=== PATIENT | male | born 1965 | race Hispanic/Latino ===

== ENCOUNTER 2016-12-15 07:51 | Outpatient (CLI) | payer BC ==
[2016-12-15 08:23] LABS: Blood Urea Nitrogen 11 mg/dL (9-20)
--- NOTE | 2016-12-15 10:41 | Cat Scan Report ---
CTA abdomen, pelvis, lower extremities: Peripheral vascular disease. 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 Following IV contrast administration transverse images are obtained from the low chest to the feet with coronal and sagittal 2-D reformatted images as well as 3-D MIPP images. Comparison made to prior exam April 2013. Images of the lower chest abdomen and pelvis demonstrate bilateral fat containing inguinal hernias but no other soft tissue findings. There is a total right hip replacement. The hip has occurred since prior study but no change in hernias. The visualized portion of the thoracic aorta is unremarkable. The major aortic branches are present and patent. There is mural thrombus in the distal abdominal aorta with some scattered mural calcification. No significant stenosis and no aneurysm noted. The left common iliac artery is moderately larger than the left with a maximum diameter of 1.5 cm. This is essentially the same as previously noted. The right common iliac artery contains mural thrombus but no significant stenosis. Both iliac arteries bifurcate normally but there appear to be stenotic lesions involving the internal iliacs bilaterally. There is focal mural thrombus involving the proximal right common femoral artery narrowing the lumen less than 50%. Just proximal to the right femoral bifurcation there may be a significant stenosis however visualization is compromised by streak artifact of the prosthetic right hip. This was previously present. Right lower extremity: The FSA is continuously patent as is the popliteal and common peroneal artery. Trifurcation is patent and there is continuous 3 vessel runoff to the foot. Left lower extremity: The SFA occludes in the mid femur. This is slightly higher than the occlusion seen on prior study. An SFA graft appears occluded. 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 There is proximal reconstitution of the anterior tibial artery which is then continuously patent to the foot. There is distal reconstitution of the posterior tibial artery supplying the foot. Impressions: 1. Noncritical appearing stenoses involving the right iliac, and common femoral arteries. High-grade stenoses of the internal iliac artery. 2. Stable dilatation of the left common iliac artery with persistent high grade stenosis of the internal iliac artery. 3. SFA occlusion with suboptimal collateral reconstitution of runoff vessels to the foot. SFA graft occlusion.
== END 2016-12-15 07:52 | disposition home or self-care (01) ==
LOC: CT 07:51
PROVIDERS: ATTEND Surgery Vascular Surgery
DX: I71.4 Abdominal aortic aneurysm, without rupture (principal); I70.213 Atherosclerosis of native arteries of extremities with intermittent claudication, bilateral legs; I72.3 Aneurysm of iliac artery; I74.09 Other arterial embolism and thrombosis of abdominal aorta; K40.90 Unilateral inguinal hernia, without obstruction or gangrene, not specified as recurrent; F17.200 Nicotine dependence, unspecified, uncomplicated; Z96.641 Presence of right artificial hip joint
CPT/HCPCS: 36415; 75635; 82565; 84520; Q9967

== ENCOUNTER 2017-03-28 08:15 | Day surgery (SDC) | payer BC ==
[~2017-03-28 08:15] MED LIST: ANCEF/STERILE WATER 2 GM/20 ML 2 GM/20 ML SYRINGE IV NR; NACL 0.9% 1000 ML 1,000 ML IV SCH
[2017-03-28] MEDS ORDERED: SODIUM BICARBONATE ONE (11:48)
[2017-03-28] MEDS ORDERED: XYLOCAINE 1% 20 mL ONE (11:48)
[2017-03-28] MEDS ORDERED: NEO SYNEPHRINE/NS Syringe(OR USE) IV ONE (12:00)
[2017-03-28] MEDS ORDERED: NACL BACTERIOSTATIC INFILTRATI ONE (12:13)
[2017-03-28 12:35] LABS: Basophils % (Auto) 1.6 % (0.0-1.8); Eosinophils % (Auto) 6.1 % (0.0-4.3); Hematocrit 38.8 % (35.5-45.6); Mean Corpuscular HGB Conc 33 % (32-34); Mean Corpuscular Hemoglobin 32 pg (28-32); Mean Corpuscular Volume 97 fl (84-94); Platelet Count 272 K/mm3 (140-440); Red Blood Count 4.02 M/mm3 (3.65-5.03); White Blood Count 8.1 K/mm3 (4.5-11.0)
[2017-03-28 12:46] LABS: INR 1.16 (0.87-1.13)
[2017-03-28 12:48] LABS: Anion Gap 15 mmol/L; BUN/Creatinine Ratio 19; Blood Urea Nitrogen 17 mg/dL (9-20); Calcium 9.3 mg/dL (8.4-10.2); Carbon Dioxide 25 mmol/L (22-30); Chloride 100.4 mmol/L (98-107); Glucose 96 mg/dL (75-100); Potassium 4.4 mmol/L (3.6-5.0); Sodium 136 mmol/L (137-145)
[2017-03-28] MEDS ORDERED: PEPCID PO NR (13:00)
[2017-03-28] MEDS ORDERED: VERSED IV NR (13:00)
[2017-03-28] MEDS ORDERED: DIPRIVAN 10 MG/ML IV ONE ×2 (13:10→14:12)
[2017-03-28] MEDS ORDERED: DILAUDID ONE (13:11)
[2017-03-28] MEDS ORDERED: XYLOCAINE MPF 2% ONE (13:11)
--- NOTE | 2017-03-28 13:35 | Short Stay Summary ---
Short Stay Documentation Date of service: 03/28/17 Narrative H&P: See H&P - History H&P: obtained from office - Allergies and Medications Current Medications: Allergies No Known Allergies Allergy (Verified 03/27/17 10:30) Home Medications Medication Instructions Recorded Confirmed Last Taken Type AtorvaSTATin [Lipitor] 20 mg PO QHS 01/27/17 03/27/17 03/27/17 History Clopidogrel [Plavix] 75 mg PO QDAY 01/27/17 03/28/17 03/28/17 05:00 History Gemfibrozil [Lopid] 600 mg PO BID 01/27/17 03/27/17 03/27/17 History Apixaban [Eliquis] 5 mg PO Q12HR #60 tablet 03/12/17 03/28/17 03/28/17 05:00 Rx oxyCODONE /ACETAMINOPHEN [Percocet 1 tab PO Q6HR PRN 03/28/17 03/28/17 03/27/17 History 5/325 mg] Active Medications Famotidine (Pepcid) 20 mg PO PREOP NR Stop: 03/28/17 23:59 Last Admin: 03/28/17 13:21 Dose: 20 mg Cefazolin Sodium (Ancef/Sterile Water 2 Gm/20 Ml) 2 gm in 20 mls @ 80 mls/hr IV PREOP NR PRN Reason: Protocol Stop: 03/28/17 23:59 Sodium Chloride (Nacl 0.9% 1000 Ml) 1,000 mls @ 42 mls/hr IV DIRECT KELLY Last Admin: 03/28/17 12:25 Dose: 42 mls/hr Midazolam HCl (Versed) 2 mg IV PREOP NR Stop: 03/28/17 23:59 Last Admin: 03/28/17 13:22 Dose: 2 mg - Brief post op/procedure progress note Date of procedure: 03/28/17 Pre-op diagnosis: Nonhealing Left Leg Wound Post-op diagnosis: same Procedure: 1. Excisional Debridement of Left Leg Wound Skin and Soft Tissue Measuring (10 x 1.5 x 1 cm) 2. Wound VAC Placement Anesthesia: MAC, local Surgeon: BRITTNEY PETERSEN Estimated blood loss: minimal Pathology: list (leg skin and soft tissue) Specimen disposition: discarded - Disposition Condition at discharge: Good Disposition: DC-01 TO HOME OR SELFCARE Short Stay Discharge Plan Activity: no restrictions Wound: per wound nurse instructions Follow up with: LENA MCCARTHY MD [Primary Care Provider] - 7 Days BRITTNEY PETERSEN MD [Staff Physician] - 14 Days Prescriptions: HYDROcodone/APAP 5-325 [[place] 5/325] 1 each PO Q6HR PRN #50 tablet PRN Reason: Pain
[2017-03-28] MEDS ORDERED: ZOFRAN IV PRN (13:42)
[2017-03-28] MEDS ORDERED: DILAUDID IV PRN (13:42)
[2017-03-28] MEDS ORDERED: PERCOCET 5/325 PO PRN (13:42)
--- NOTE | 2017-03-28 13:42 | Anesthesia Consultation ---
Anesthesia Consult and Med Hx Date of service: 03/28/17 - Airway Anesthetic Teeth Evaluation: Good ROM Head & Neck: Adequate Mental/Hyoid Distance: Adequate Mallampati Class: Class II Intubation Access Assessment: Probably Good - Pulmonary Exam CTA: Yes - Cardiac Exam Cardiac Exam: RRR - Pre-Operative Health Status ASA Pre-Surgery Classification: ASA2 Proposed Anesthetic Plan: General - Pulmonary Hx Smoking: Yes Hx Respiratory Symptoms: No - Cardiovascular System Hx Hypertension: No Hx Peripheral Vascular Disease: Yes (s/p reconstructive surgeries both LEs) - Central Nervous System Hx Psychiatric Problems: No - Gastrointestinal Hx Gastroesophageal Reflux Disease: No - Other Systems Hx Alcohol Use: Yes (occas) Hx Substance Use: No Hx Cancer: No
--- NOTE | 2017-03-28 13:42 | Anesthesia Day of Surgery ---
Anesthesia Day of Surgery - Day of Surgery Patient Examined: Yes Patient H&P Reviewed: Yes Patient is NPO: Yes
[2017-03-28] MEDS ORDERED: SUBLIMAZE ONE (14:03)
[2017-03-28] MEDS ORDERED: XYLOCAINE 1% 20 mL INFILTRATI ONE (14:03)
[2017-03-28] MEDS ORDERED: NACL 0.9% IR ONE (14:03)
[2017-03-28] MEDS ORDERED: ZOFRAN ONE (14:14)
[2017-03-28 15:24] VITALS: BP 112/78
--- NOTE | 2017-03-28 17:03 | Post Anesthesia Evaluation ---
- Post Anesthesia Evaluation Patient Participated: Yes Airway Patent: Yes Stable Respiratory Function: Yes Nausea/Vomiting: No Temp > 96.8F: Yes Pain Manageable: Yes Adequeate Hydration: Yes Anesthesia Complications: No
--- NOTE | 2017-04-03 10:33 | Operative Report ---
Operative Report Operative Report: Date of Procedure: 03/28/2017 Pre-operative Diagnosis: Nonhealing Left Leg Wound Post-operative Diagnosis: Same Procedure(s): 1. Excisional Debridement of Left Leg Wound Skin and Soft Tissue Measuring (10 x 1.5 x 1 cm) 2. Wound VAC Placement Surgeon: Josemanuel Deng M.D. Child Day Care Provider: None Anesthesia: Local/MAC EBL: Minimal Counts: Correct Complications: None Condition: Stable Findings: The wound was debrided to healthy viable tissue Specimen: Necrotic skin and soft tissue was discarded Indication: The patient is a 51-year-old male who underwent a redo left femoropopliteal bypass and had superficial wound dehiscence of the calf wound. He healed the superior portion however the mid and distal portion did not heal despite wound care. He is in need of debridement and wound VAC placement. He was given the risks, benefits, and alternative procedures and consented to the procedure. Description of Procedure: The patient was brought to the operating room and laid in supine position. After he was adequately sedated his left leg was prepped and draped in normal sterile fashion. A 10 blade was used to sharply excise the necrotic skin edges on each side of the wounds until I was at the healthy skin edges. Curettes were then used to debris the soft tissue within the bed until all necrotic and fibrinous tissue had been removed. The wound was then copiously irrigated and then a wound VAC was placed sterilely with a adequate seal. A Kerlix was then loosely wrapped around the leg. The patient tolerated the procedure well. All sponge, needle, and instrument counts were correct. The patient was taken to the recovery area in stable condition.
== END 2017-03-28 17:11 | disposition home or self-care (01) ==
LOC: OR 08:15
PROVIDERS: ATTEND Surgery Vascular Surgery
DX: T81.89XA Other complications of procedures, not elsewhere classified, initial encounter (principal); L97.229 Non-pressure chronic ulcer of left calf with unspecified severity; I70.212 Atherosclerosis of native arteries of extremities with intermittent claudication, left leg; E78.00 Pure hypercholesterolemia, unspecified; M19.90 Unspecified osteoarthritis, unspecified site; F17.200 Nicotine dependence, unspecified, uncomplicated; Z79.01 Long term (current) use of anticoagulants; Z79.899 Other long term (current) drug therapy; Z98.890 Other specified postprocedural states; Z96.641 Presence of right artificial hip joint; Z86.718 Personal history of other venous thrombosis and embolism; Z80.9 Family history of malignant neoplasm, unspecified; Y83.2 Surgical operation with anastomosis, bypass or graft as the cause of abnormal reaction of the patient, or of later complication, without mention of misadventure at the time of the procedure
CPT/HCPCS: 11043; 36415; 80048; 85025; 85610; J0690; J1170; J2250; J2370; J2405; J2704; J3010; J7030

== ENCOUNTER 2017-05-19 12:07 | Inpatient (IN) | payer BC, OTHER ==
[2017-05-19 15:23] LABS: Basophils # (Auto) 0.1 K/mm3 (0.0-0.1); Basophils % (Auto) 0.8 % (0.0-1.8); Eosinophils # (Auto) 0.2 K/mm3 (0.0-0.4); Eosinophils % (Auto) 2.1 % (0.0-4.3); Hematocrit 43.6 % (35.5-45.6); Hemoglobin 14.5 gm/dl (11.8-15.2); Lymphocytes # (Auto) 2.5 K/mm3 (1.2-5.4); Mean Corpuscular HGB Conc 33 % (32-34); Mean Corpuscular Hemoglobin 32 pg (28-32); Mean Corpuscular Volume 96 fl (84-94); Monocytes # (Auto) 0.6 K/mm3 (0.0-0.8); Monocytes % (Auto) 7.2 % (0.0-7.3); Platelet Count 221 K/mm3 (140-440); Red Blood Count 4.55 M/mm3 (3.65-5.03); Red Cell Distribution Width 16.6 % (13.2-15.2)
[2017-05-19 15:43] LABS: BUN/Creatinine Ratio 13; Blood Urea Nitrogen 12 mg/dL (9-20); Calcium 9.6 mg/dL (8.4-10.2); Hemolysis Index 4
--- NOTE | 2017-05-19 20:42 | Emergency Department Report ---
ED Extremity Problem HPI - General Chief complaint: Extremity Injury, Lower Stated complaint: LEFT FOOT PAIN Time Seen by Provider: 05/19/17 20:09 Source: patient Mode of arrival: Ambulatory Limitations: No Limitations - History of Present Illness Initial comments: 51-year-old male history of left them pop bypass by Dr. Deng has been having increasing pain in the foot with temperature change with some discoloration of the toe on the left side with some rest pain off and on for several days discoloration of the toes is x2wks, some temp change to toes l foot, no black or necrotic tissue MD Complaint: extremity pain Location: left, lower extremity, toe Quality: burning - Related Data Home Medications Medication Instructions Recorded Confirmed Last Taken AtorvaSTATin [Lipitor] 20 mg PO QHS 01/27/17 03/27/17 03/27/17 Clopidogrel [Plavix] 75 mg PO QDAY 01/27/17 03/28/17 03/28/17 05:00 Gemfibrozil [Lopid] 600 mg PO BID 01/27/17 03/27/17 03/27/17 oxyCODONE /ACETAMINOPHEN [Percocet 1 tab PO Q6HR PRN 03/28/17 03/28/17 03/27/17 5/325 mg] Previous Rx's Medication Instructions Recorded Last Taken Type Apixaban [Eliquis] 5 mg PO Q12HR #60 tablet 03/12/17 03/28/17 05:00 Rx HYDROcodone/APAP 5-325 [[place] 1 each PO Q6HR PRN #50 tablet 03/28/17 Unknown Rx 5/325] Allergies Allergy/AdvReac Type Severity Reaction Status Date / Time No Known Allergies Allergy Verified 03/27/17 10:30 ED Review of Systems ROS: Stated complaint: LEFT FOOT PAIN Other details as noted in HPI Comment: All other systems reviewed and negative Constitutional: no symptoms reported. denies: diaphoresis, fever, malaise, weakness Respiratory: denies: no symptoms reported, cough, orthopnea, shortness of breath , SOB with exertion, SOB at rest, stridor, wheezing Cardiovascular: denies: chest pain, palpitations, dyspnea on exertion, orthopnea , edema, syncope, paroxysmal nocturnal dyspnea Gastrointestinal: denies: abdominal pain, nausea, vomiting, diarrhea, constipation, hematemesis, melena, hematochezia Musculoskeletal: arthralgia, myalgia Skin: change in color Neurological: denies: numbness, paresthesias, confusion, abnormal gait, vertigo ED Past Medical Hx - Past Medical History Hx Hypertension: No Hx HIV: No Additional medical history: ruptured blood vessel to left leg - Surgical History Hx Cholecystectomy: No Hx Appendectomy: No Hx Breast Surgery: No Additional Surgical History: bypass left leg - Social History Smoking Status: Former Smoker Substance Use Type: None - Medications Home Medications: Home Medications Medication Instructions Recorded Confirmed Last Taken Type AtorvaSTATin [Lipitor] 20 mg PO QHS 01/27/17 03/27/17 03/27/17 History Clopidogrel [Plavix] 75 mg PO QDAY 01/27/17 03/28/17 03/28/17 05:00 History Gemfibrozil [Lopid] 600 mg PO BID 01/27/17 03/27/17 03/27/17 History Apixaban [Eliquis] 5 mg PO Q12HR #60 tablet 03/12/17 03/28/17 03/28/17 05:00 Rx HYDROcodone/APAP 5-325 [[place] 1 each PO Q6HR PRN #50 tablet 03/28/17 Unknown Rx 5/325] oxyCODONE /ACETAMINOPHEN [Percocet 1 tab PO Q6HR PRN 03/28/17 03/28/17 03/27/17 History 5/325 mg] ED Physical Exam - General Limitations: No Limitations General appearance: alert, in no apparent distress, anxious - Head Head exam: Present: atraumatic, normocephalic - Eye Eye exam: Present: normal appearance, PERRL, EOMI - ENT ENT exam: Present: normal exam, normal orophraynx, mucous membranes moist - Neck Neck exam: Present: normal inspection. Absent: tenderness, meningismus - Respiratory Respiratory exam: Present: normal lung sounds bilaterally. Absent: respiratory distress, wheezes, rales, rhonchi, stridor, chest wall tenderness, accessory muscle use - Cardiovascular Cardiovascular Exam: Present: regular rate, normal heart sounds - GI/Abdominal GI/Abdominal exam: Present: soft. Absent: tenderness, guarding, rebound - Extremities Exam Extremities exam: Present: other (extremity within normal limits left lower extremity dusky and cool toes normal process appreciated chronic poor wound healing left medial thigh ? palpable DP pulse) - Back Exam Back exam: Present: normal inspection, full ROM. Absent: CVA tenderness (R), muscle spasm, paraspinal tenderness, vertebral tenderness - Neurological Exam Neurological exam: Present: alert, oriented X3, CN II-XII intact. Absent: motor sensory deficit - Skin Skin exam: Present: cyanosis, other (no necrosis, cool to touch but +cr). Absent: petechiae, ecchymosis ED Course Vital Signs 05/19/17 12:43 Temperature 98.8 F Pulse Rate 83 Respiratory 18 Rate Blood Pressure 132/75 O2 Sat by Pulse 98 Oximetry - Reevaluation(s) Reevaluation #1: 05/19/17 21:56 Patient had Doppler arterial study of the left lower ext w/ wave form to bypass ED Medical Decision Making - Lab Data Result diagrams: 05/19/17 12:48 05/19/17 15:08 - Radiology Data Radiology results: report reviewed - Medical Decision Making Case discussed with Dr. Bryant who will admit patient for further evaluation and intervention of decreased perfusion left lower extremity history of femoropopliteal bypass patient currently is on eliquis some Plavix case will be discussed with hospitalist for admit Critical care attestation.: If time is entered above; I have spent that time in minutes in the direct care of this critically ill patient, excluding procedure time. ED Disposition Clinical Impression: Vascular insufficiency of limb Disposition: DC-09 OP ADMIT IP TO THIS HOSP Is pt being admited?: Yes Condition: Stable Referrals: NICOLA D[facility] VASCULAR SURGEON [Other] - 3-5 Days Time of Disposition: 21:58
[2017-05-20] MEDS ORDERED: PERCOCET 5/325 ONE (01:21)
--- NOTE | 2017-05-20 04:30 | History and Physical Report ---
History of Present Illness Date of examination: 05/19/17 Date of admission: 05/19/17 22:14 Chief complaint: Left leg pain History of present illness: 51-year-old male with past medical history significant for hyperlipidemia, left popliteal artery aneurysm status bypass graft presented to the emergency department complaining of left foot pain of 2 weeks' duration. Patient saw Dr. Deng in the office on Monday and told him to come to emergency department if the pain is getting worse. patient said pain in the foot is throbbing in nature and sometimes sharp, 4-6 out of 10 in intensity, there is mild discoloration of the foot but no different from what he had when he went to vascular office. The ED doctor called Dr Bryant and recommend to admit for further work up and management. REVIEW OF SYSTEMS: GENERAL: no weight change, no fatigue, no fever HEAD: no head ache EYES: no blurry vision, no acute visual loss EARS: no hearing loss, no discharge, no earache NOSE: no stuffiness, no sneezing, no discharge MOUTH, THROAT AND NECK: no bleeding gums, no sore throat, no swollen neck CARDIAC: no palpitations, no dyspnea on exertion, no orthopnea, no PND, no edema , no chest pain RESPIRATORY: no shortness of breath, no wheeze, no cough, no sputum, no hemoptysis, no asthma GI: no decreased appetite, no nausea, no vomiting, no dysphagia, no diarrhea, no constipation, no abdominal pain URINARY: no change in frequency, no urgency, no polyuria, no hematuria, no incontinence MUSCULOSKELETAL: As stated in the HPI. NEUROLOGIC: no loss of sensation/numbness, no tingling, no tremors, no weakness/ paralysis HEMATOLOGIC: no anemia, no easy bruising SKIN: no rashes ENDOCRINE: no heat/cold intolerance, no polyuria, no polydipsia, no thyroid problems, no diabetes PSYCHIATRIC: no anxiety, no depression, no suicidal ideations Past History Past Medical History: hyperlipidemia, other (popliteal artery aneurysm) Past Surgical History: Other Medications and Allergies Allergies Allergy/AdvReac Type Severity Reaction Status Date / Time No Known Allergies Allergy Verified 03/27/17 10:30 Home Medications Medication Instructions Recorded Confirmed Last Taken Type AtorvaSTATin [Lipitor] 20 mg PO QHS 09/22/17 11/20/17 11/20/17 History Clopidogrel [Plavix] 75 mg PO QDAY 01/27/17 03/28/17 03/28/17 05:00 History Gemfibrozil [Lopid] 600 mg PO BID 01/27/17 03/27/17 03/27/17 History Apixaban [Eliquis] 5 mg PO Q12HR #60 tablet 03/12/17 03/28/17 03/28/17 05:00 Rx HYDROcodone/APAP 5-325 [[place] 1 each PO Q6HR PRN #50 tablet 03/28/17 Unknown Rx 5/325] oxyCODONE /ACETAMINOPHEN [Percocet 1 tab PO Q6HR PRN 03/28/17 03/28/17 03/27/17 History 5/325 mg] Active Meds: Active Medications Apixaban (Eliquis) 5 mg PO Q12HR KELLY PRN Reason: Protocol Atorvastatin Calcium (Lipitor) 20 mg PO QHS KELLY Clopidogrel Bisulfate (Plavix) 75 mg PO QDAY KELLY Gemfibrozil (Lopid) 600 mg PO BID KELLY Oxycodone/Acetaminophen (Percocet 5/325) 2 tab PO Q6H PRN PRN Reason: Pain, Moderate (4-6) Exam - Constitutional Vitals: Temp Pulse Resp BP Pulse Ox 98.5 F 64 18 118/63 95 05/20/17 01:54 05/20/17 01:54 05/20/17 01:54 05/20/17 01:54 05/20/17 01:54 Results - Labs CBC & Chem 7: 05/19/17 12:48 05/19/17 15:08 Labs: Laboratory Last Values WBC 7.9 K/mm3 (4.5-11.0) 05/19/17 12:48 RBC 4.55 M/mm3 (3.65-5.03) 05/19/17 12:48 Hgb 14.5 gm/dl (11.8-15.2) 05/19/17 12:48 Hct 43.6 % (35.5-45.6) 05/19/17 12:48 MCV 96 fl (84-94) H 05/19/17 12:48 MCH 32 pg (28-32) 05/19/17 12:48 MCHC 33 % (32-34) 05/19/17 12:48 RDW 16.6 % (13.2-15.2) H 05/19/17 12:48 Plt Count 221 K/mm3 (140-440) 05/19/17 12:48 Lymph % (Auto) 32.0 % (13.4-35.0) 05/19/17 12:48 [place] % (Auto) 7.2 % (0.0-7.3) 05/19/17 12:48 Eos % (Auto) 2.1 % (0.0-4.3) 05/19/17 12:48 Baso % (Auto) 0.8 % (0.0-1.8) 05/19/17 12:48 Lymph # 2.5 K/mm3 (1.2-5.4) 05/19/17 12:48 [place] # 0.6 K/mm3 (0.0-0.8) 05/19/17 12:48 Eos # 0.2 K/mm3 (0.0-0.4) 05/19/17 12:48 Baso # 0.1 K/mm3 (0.0-0.1) 05/19/17 12:48 Seg Neutrophils % 57.9 % (40.0-70.0) 05/19/17 12:48 Seg Neutrophils # 4.6 K/mm3 (1.8-7.7) 05/19/17 12:48 Sodium 139 mmol/L (137-145) 05/19/17 15:08 Potassium 4.1 mmol/L (3.6-5.0) 05/19/17 15:08 Chloride 99.0 mmol/L (98-107) 05/19/17 15:08 Carbon Dioxide 26 mmol/L (22-30) 05/19/17 15:08 Anion Gap 18 mmol/L 05/19/17 15:08 BUN 12 mg/dL (9-20) 05/19/17 15:08 Creatinine 0.9 mg/dL (0.8-1.5) 05/19/17 15:08 Estimated GFR > 60 ml/min 05/19/17 15:08 BUN/Creatinine Ratio 13 % 05/19/17 15:08 Glucose 111 mg/dL (75-100) H 05/19/17 15:08 Lactic Acid 1.60 mmol/L (0.7-2.0) 05/19/17 15:00 Calcium 9.6 mg/dL (8.4-10.2) 05/19/17 15:08 Total Creatine Kinase 90 units/L (55-170) 05/19/17 15:08 CK-MB (CK-2) 2.0 ng/mL (0.0-4.0) 05/19/17 15:08 Troponin T < 0.010 ng/mL (0.00-0.029) 05/19/17 15:08 Blood Type A POSITIVE 05/19/17 15:08 Antibody Screen Negative 05/19/17 15:08 Assessment and Plan Assessment and plan: Left lower extremity arterial insufficiency - Vascular surgery consulted - Recommend to continue Plavix and eliquis - Continue home medications Hyperlipidemia - Continue gemfibrozil DVT prophylaxis -Patient is on eliquis Disposition - Admit to MedSur floor Advance Directives: Yes VTE prophylaxis?: Chemical Plan of care discussed with patient/family: Yes
[2017-05-20 07:29] LABS: Basophils # (Auto) 0.1 K/mm3 (0.0-0.1); Basophils % (Auto) 0.9 % (0.0-1.8); Eosinophils # (Auto) 0.3 K/mm3 (0.0-0.4); Eosinophils % (Auto) 4.1 % (0.0-4.3); Hemoglobin 13.6 gm/dl (11.8-15.2); Lymphocytes # (Auto) 2.8 K/mm3 (1.2-5.4); Lymphocytes % (Auto) 42.3 % (13.4-35.0); Mean Corpuscular HGB Conc 34 % (32-34); Mean Corpuscular Hemoglobin 32 pg (28-32); Mean Corpuscular Volume 95 fl (84-94); Monocytes # (Auto) 0.7 K/mm3 (0.0-0.8); Monocytes % (Auto) 10.6 % (0.0-7.3); Platelet Count 191 K/mm3 (140-440); Red Blood Count 4.21 M/mm3 (3.65-5.03); Red Cell Distribution Width 16.5 % (13.2-15.2)
[2017-05-20 07:34] LABS: BUN/Creatinine Ratio 14; Blood Urea Nitrogen 13 mg/dL (9-20); Hemolysis Index 6
--- NOTE | 2017-05-20 09:57 | Consultation ---
History of Present Illness - Reason for Consult Consult date: 05/20/17 left lower extremity pain - History of Present Illness This is a 51-year-old male well known to our service. He has an extensive vascular history. He initially had a left sided femoropopliteal bypass graft placed which required a revision. Ultimately, he required multiple subsequent catheterizations with thrombolysis and other interventions. Currently, he has been having left foot pain at rest. He came to the ED last night, with a primary complaint of 2 weeks of left foot pain. An arterial duplex was done at the time which showed significantly diminished flow in the bypass graft and monophasic wave forms in the infrapopliteal vessels. In addition to other medications, he is currently on Plavix and Eliquis at home. Past History Past Medical History: hyperlipidemia, other (popliteal artery aneurysm) Past Surgical History: Other Medications and Allergies Allergies Allergy/AdvReac Type Severity Reaction Status Date / Time No Known Allergies Allergy Verified 03/27/17 10:30 Home Medications Medication Instructions Recorded Confirmed Last Taken Type AtorvaSTATin [Lipitor] 20 mg PO QHS 01/27/17 03/27/17 03/27/17 History Clopidogrel [Plavix] 75 mg PO QDAY 01/27/17 03/28/17 03/28/17 05:00 History Gemfibrozil [Lopid] 600 mg PO BID 01/27/17 03/27/17 03/27/17 History Apixaban [Eliquis] 5 mg PO Q12HR #60 tablet 03/12/17 03/28/17 03/28/17 05:00 Rx HYDROcodone/APAP 5-325 [[place] 1 each PO Q6HR PRN #50 tablet 03/28/17 Unknown Rx 5/325] oxyCODONE /ACETAMINOPHEN [Percocet 1 tab PO Q6HR PRN 03/28/17 03/28/17 03/27/17 History 5/325 mg] Active Meds: Active Medications Apixaban (Eliquis) 5 mg PO Q12HR KELLY PRN Reason: Protocol Atorvastatin Calcium (Lipitor) 20 mg PO QHS KELLY Clopidogrel Bisulfate (Plavix) 75 mg PO QDAY KELLY Gemfibrozil (Lopid) 600 mg PO BID KELLY Oxycodone/Acetaminophen (Percocet 5/325) 2 tab PO Q6H PRN PRN Reason: Pain, Moderate (4-6) Exam - Constitutional Vitals: Temp Pulse Resp BP Pulse Ox 98.4 F 62 18 109/63 94 05/20/17 08:41 05/20/17 08:41 05/20/17 08:41 05/20/17 08:41 05/20/17 08:41 General appearance: Present: no acute distress, well-nourished - EENT ENT: hearing intact, clear oral mucosa - Neck Neck: Present: supple, normal ROM - Respiratory Respiratory effort: normal - Extremities Extremities: abnormal (both lower extremities are warm. The distal aspect of the left toes are slightly cool to the touch. There is mild tenderness to palpation of the left foot. No pulses are palpable. He is able to plantar and dorsiflex, but with pain.) Results - Labs CBC & Chem 7: 05/20/17 06:18 05/20/17 06:18 Labs: Abnormal lab results 05/19/17 05/19/17 05/20/17 Range/Units 12:48 15:08 06:18 MCV 96 H 95 H (84-94) fl RDW 16.6 H 16.5 H (13.2-15.2) % Lymph % (Auto) 42.3 H (13.4-35.0) % [place] % (Auto) 10.6 H (0.0-7.3) % Potassium (3.6-5.0) mmol/L Glucose 111 H (75-100) mg/dL 05/20/17 Range/Units 06:18 MCV (84-94) fl RDW (13.2-15.2) % Lymph % (Auto) (13.4-35.0) % [place] % (Auto) (0.0-7.3) % Potassium 3.5 L (3.6-5.0) mmol/L Glucose 102 H (75-100) mg/dL - Imaging and Cardiology Venous US: report reviewed, image reviewed Assessment and Plan This is a 51-year-old male with left lower extremity peripheral vascular disease and a long history of surgical and catheter-based interventions with our service. Currently, he has a left lower extremity femoral popliteal bypass and rest pain of his left foot. He is currently in no acute distress and is resting comfortably in bed. I will arrange to have him come [facility] Monday for left lower extremity angiography and revascularization with Dr. Deng. Hospitalist management of this patient is greatly appreciated.
--- NOTE | 2017-05-20 11:45 | Progress Note ---
Assessment and Plan Assessment and plan: Left lower extremity arterial insufficiency - Vascular surgery following and will arrange to have him come to the [facility] on Monday for left lower extremity angiography and revascularization with Dr. Deng. - Continue Plavix and eliquis - Continue home medications Hyperlipidemia - Continue gemfibrozil DVT prophylaxis -Patient is on eliquis Disposition - Inpatient management History Interval history: No new issues overnight. Hospitalist Physical - Constitutional Vitals: Temp Pulse Resp BP Pulse Ox 98.4 F 62 18 109/63 94 05/20/17 08:41 05/20/17 08:41 05/20/17 08:41 05/20/17 08:41 05/20/17 08:41 General appearance: Present: no acute distress, well-nourished - EENT Eyes: Present: PERRL, EOM intact ENT: hearing intact, clear oral mucosa, dentition normal - Neck Neck: Present: supple, normal ROM - Respiratory Respiratory effort: normal Respiratory: bilateral: CTA - Cardiovascular Rhythm: regular Heart Sounds: Present: S1 & S2. Absent: gallop, rub - Extremities Extremities: no ischemia, No edema, Full ROM - Abdominal General gastrointestinal: soft, non-tender, non-distended, normal bowel sounds - Integumentary Integumentary: Present: clear, warm, dry - Neurologic Neurologic: CNII-XII intact, moves all extremities Results - Labs CBC & Chem 7: 05/20/17 06:18 05/20/17 06:18 Labs: Laboratory Last Values WBC 6.6 K/mm3 (4.5-11.0) 05/20/17 06:18 RBC 4.21 M/mm3 (3.65-5.03) 05/20/17 06:18 Hgb 13.6 gm/dl (11.8-15.2) 05/20/17 06:18 Hct 40.0 % (35.5-45.6) 05/20/17 06:18 MCV 95 fl (84-94) H 05/20/17 06:18 MCH 32 pg (28-32) 05/20/17 06:18 MCHC 34 % (32-34) 05/20/17 06:18 RDW 16.5 % (13.2-15.2) H 05/20/17 06:18 Plt Count 191 K/mm3 (140-440) 05/20/17 06:18 Lymph % (Auto) 42.3 % (13.4-35.0) H 05/20/17 06:18 [place] % (Auto) 10.6 % (0.0-7.3) H 05/20/17 06:18 Eos % (Auto) 4.1 % (0.0-4.3) 05/20/17 06:18 Baso % (Auto) 0.9 % (0.0-1.8) 05/20/17 06:18 Lymph # 2.8 K/mm3 (1.2-5.4) 05/20/17 06:18 [place] # 0.7 K/mm3 (0.0-0.8) 05/20/17 06:18 Eos # 0.3 K/mm3 (0.0-0.4) 05/20/17 06:18 Baso # 0.1 K/mm3 (0.0-0.1) 05/20/17 06:18 Seg Neutrophils % 42.1 % (40.0-70.0) 05/20/17 06:18 Seg Neutrophils # 2.8 K/mm3 (1.8-7.7) 05/20/17 06:18 Sodium 139 mmol/L (137-145) 05/20/17 06:18 Potassium 3.5 mmol/L (3.6-5.0) L 05/20/17 06:18 Chloride 101.8 mmol/L (98-107) 05/20/17 06:18 Carbon Dioxide 24 mmol/L (22-30) 05/20/17 06:18 Anion Gap 17 mmol/L 05/20/17 06:18 BUN 13 mg/dL (9-20) 05/20/17 06:18 Creatinine 0.9 mg/dL (0.8-1.5) 05/20/17 06:18 Estimated GFR > 60 ml/min 05/20/17 06:18 BUN/Creatinine Ratio 14 % 05/20/17 06:18 Glucose 102 mg/dL (75-100) H 05/20/17 06:18 Lactic Acid 1.60 mmol/L (0.7-2.0) 05/19/17 15:00 Calcium 9.0 mg/dL (8.4-10.2) 05/20/17 06:18 Total Creatine Kinase 90 units/L (55-170) 05/19/17 15:08 CK-MB (CK-2) 2.0 ng/mL (0.0-4.0) 05/19/17 15:08 Troponin T < 0.010 ng/mL (0.00-0.029) 05/19/17 15:08 Blood Type A POSITIVE 05/19/17 15:08 Antibody Screen Negative 05/19/17 15:08
[2017-05-20] MEDS: LOPID PO SCH ×2 (12:34→22:48)
[2017-05-20] MEDS: ELIQUIS PO SCH ×2 (12:34→22:48)
[2017-05-20] MEDS: PLAVIX PO SCH (12:34)
[2017-05-20] MEDS: PERCOCET 5/325 PO PRN ×2 (14:21→22:46)
[2017-05-21 06:59] LABS: Basophils # (Auto) 0.1 K/mm3 (0.0-0.1); Basophils % (Auto) 1.2 % (0.0-1.8); Eosinophils # (Auto) 0.3 K/mm3 (0.0-0.4); Lymphocytes # (Auto) 2.9 K/mm3 (1.2-5.4); Lymphocytes % (Auto) 43.6 % (13.4-35.0); Mean Corpuscular HGB Conc 33 % (32-34); Mean Corpuscular Hemoglobin 32 pg (28-32); Mean Corpuscular Volume 97 fl (84-94); Monocytes # (Auto) 0.8 K/mm3 (0.0-0.8); Monocytes % (Auto) 12.2 % (0.0-7.3); Platelet Count 221 K/mm3 (140-440); Red Blood Count 4.45 M/mm3 (3.65-5.03); Red Cell Distribution Width 16.4 % (13.2-15.2)
[2017-05-21 07:09] LABS: BUN/Creatinine Ratio 12; Blood Urea Nitrogen 12 mg/dL (9-20); Calcium 9.2 mg/dL (8.4-10.2); Hemolysis Index 2
--- NOTE | 2017-05-21 09:12 | Progress Note ---
Assessment and Plan Assessment and plan: Left lower extremity arterial insufficiency - Vascular surgery following and will arrange to have him come to the [facility] on Monday for left lower extremity angiography and revascularization with Dr. Deng. - Continue Plavix and eliquis - Continue home medications Hyperlipidemia - Continue gemfibrozil DVT prophylaxis -Patient is on eliquis Disposition - Inpatient management History Interval history: No new issues overnight. Hospitalist Physical - Constitutional Vitals: Temp Pulse Resp BP Pulse Ox 98.2 F 60 16 107/68 97 05/21/17 07:53 05/21/17 07:53 05/21/17 07:53 05/21/17 07:53 05/21/17 07:53 General appearance: Present: no acute distress, well-nourished - EENT Eyes: Present: PERRL, EOM intact ENT: hearing intact, clear oral mucosa, dentition normal - Neck Neck: Present: supple, normal ROM - Respiratory Respiratory effort: normal Respiratory: bilateral: CTA - Cardiovascular Rhythm: regular Heart Sounds: Present: S1 & S2. Absent: gallop, rub - Extremities Extremities: no ischemia, No edema, Full ROM - Abdominal General gastrointestinal: soft, non-tender, non-distended, normal bowel sounds - Integumentary Integumentary: Present: clear, warm, dry - Neurologic Neurologic: CNII-XII intact, moves all extremities Results - Labs CBC & Chem 7: 05/21/17 06:20 05/21/17 06:20 Labs: Laboratory Last Values WBC 6.7 K/mm3 (4.5-11.0) 05/21/17 06:20 RBC 4.45 M/mm3 (3.65-5.03) 05/21/17 06:20 Hgb 14.0 gm/dl (11.8-15.2) 05/21/17 06:20 Hct 43.0 % (35.5-45.6) 05/21/17 06:20 MCV 97 fl (84-94) H 05/21/17 06:20 MCH 32 pg (28-32) 05/21/17 06:20 MCHC 33 % (32-34) 05/21/17 06:20 RDW 16.4 % (13.2-15.2) H 05/21/17 06:20 Plt Count 221 K/mm3 (140-440) 05/21/17 06:20 Lymph % (Auto) 43.6 % (13.4-35.0) H 05/21/17 06:20 [place] % (Auto) 12.2 % (0.0-7.3) H 05/21/17 06:20 Eos % (Auto) 5.0 % (0.0-4.3) H 05/21/17 06:20 Baso % (Auto) 1.2 % (0.0-1.8) 05/21/17 06:20 Lymph # 2.9 K/mm3 (1.2-5.4) 05/21/17 06:20 [place] # 0.8 K/mm3 (0.0-0.8) 05/21/17 06:20 Eos # 0.3 K/mm3 (0.0-0.4) 05/21/17 06:20 Baso # 0.1 K/mm3 (0.0-0.1) 05/21/17 06:20 Seg Neutrophils % 38.0 % (40.0-70.0) L 05/21/17 06:20 Seg Neutrophils # 2.6 K/mm3 (1.8-7.7) 05/21/17 06:20 Sodium 140 mmol/L (137-145) 05/21/17 06:20 Potassium 4.9 mmol/L (3.6-5.0) D 05/21/17 06:20 Chloride 101.1 mmol/L (98-107) 05/21/17 06:20 Carbon Dioxide 27 mmol/L (22-30) 05/21/17 06:20 Anion Gap 17 mmol/L 05/21/17 06:20 BUN 12 mg/dL (9-20) 05/21/17 06:20 Creatinine 1.0 mg/dL (0.8-1.5) 05/21/17 06:20 Estimated GFR > 60 ml/min 05/21/17 06:20 BUN/Creatinine Ratio 12 % 05/21/17 06:20 Glucose 114 mg/dL (75-100) H 05/21/17 06:20 Lactic Acid 1.60 mmol/L (0.7-2.0) 05/19/17 15:00 Calcium 9.2 mg/dL (8.4-10.2) 05/21/17 06:20 Total Creatine Kinase 90 units/L (55-170) 05/19/17 15:08 CK-MB (CK-2) 2.0 ng/mL (0.0-4.0) 05/19/17 15:08 Troponin T < 0.010 ng/mL (0.00-0.029) 05/19/17 15:08 Blood Type A POSITIVE 05/19/17 15:08 Antibody Screen Negative 05/19/17 15:08
[2017-05-21] MEDS: ELIQUIS PO SCH ×2 (10:48→23:35)
[2017-05-21] MEDS: PLAVIX PO SCH (10:48)
[2017-05-21] MEDS: LOPID PO SCH ×2 (10:48→23:35)
[2017-05-21] MEDS: PERCOCET 5/325 PO PRN ×3 (11:24→23:34)
--- NOTE | 2017-05-21 13:53 | Vascular Lab Report ---
LOWER EXTREMITY ARTERIAL DUPLEX: REASON FOR EXAM: Blue toes of the left foot. COMMENTS ON THE RIGHT: A limited study was done on the right. Triphasic waveforms are seen distally. Velocities are consistent with adequate flow. No significant plaque is identified. Findings are consistent with normal perfusion. Findings are consistent with the ability to heal distal wounds. COMMENTS ON THE LEFT: Triphasic waveforms are seen proximally. Monophasic waveforms are seen distally. The left superficial femoral artery appears to be occluded in its distal portion. Plaque is seen in the distal superficial femoral artery. Findings are consistent with abnormal perfusion. Findings are not consistent with the ability to heal distal wounds. IMPRESSION: RIGHT: No evidence of significant arterial occlusive disease. LEFT:The superficial femoral artery appears to be occluded with significantly reduced flow distally. Recommend further evaluation.
[2017-05-22] MEDS ORDERED: ZOFRAN ONE (10:00)
[2017-05-22] MEDS: ELIQUIS PO SCH (10:52)
[2017-05-22] MEDS: PLAVIX PO SCH (10:52)
[2017-05-22] MEDS: LOPID PO SCH (10:52)
--- NOTE | 2017-05-22 11:18 | Progress Note ---
Assessment and Plan Assessment and plan: Left lower extremity arterial insufficiency - Vascular surgery to perform left lower extremity angiography and revascularization today. - Continue Plavix and eliquis - Continue home medications Hyperlipidemia - Continue gemfibrozil DVT prophylaxis -Patient is on eliquis Disposition - Inpatient management History Interval history: No new issues overnight. Hospitalist Physical - Constitutional Vitals: Temp Pulse Resp BP Pulse Ox 98.3 F 58 L 16 111/60 94 05/22/17 07:28 05/22/17 07:28 05/22/17 07:28 05/22/17 07:28 05/22/17 07:28 General appearance: Present: no acute distress, well-nourished - EENT Eyes: Present: PERRL, EOM intact ENT: hearing intact, clear oral mucosa, dentition normal - Neck Neck: Present: supple, normal ROM - Respiratory Respiratory effort: normal Respiratory: bilateral: CTA - Cardiovascular Rhythm: regular Heart Sounds: Present: S1 & S2. Absent: gallop, rub - Extremities Extremities: no ischemia, No edema, Full ROM - Abdominal General gastrointestinal: soft, non-tender, non-distended, normal bowel sounds - Integumentary Integumentary: Present: clear, warm, dry - Neurologic Neurologic: CNII-XII intact, moves all extremities Results - Labs CBC & Chem 7: 05/21/17 06:20 05/21/17 06:20 Labs: Laboratory Last Values WBC 6.7 K/mm3 (4.5-11.0) 05/21/17 06:20 RBC 4.45 M/mm3 (3.65-5.03) 05/21/17 06:20 Hgb 14.0 gm/dl (11.8-15.2) 05/21/17 06:20 Hct 43.0 % (35.5-45.6) 05/21/17 06:20 MCV 97 fl (84-94) H 05/21/17 06:20 MCH 32 pg (28-32) 05/21/17 06:20 MCHC 33 % (32-34) 05/21/17 06:20 RDW 16.4 % (13.2-15.2) H 05/21/17 06:20 Plt Count 221 K/mm3 (140-440) 05/21/17 06:20 Lymph % (Auto) 43.6 % (13.4-35.0) H 05/21/17 06:20 [place] % (Auto) 12.2 % (0.0-7.3) H 05/21/17 06:20 Eos % (Auto) 5.0 % (0.0-4.3) H 05/21/17 06:20 Baso % (Auto) 1.2 % (0.0-1.8) 05/21/17 06:20 Lymph # 2.9 K/mm3 (1.2-5.4) 05/21/17 06:20 [place] # 0.8 K/mm3 (0.0-0.8) 05/21/17 06:20 Eos # 0.3 K/mm3 (0.0-0.4) 05/21/17 06:20 Baso # 0.1 K/mm3 (0.0-0.1) 05/21/17 06:20 Seg Neutrophils % 38.0 % (40.0-70.0) L 05/21/17 06:20 Seg Neutrophils # 2.6 K/mm3 (1.8-7.7) 05/21/17 06:20 Sodium 140 mmol/L (137-145) 05/21/17 06:20 Potassium 4.9 mmol/L (3.6-5.0) D 05/21/17 06:20 Chloride 101.1 mmol/L (98-107) 05/21/17 06:20 Carbon Dioxide 27 mmol/L (22-30) 05/21/17 06:20 Anion Gap 17 mmol/L 05/21/17 06:20 BUN 12 mg/dL (9-20) 05/21/17 06:20 Creatinine 1.0 mg/dL (0.8-1.5) 05/21/17 06:20 Estimated GFR > 60 ml/min 05/21/17 06:20 BUN/Creatinine Ratio 12 % 05/21/17 06:20 Glucose 114 mg/dL (75-100) H 05/21/17 06:20 Lactic Acid 1.60 mmol/L (0.7-2.0) 05/19/17 15:00 Calcium 9.2 mg/dL (8.4-10.2) 05/21/17 06:20 Total Creatine Kinase 90 units/L (55-170) 05/19/17 15:08 CK-MB (CK-2) 2.0 ng/mL (0.0-4.0) 05/19/17 15:08 Troponin T < 0.010 ng/mL (0.00-0.029) 05/19/17 15: Blood Type A POSITIVE 05/19/17: Antibody Screen Negative 05/19/17:
[2017-05-22] MEDS ORDERED: NACL 0.9% 500 ML 500 ML ONE (11:53)
[2017-05-22] MEDS ORDERED: NACL 0.9% 500 ML 500 ML IV SCH ×2 (12:00)
[2017-05-22] MEDS ORDERED: NACL 0.9% 1000 ML 1,000 ML IV SCH ×2 (12:00→16:00)
[2017-05-22] MEDS ORDERED: VERSED ONE (14:15)
[2017-05-22] MEDS ORDERED: SUBLIMAZE ONE ×2 (14:16)
[2017-05-22] MEDS ORDERED: DIPRIVAN 10 MG/ML IV ONE (14:17)
[2017-05-22] MEDS ORDERED: SUBLIMAZE IV PRN (14:42)
[2017-05-22] MEDS ORDERED: DILAUDID IV PRN (14:42)
[2017-05-22] MEDS ORDERED: ZOFRAN IV PRN (14:42)
--- NOTE | 2017-05-22 14:43 | Anesthesia Day of Surgery ---
Anesthesia Day of Surgery - Day of Surgery Patient Examined: Yes Patient H&P Reviewed: Yes Patient is NPO: Yes
--- NOTE | 2017-05-22 14:44 | Anesthesia Consultation ---
Anesthesia Consult and Med Hx Date of service: 05/22/17 - Airway Anesthetic Teeth Evaluation: Poor ROM Head & Neck: Adequate Mental/Hyoid Distance: Adequate Mallampati Class: Class II - Pulmonary Exam CTA: Yes - Cardiac Exam Cardiac Exam: RRR - Pre-Operative Health Status ASA Pre-Surgery Classification: ASA3 Proposed Anesthetic Plan: General - Pulmonary Hx Smoking: Yes Hx Asthma: No Hx Respiratory Symptoms: No COPD: No Hx Pneumonia: No - Cardiovascular System Hx Hypertension: Yes Hx Peripheral Vascular Disease: Yes (s/p reconstructive surgeries both LEs) - Central Nervous System Hx Psychiatric Problems: No - Gastrointestinal Hx Gastroesophageal Reflux Disease: No - Endocrine Hx End Stage Renal Disease: No - Other Systems Hx Alcohol Use: Yes (occas) Hx Substance Use: No Hx Cancer: No
[2017-05-22] MEDS ORDERED: HEPARIN/NS 5000 UNIT/500ML(CATH LAB) 1,000 ML IR ONE (15:28)
[2017-05-22] MEDS ORDERED: ANCEF/STERILE WATER 2 GM/20 ML 2 GM/20 ML SYRINGE IV ONE (15:28)
[2017-05-22] MEDS: XYLOCAINE 2% INFILTRATI ONE ×2 (15:53→15:58)
[2017-05-22] MEDS ORDERED: MORPHINE IV PRN (15:58)
[2017-05-22] MEDS ORDERED: NACL 0.9% 1000 ML 1,000 ML SHEATH SCH (16:00)
[2017-05-22] MEDS ORDERED: NACL 0.9% 1000 ML 1,000 ML EKOSCLUMEN SCH (16:00)
[2017-05-22] MEDS: HEPARIN 10,000 UNITS/10 ML ONE ×3 (16:11→16:48)
[2017-05-22] MEDS ORDERED: HEPARIN/ 0.45% NACL-25,000 UNIT/500 ML 25,000 UNIT/500 ML BAG ONE (16:18)
[2017-05-22] MEDS: CATHFLO ONE ×2 (16:25→16:48)
[2017-05-22 16:28] LABS: Basophils # (Auto) 0.1 K/mm3 (0.0-0.1); Basophils % (Auto) 0.9 % (0.0-1.8); Eosinophils # (Auto) 0.4 K/mm3 (0.0-0.4); Eosinophils % (Auto) 3.8 % (0.0-4.3); Hemoglobin 13.4 gm/dl (11.8-15.2); Lymphocytes # (Auto) 3.4 K/mm3 (1.2-5.4); Lymphocytes % (Auto) 36.4 % (13.4-35.0); Mean Corpuscular HGB Conc 34 % (32-34); Mean Corpuscular Hemoglobin 32 pg (28-32); Mean Corpuscular Volume 97 fl (84-94); Monocytes # (Auto) 0.8 K/mm3 (0.0-0.8); Monocytes % (Auto) 8.9 % (0.0-7.3); Platelet Count 188 K/mm3 (140-440); Red Blood Count 4.14 M/mm3 (3.65-5.03); Red Cell Distribution Width 16.3 % (13.2-15.2)
[2017-05-22 16:39] LABS: INR 1.15 (0.87-1.13)
[2017-05-22 16:40] LABS: Partial Thromboplastin Time 44.1 Sec. (24.2-36.6)
[2017-05-22 16:44] LABS: BUN/Creatinine Ratio 9; Blood Urea Nitrogen 10 mg/dL (9-20); Calcium 8.4 mg/dL (8.4-10.2); Hemolysis Index 8
[2017-05-22] MEDS ORDERED: CATHFLO 20 MG in NACL 0.9% 500 ML 500 ML EKOSDLUMEN SCH (17:00)
[2017-05-22] MEDS ORDERED: HEPARIN/ 0.45% NACL-25,000 UNIT/500 ML 25,000 UNIT/500 ML BAG SHEATH SCH (17:00)
--- NOTE | 2017-05-22 17:00 | Post Operative Note ---
Date of procedure: 05/22/17 Pre-op diagnosis: PVD with Occluded Left Fem-Pop Bypass Graft Post-op diagnosis: same Procedure: 1. Ultrasound Guided Access Right Common Femoral Artery 2. Diagnostic Left Lower Extremity Arteriogram (Patient with a Clinical Change) 3. Angioplasty of Left Fem-Pop Bypass Graft with 4 x 200 Angiosculpt Balloon 4. Thrombolysis of Left Fem-Pop Bypass Graft with 106 x 50 cm EKOS Thrombolysis Catheter 5. Radiologic Supervision with Interpretation Anesthesia: GETA Surgeon: BRITTNEY PETERSEN Estimated blood loss: minimal Pathology: none Condition: stable Disposition: ICU
[2017-05-22] MEDS ORDERED: NACL 0.9% 1000 ML 1,000 ML ONE (17:47)
[2017-05-22] MEDS: NACL 0.9% 1000 ML 1,000 ML IV SCH (17:50)
[2017-05-22] MEDS ORDERED: MORPHINE ONE (18:20)
[2017-05-22] MEDS ORDERED: AMBIEN PO PRN (18:54)
[2017-05-22] MEDS: PERCOCET 5/325 PO PRN (20:55)
[2017-05-22] MEDS ORDERED: PERCOCET 5/325 ONE (20:55)
[2017-05-23 00:18] LABS: Basophils # (Auto) 0.1 K/mm3 (0.0-0.1); Basophils % (Auto) 0.6 % (0.0-1.8); Eosinophils # (Auto) 0.2 K/mm3 (0.0-0.4); Eosinophils % (Auto) 1.5 % (0.0-4.3); Hemoglobin 12.8 gm/dl (11.8-15.2); Lymphocytes # (Auto) 2.6 K/mm3 (1.2-5.4); Lymphocytes % (Auto) 24.6 % (13.4-35.0); Mean Corpuscular HGB Conc 33 % (32-34); Mean Corpuscular Hemoglobin 32 pg (28-32); Mean Corpuscular Volume 96 fl (84-94); Monocytes # (Auto) 0.7 K/mm3 (0.0-0.8); Monocytes % (Auto) 6.1 % (0.0-7.3); Platelet Count 185 K/mm3 (140-440); Red Blood Count 4.05 M/mm3 (3.65-5.03); Red Cell Distribution Width 16.4 % (13.2-15.2)
[2017-05-23 00:31] LABS: Heparin anti-factor XA 0.46 U.I./ml (0.3-0.7)
[2017-05-23] MEDS: LOPID PO SCH (00:45)
[2017-05-23] MEDS ORDERED: MORPHINE ONE ×3 (00:48→17:03)
[2017-05-23] MEDS: MORPHINE IV PRN ×2 (00:49→10:43)
[2017-05-23] MEDS: NACL 0.9% 1000 ML 1,000 ML IV SCH ×2 (03:16→12:30)
[2017-05-23] MEDS ORDERED: NACL 0.9% 1000 ML 1,000 ML ONE ×3 (03:16→15:58)
[2017-05-23] MEDS: PERCOCET 5/325 PO PRN (04:13)
[2017-05-23] MEDS ORDERED: PERCOCET 5/325 ONE (04:13)
[2017-05-23 04:58] LABS: Basophils % (Auto) 0.5 % (0.0-1.8); Eosinophils # (Auto) 0.2 K/mm3 (0.0-0.4); Eosinophils % (Auto) 2.8 % (0.0-4.3); Hematocrit 37.2 % (35.5-45.6); Hemoglobin 12.3 gm/dl (11.8-15.2); Lymphocytes # (Auto) 2.4 K/mm3 (1.2-5.4); Lymphocytes % (Auto) 28.4 % (13.4-35.0); Mean Corpuscular HGB Conc 33 % (32-34); Mean Corpuscular Hemoglobin 32 pg (28-32); Mean Corpuscular Volume 97 fl (84-94); Monocytes # (Auto) 0.8 K/mm3 (0.0-0.8); Monocytes % (Auto) 8.7 % (0.0-7.3); Platelet Count 169 K/mm3 (140-440); Red Blood Count 3.83 M/mm3 (3.65-5.03); Red Cell Distribution Width 16.4 % (13.2-15.2)
[2017-05-23 05:07] LABS: Heparin anti-factor XA 0.29 U.I./ml (0.3-0.7)
[2017-05-23 05:12] LABS: BUN/Creatinine Ratio 10; Blood Urea Nitrogen 9 mg/dL (9-20); Calcium 7.9 mg/dL (8.4-10.2); Hemolysis Index 3
--- NOTE | 2017-05-23 08:20 | Operative Report ---
Operative Report Operative Report: Date of Procedure: 05/22/2017 Pre-operative Diagnosis: PVD with Left Lower Extremity Rest Pain Post-operative Diagnosis: Same Procedure(s): 1. Ultrasound Guided Access Right Common Femoral Artery 2. Diagnostic Left Lower Extremity Arteriogram (Patient with a Clinical Change) 3. Angioplasty of Left Fem-Pop Bypass Graft with 4 x 200 Angiosculpt Balloon 4. Thrombolysis of Left Fem-Pop Bypass Graft with 106 x 50 cm EKOS Thrombolysis Catheter 5. Radiologic Supervision with Interpretation Surgeon: Josemanuel Deng M.D. Mobile Application Architect: Nav Anesthesia: Gen. Endotracheal Anesthesia EBL: Minimal Counts: Correct Complications: None Condition: Stable Specimen: None Indication: The patient is a 51-year-old male with a history of peripheral vascular disease and a history of a left popliteal artery aneurysm the thrombosed and was treated with a a [id number] artery bypass. He has a history of tobacco abuse and a previous failed femoropopliteal bypass. He had a redo femoropopliteal bypass and has continued to smoke which has complicated his redo femoropopliteal bypass. He has required multiple interventions to keep his redo femoropopliteal bypass pain. He presented with a filling femoropopliteal bypass and rest pain. He is in need of a diagnostic arteriogram. He was given the risks, benefits, and alternative procedures and consented to the procedure. Arteriogram Findings: The left lower extremity arteriogram demonstrated the left common iliac artery was widely patent. The left external iliac and hypogastric arteries were widely patent. The common femoral and profunda were widely patent. The proximal SFA was atretic and occluded shortly after it's origin. The femoropopliteal bypass graft was occluded shortly after it's origin with no evidence of reconstitution. After advancing a catheter wire through the bypass graft the tibial peroneal trunk as well as the peroneal and posterior tibial arteries were thrombosed. I was able to cannulate the anterior tibial artery which had approximately 80% stenosis of the proximal anterior tibial artery. The remainder the anterior tibial artery appeared to be widely patent. The thrombolysis catheter was placed with the proximal tip just proximal to the origin of the bypass graft and the distal tip just proximal to the distal anastomosis. Description of Procedure: The patient was brought to the Cap Lining Machine Operator related supine position. After general endotracheal anesthesia was achieved his right groin was prepped and draped in normal sterile fashion. Ultrasound was used to identify the right common femoral artery and confirmed patency. The overlying skin soft tissue was anesthetized with lidocaine and then a small stab incision was made. Micropuncture technique was used ultrasound guidance to enter the right common femoral artery and then a 5 [place] sheath was placed by Seldinger technique. A 0.035 [place] Advantage wire was advanced into the aorta under fluoroscopy and then a Omni Flush catheter was advanced into the aorta. The catheter and wire were advanced up and over the bifurcation and then an iliofemoral arterial was performed. The catheter wire was advanced over the bifurcation into the common femoral artery and then a 6 [place] 45 cm destination sheath was advanced into the left common femoral artery. At this point the patient was systemic heparinized. With the use of a 4 [place] Navicross catheter and a 0.018 V18 wire I was able to cannulate the occluded femoropopliteal bypass graft and advanced down into the distal anastomosis. Advanced the catheter wire into the thrombosed posterior tibial artery and confirmed thrombosis of the arteries. I then advanced a 0.014 Extra Support Choice PT wire into the posterior tibial artery and performed angioplasty of the femoropopliteal bypass graft with a 4 x 200 Angiosculpt balloon to allow the thrombolysis catheter to be advanced into the bypass graft. The result was a patent but stenotic bypass graft. I reinserted the Navicross catheter into the bypass graft and then was able to cannulate the anterior tibial artery which revealed an approximately 80% stenosis of the origin but a patent remainder of the artery. I reinserted the Advantage wire and then advanced the 106 x 50 EKOS Thrombolysis catheter with the proximal tip proximal to the origin of the bypass graft and the distal tip just proximal to the distal anastomosis. I secured the sheath and catheter in place using the 0 silk stitch. I primed the coolant port and the sheath using the appropriate amount of heparin. I primed the drug port with the appropriate amount of TPA. The catheter and sheath were then dressed sterilely. The patient tolerated the procedure well. All sponge, needle, and instrument counts were correct. The patient was taken to the recovery area in stable condition.
--- NOTE | 2017-05-23 11:34 | Progress Note ---
Assessment and Plan Assessment and plan: Left lower extremity arterial insufficiency/PVD - Patient is status post angioplasty and thrombolysis of left femoropopliteal bypass graft. Patient was apparently for redo/arteriogram of that procedure this morning. -Continue management per vascular surgery - Continue Plavix and eliquis - Continue home medications Hyperlipidemia - Continue gemfibrozil DVT prophylaxis -Patient is on eliquis Disposition - Inpatient management History Interval history: No new issues overnight. Hospitalist Physical - Constitutional Vitals: Temp Pulse Resp BP Pulse Ox 98.1 F 76 12 108/60 92 05/23/17 06:00 05/23/17 11:00 05/23/17 11:00 05/23/17 11:00 05/23/17 11:00 General appearance: Present: no acute distress, well-nourished - EENT Eyes: Present: PERRL, EOM intact ENT: hearing intact, clear oral mucosa, dentition normal - Neck Neck: Present: supple, normal ROM - Respiratory Respiratory effort: normal Respiratory: bilateral: CTA - Cardiovascular Rhythm: regular Heart Sounds: Present: S1 & S2. Absent: gallop, rub - Extremities Extremities: no ischemia, No edema, Full ROM - Abdominal General gastrointestinal: soft, non-tender, non-distended, normal bowel sounds - Integumentary Integumentary: Present: clear, warm, dry - Neurologic Neurologic: CNII-XII intact, moves all extremities Results - Labs CBC & Chem 7: 05/23/17 03:00 05/23/17 04:00 Labs: Laboratory Last Values WBC 8.6 K/mm3 (4.5-11.0) 05/23/17 03:00 RBC 3.83 M/mm3 (3.65-5.03) 05/23/17 03:00 Hgb 12.3 gm/dl (11.8-15.2) 05/23/17 03:00 Hct 37.2 % (35.5-45.6) 05/23/17 03:00 MCV 97 fl (84-94) H 05/23/17 03:00 MCH 32 pg (28-32) 05/23/17 03:00 MCHC 33 % (32-34) 05/23/17 03:00 RDW 16.4 % (13.2-15.2) H 05/23/17 03:00 Plt Count 169 K/mm3 (140-440) 05/23/17 03:00 Lymph % (Auto) 28.4 % (13.4-35.0) 05/23/17 03:00 [place] % (Auto) 8.7 % (0.0-7.3) H 05/23/17 03:00 Eos % (Auto) 2.8 % (0.0-4.3) 05/23/17 03:00 Baso % (Auto) 0.5 % (0.0-1.8) 05/23/17 03:00 Lymph # 2.4 K/mm3 (1.2-5.4) 05/23/17 03:00 [place] # 0.8 K/mm3 (0.0-0.8) 05/23/17 03:00 Eos # 0.2 K/mm3 (0.0-0.4) 05/23/17 03:00 Baso # 0.0 K/mm3 (0.0-0.1) 05/23/17 03:00 Seg Neutrophils % 59.6 % (40.0-70.0) 05/23/17 03:00 Seg Neutrophils # 5.1 K/mm3 (1.8-7.7) 05/23/17 03:00 PT 15.3 Sec. (12.2-14.9) H 05/22/17 16:00 INR 1.15 (0.87-1.13) H 05/22/17 16:00 APTT 44.1 Sec. (24.2-36.6) H 05/22/17 16:00 Fibrinogen 330 mg/dl (211-480) 05/23/17 03:00 Heparin Anti-Xa Level 0.29 U.I./ml (0.3-0.7) L 05/23/17 03:00 Sodium 140 mmol/L (137-145) 05/23/17 04:00 Potassium 3.9 mmol/L (3.6-5.0) 05/23/17 04:00 Chloride 103.8 mmol/L (98-107) 05/23/17 04:00 Carbon Dioxide 23 mmol/L (22-30) 05/23/17 04:00 Anion Gap 17 mmol/L 05/23/17 04:00 BUN 9 mg/dL (9-20) 05/23/17 04:00 Creatinine 0.9 mg/dL (0.8-1.5) 05/23/17 04:00 Estimated GFR > 60 ml/min 05/23/17 04:00 BUN/Creatinine Ratio 10 % 05/23/17 04:00 Glucose 90 mg/dL (75-100) 05/23/17 04:00 Lactic Acid 1.60 mmol/L (0.7-2.0) 05/19/17 15:00 Calcium 7.9 mg/dL (8.4-10.2) L 05/23/17 04:00 Total Creatine Kinase 90 units/L (55-170) 05/19/17 15:08 CK-MB (CK-2) 2.0 ng/mL (0.0-4.0) 05/19/17 15:08 Troponin T < 0.010 ng/mL (0.00-0.029) 05/19/17 15:08 Blood Type A POSITIVE 05/19/17 15:08 Antibody Screen Negative 05/19/17 15:08
[2017-05-23] MEDS ORDERED: DILAUDID ONE ×2 (14:12→17:49)
[2017-05-23] MEDS ORDERED: XYLOCAINE MPF 2% ONE (14:13)
[2017-05-23] MEDS ORDERED: DIPRIVAN 10 MG/ML IV ONE (14:13)
[2017-05-23] MEDS ORDERED: XYLOCAINE 2% INFILTRATI ONE (14:20)
[2017-05-23] MEDS ORDERED: HEPARIN/NS 5000 UNIT/500ML(CATH LAB) 1,000 ML IR ONE (14:20)
[2017-05-23] MEDS ORDERED: ANCEF/STERILE WATER 2 GM/20 ML 2 GM/20 ML SYRINGE IV ONE (14:21)
[2017-05-23] MEDS: HEPARIN 10,000 UNITS/10 ML ONE ×3 (14:47→16:13)
[2017-05-23] MEDS ORDERED: NITROGLYCERIN SYRINGE 6 ML ONE (15:05)
[2017-05-23] MEDS ORDERED: NORCO 5/325 ONE (17:04)
[2017-05-23] MEDS ORDERED: NORCO 5/325 PO ONE (17:10)
[2017-05-23] MEDS ORDERED: MORPHINE IV ONE (17:10)
--- NOTE | 2017-05-23 17:19 | Operative Report ---
Operative Report Operative Report: EXAM: THROMBOLYTICS CATHETER REMOVAL, LEFT LOWER EXTREMITY REVASCULARIZATION CLINICAL INDICATION: PATIENT WITH A HISTORY OF A LEFT FEMORAL TO TIBIOPERONEAL TRUNK BYPASS WHICH IS THROMBOSED. PVD WITH REST PAIN DATE: 05/23/2017 PROCEDURE: Following an expiration of the risks, benefits and alternatives; written informed consent was obtained. The patient was brought to the angiographic suite and placed in supine position on the examination table. Initial evaluation of his groin demonstrated a small hematoma at the sheath insertion site. Initial fluoroscopic images demonstrated appropriate positioning of the previously placed thrombolytics catheter. The patient's left groin was prepped and draped in the usual sterile fashion. 1% lidocaine was used for anesthesia at this sheath insertion site. The infusion wire was removed under fluoroscopy. A 0.035 guidewire was advanced through the thrombolytics sheath and the sheath removed. Angiography was then performed which demonstrated only minimal channel throughout the bypass graft. No flows identified into the tibials. 4 Thai vertebral catheter was advanced over the guidewire and the 035 guidewire exchanged for a V 18 wire. Contrast was injected through the vertebral catheter just distal to the anastomosis. A this demonstrates a lumen within the anterior tibial artery however, there is and 90% stenosis about 3 cm distal to the origin. No flows identified within the posterior tibial artery. The posterior tibial artery was then cannulated with the V 18 guidewire and vertebral catheter. The vertebral catheter was exchanged for an 018 Strat[place] Blazer catheter and together the catheter and guidewire were advanced to the foot into the lateral plantar artery. Angioplasty of the posterior tibial artery was then performed distally using a 2.0/2.5 x 200 balloon. Angioplasty of the posterior tibial artery proximally was performed using a 3.0 x 120 mm balloon. Post angioplasty imaging demonstrated a lumen however, this channel did not remain patent for a long secondary to spasm. Attention was then turned towards the anterior tibial artery. The anterior tibial artery was cannulated with the V 18 guidewire vertebral catheter which was again exchanged for the 018 Stratford Blazer catheter. Contrast was injected through the anterior tibial artery which demonstrated brisk flow proximally with collateral flow distally. Again noted was a 90% stenosis. A decision was made to treat this lesion and a 3.5 mm x 38 mm drug-eluting stent was deployed across the lesion and seated. Post stent placement imaging demonstrated reduction of the stenosis to less than 10%. Imaging was then obtained for proximal to the anastomosis and multifocal stenoses were identified proximal to at the anastomosis and just distal to the anastomosis. These were treated with a angioscope balloon in an attempt to break the stenoses. Angioplasty of the entire bypass graft was then performed using a 5 mm x 250 mm balloon. Angioplasty of the proximal end of the graft was performed using a 6 mm balloon. Post venoplasty imaging of the bypass graft demonstrated luminal gain however, there is sluggish flow secondary to poor distal outflow. Additionally, within the mid to distal portion of the bypass graft, there is some irregularity suggesting vessel transection. This was treated using a 6 mm x 250 mm Viabahn stent which was then seated using a 5 mm balloon. Attention was then directed towards the stenosis within the distal bypass graft , at the anastomosis and just distal to the anastomosis. Multiple attempts to reduce the stenosis with sculpting balloons were unsuccessful a decision was made to place coronary strengths across these lesions. A 3.5 mm coronary stent was deployed distally with 24.0 mm coronary stents deployed proximally however the lesions. The stents were seated using there balloons. Post stent placement imaging demonstrated brisk flow throughout the bypass graft into the anterior tibial artery. Extensive collaterals are also identified distally. The patient tolerated the procedure well. There were no immediate post procedure palpitations. Patient was provided by anesthesia services is a patient will not tolerate moderate sedation. Continuous cardiopulmonary monitoring was utilized. IMPRESSION: 1) Occluded left femoropopliteal bypass graft with multifocal stenoses within the origin as well as in the distal bypass graft. Additionally , stenosis is present within the proximal anterior tibial artery. 2) Revascularization of the femoral-popliteal bypass graft with angioplasty and stent. 3) Revascularization of the anterior tibial artery and distal bypass graft using angioplasty and stent placement.
[2017-05-23] MEDS ORDERED: NARCAN 0.4 MG/1 ML IV PRN (17:24)
[2017-05-23] MEDS ORDERED: ZOFRAN ONE (17:49)
[2017-05-23] MEDS ORDERED: NITRO-BID 2% TP ONE (18:00)
[2017-05-23] MEDS ORDERED: DILAUDID IV ONE (18:53)
[2017-05-23] MEDS: DILAUDID PCA 6MG/30ML IV SCH (18:55)
[2017-05-24] MEDS: DILAUDID PCA 6MG/30ML IV SCH ×2 (05:23→18:29)
[2017-05-24 05:39] LABS: BUN/Creatinine Ratio 9; Blood Urea Nitrogen 7 mg/dL (9-20); Calcium 8.4 mg/dL (8.4-10.2); Hemolysis Index 20
--- NOTE | 2017-05-24 08:29 | Progress Note ---
Assessment and Plan Assessment and plan: Left lower extremity arterial insufficiency - s/p Lt femoropopliteal by pass severe pain in the calf - There is a suspicion of compartment syndrome and Vascular surgery aware and will do faciotomy if worsened - Advised to elevate the leg - NPO after mid-night Hyperlipidemia - Continue gemfibrozil DVT prophylaxis -Patient is on eliquis Disposition - continue inpatient care - Follow vascular recommendations History Interval history: Patient was seen and evaluated this morning, he is complaining severe left calf pain. said 04/16. Hospitalist Physical - Physical exam Narrative exam: Not in cardiopulmonary distress. The patient appeared well nourished and normally developed. Vital signs as documented. Head exam is unremarkable. No scleral icterus . Neck is without jugular venous distension, thyromegaly, or carotid bruits. Lungs are clear to auscultation. Cardiac exam reveals regular rate and Rhythm. First and second heart sounds normal. No murmurs, rubs or gallops. Abdominal exam reveals normal bowel sounds, no masses, no organomegaly and no aortic enlargement. Extremities cyanosis left first toes, but better than the admission condition, tenderness in the calf, anterior side. 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 No focal weakness. - Constitutional Vitals: Temp Pulse Resp BP Pulse Ox 98.3 F 78 18 94/46 92 05/23/17 23:19 05/23/17 23:19 05/23/17 23:19 05/23/17 23:19 05/23/17 23:19 General appearance: Present: no acute distress, well-nourished Results - Labs CBC & Chem 7: 05/23/17 03:00 05/24/17 04:15 Labs: Laboratory Last Values WBC 8.6 K/mm3 (4.5-11.0) 05/23/17 03:00 RBC 3.83 M/mm3 (3.65-5.03) 05/23/17 03:00 Hgb 12.3 gm/dl (11.8-15.2) 05/23/17 03:00 Hct 37.2 % (35.5-45.6) 05/23/17 03:00 MCV 97 fl (84-94) H 05/23/17 03:00 MCH 32 pg (28-32) 05/23/17 03:00 MCHC 33 % (32-34) 05/23/17 03:00 RDW 16.4 % (13.2-15.2) H 05/23/17 03:00 Plt Count 169 K/mm3 (140-440) 05/23/17 03:00 Lymph % (Auto) 28.4 % (13.4-35.0) 05/23/17 03:00 [place] % (Auto) 8.7 % (0.0-7.3) H 05/23/17 03:00 Eos % (Auto) 2.8 % (0.0-4.3) 05/23/17 03:00 Baso % (Auto) 0.5 % (0.0-1.8) 05/23/17 03:00 Lymph # 2.4 K/mm3 (1.2-5.4) 05/23/17 03:00 [place] # 0.8 K/mm3 (0.0-0.8) 05/23/17 03:00 Eos # 0.2 K/mm3 (0.0-0.4) 05/23/17 03:00 Baso # 0.0 K/mm3 (0.0-0.1) 05/23/17 03:00 Seg Neutrophils % 59.6 % (40.0-70.0) 05/23/17 03:00 Seg Neutrophils # 5.1 K/mm3 (1.8-7.7) 05/23/17 03:00 PT 15.3 Sec. (12.2-14.9) H 05/22/17 16:00 INR 1.15 (0.87-1.13) H 05/22/17 16:00 APTT 44.1 Sec. (24.2-36.6) H 05/22/17 16:00 Fibrinogen 330 mg/dl (211-480) 05/23/17 03:00 Heparin Anti-Xa Level 0.29 U.I./ml (0.3-0.7) L 05/23/17 03:00 Sodium 139 mmol/L (137-145) 05/24/17 04:15 Potassium 4.5 mmol/L (3.6-5.0) 05/24/17 04:15 Chloride 102.7 mmol/L (98-107) 05/24/17 04:15 Carbon Dioxide 23 mmol/L (22-30) 05/24/17 04:15 Anion Gap 18 mmol/L 05/24/17 04:15 BUN 7 mg/dL (9-20) L 05/24/17 04:15 Creatinine 0.8 mg/dL (0.8-1.5) 05/24/17 04:15 Estimated GFR > 60 ml/min 05/24/17 04:15 BUN/Creatinine Ratio 9 % 05/24/17 04:15 Glucose 105 mg/dL (75-100) H 05/24/17 04:15 Lactic Acid 1.60 mmol/L (0.7-2.0) 05/19/17 15:00 Calcium 8.4 mg/dL (8.4-10.2) 05/24/17 04:15 Total Creatine Kinase 90 units/L (55-170) 05/19/17 15:08 CK-MB (CK-2) 2.0 ng/mL (0.0-4.0) 05/19/17 15:08 Troponin T < 0.010 ng/mL (0.00-0.029) 05/19/17 15:08 Blood Type A POSITIVE 05/19/17 15:08 Antibody Screen Negative 05/19/17 15:08
[2017-05-24] MEDS: PLAVIX PO SCH ×2 (09:52→19:37)
[2017-05-24] MEDS: LOPID PO SCH ×3 (09:53→21:56)
--- NOTE | 2017-05-24 10:06 | Progress Note ---
Assessment and Plan The patient's left lower extremity is well-perfused however he has significant tenderness in the left calf and his anterior compartment is tense suggestive of a possible compartment syndrome. I have suggested that the patient ambulate and when not ambulating he should elevate the left leg is much as possible. I will make him nothing by mouth after midnight and reevaluate in the morning. If he continues to have a significant amount of tenderness in the calf remains as tense as it is today he will likely require an anterior compartment fasciotomy. The patient expressed understanding and agrees with plan. Subjective Date of service: 05/24/17 Interval history: The patient complains of severe soreness in his left calf and ankle. He has no other complaints at this time. Objective - Constitutional Vitals: Vital Signs - 12hr 05/23/17 05/24/17 23:19 07:28 Temperature 98.3 F 99.0 F Pulse Rate 78 86 Respiratory 18 18 Rate Blood Pressure 94/46 97/37 O2 Sat by Pulse 92 90 Oximetry General appearance: Present: no acute distress - Respiratory Respiratory effort: normal - Cardiovascular Rhythm: regular Extremities: normal temperature (left foot is warm and well perfused) Extremity abnormal: cyanosis (cyanosis to the left first toe however improved from prior to the procedure), tenderness (the patient has significant left calf tenderness especially in the anterior calf near the anterior compartment. The anterior compartment feels tense suggestive of a compartment syndrome), other ( right groin without evidence of hematoma) - Gastrointestinal General gastrointestinal: Present: soft, non-tender - Labs CBC & Chem 7: 05/23/17 03:00 05/24/17 04:15 Labs: Abnormal lab results 05/24/17 Range/Units 04:15 BUN 7 L (9-20) mg/dL Glucose 105 H (75-100) mg/dL
[2017-05-25 07:15] LABS: BUN/Creatinine Ratio 10; Blood Urea Nitrogen 7 mg/dL (9-20); Calcium 8.7 mg/dL (8.4-10.2); Hemolysis Index 6
--- NOTE | 2017-05-25 08:15 | Progress Note ---
Assessment and Plan Assessment and plan: Left lower extremity arterial insufficiency - s/p Lt femoropopliteal by pass severe pain in the calf due to compartment syndrome - Fasciotomy was done and pain is getting better. - there was some necrotic tissue and biopsy was sent Hyperlipidemia - Continue gemfibrozil DVT prophylaxis -Patient is on eliquis Disposition - continue inpatient care - Follow vascular recommendations History Interval history: Patient was seen and evaluated this morning, he is complaining severe left calf pain. said 04/16. Hospitalist Physical - Physical exam Narrative exam: Not in cardiopulmonary distress. The patient appeared well nourished and normally developed. Vital signs as documented. Head exam is unremarkable. No scleral icterus . Neck is without jugular venous distension, thyromegaly, or carotid bruits. Lungs are clear to auscultation. Cardiac exam reveals regular rate and Rhythm. First and second heart sounds normal. No murmurs, rubs or gallops. Abdominal exam reveals normal bowel sounds, no masses, no organomegaly and no aortic enlargement. Extremities cyanosis left first toes, but better than the admission condition, tenderness in the calf, anterior side. 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 - Constitutional Vitals: Temp Pulse Resp BP Pulse Ox 99.1 F 82 18 126/68 99 05/25/17 04:35 05/25/17 04:41 05/25/17 04:35 05/25/17 04:35 05/25/17 04:41 General appearance: Present: no acute distress, well-nourished Results - Labs CBC & Chem 7: 05/23/17 03:00 05/25/17 04:33 Labs: Laboratory Last Values WBC 8.6 K/mm3 (4.5-11.0) 05/23/17 03:00 RBC 3.83 M/mm3 (3.65-5.03) 05/23/17 03:00 Hgb 12.3 gm/dl (11.8-15.2) 05/23/17 03:00 Hct 37.2 % (35.5-45.6) 05/23/17 03:00 MCV 97 fl (84-94) H 05/23/17 03:00 MCH 32 pg (28-32) 05/23/17 03:00 MCHC 33 % (32-34) 05/23/17 03:00 RDW 16.4 % (13.2-15.2) H 05/23/17 03:00 Plt Count 169 K/mm3 (140-440) 05/23/17 03:00 Lymph % (Auto) 28.4 % (13.4-35.0) 05/23/17 03:00 [place] % (Auto) 8.7 % (0.0-7.3) H 05/23/17 03:00 Eos % (Auto) 2.8 % (0.0-4.3) 05/23/17 03:00 Baso % (Auto) 0.5 % (0.0-1.8) 05/23/17 03:00 Lymph # 2.4 K/mm3 (1.2-5.4) 05/23/17 03:00 [place] # 0.8 K/mm3 (0.0-0.8) 05/23/17 03:00 Eos # 0.2 K/mm3 (0.0-0.4) 05/23/17 03:00 Baso # 0.0 K/mm3 (0.0-0.1) 05/23/17 03:00 Seg Neutrophils % 59.6 % (40.0-70.0) 05/23/17 03:00 Seg Neutrophils # 5.1 K/mm3 (1.8-7.7) 05/23/17 03:00 PT 15.3 Sec. (12.2-14.9) H 05/22/17 16:00 INR 1.15 (0.87-1.13) H 05/22/17 16:00 APTT 44.1 Sec. (24.2-36.6) H 05/22/17 16:00 Fibrinogen 330 mg/dl (211-480) 05/23/17 03:00 Heparin Anti-Xa Level 0.29 U.I./ml (0.3-0.7) L 05/23/17 03:00 Sodium 144 mmol/L (137-145) 05/25/17 04:33 Potassium 4.4 mmol/L (3.6-5.0) 05/25/17 04:33 Chloride 104.6 mmol/L (98-107) 05/25/17 04:33 Carbon Dioxide 25 mmol/L (22-30) 05/25/17 04:33 Anion Gap 19 mmol/L 05/25/17 04:33 BUN 7 mg/dL (9-20) L 05/25/17 04:33 Creatinine 0.7 mg/dL (0.8-1.5) L 05/25/17 04:33 Estimated GFR > 60 ml/min 05/25/17 04:33 BUN/Creatinine Ratio 10 % 05/25/17 04:33 Glucose 104 mg/dL (75-100) H 05/25/17 04:33 Lactic Acid 1.60 mmol/L (0.7-2.0) 05/19/17 15:00 Calcium 8.7 mg/dL (8.4-10.2) 05/25/17 04:33 Total Creatine Kinase 90 units/L (55-170) 05/19/17 15:08 CK-MB (CK-2) 2.0 ng/mL (0.0-4.0) 05/19/17 15:08 Troponin T < 0.010 ng/mL (0.00-0.029) 05/19/17 15:08 Blood Type A POSITIVE 05/19/17 15:08 Antibody Screen Negative 05/19/17 15:08
[2017-05-25] MEDS ORDERED: DIPRIVAN 10 MG/ML IV ONE (08:17)
[2017-05-25] MEDS ORDERED: DILAUDID ONE (08:18)
[2017-05-25] MEDS ORDERED: XYLOCAINE MPF 2% ONE (08:18)
--- NOTE | 2017-05-25 08:30 | Anesthesia Consultation ---
Anesthesia Consult and Med Hx Date of service: 05/25/17 - Airway Anesthetic Teeth Evaluation: Poor (05/25/17) ROM Head & Neck: Adequate Mental/Hyoid Distance: Adequate Mallampati Class: Class II Intubation Access Assessment: Probably Good - Pre-Operative Health Status ASA Pre-Surgery Classification: ASA3 - Pulmonary Hx Smoking: Yes Hx Asthma: No Hx Respiratory Symptoms: No COPD: No Hx Pneumonia: No - Cardiovascular System Hx Hypertension: Yes Hx Heart Murmur: No (pt has compartment syndrome 05/25/17) Hx Peripheral Vascular Disease: Yes (s/p reconstructive surgeries both LEs) - Central Nervous System Hx Psychiatric Problems: No - Gastrointestinal Hx Gastroesophageal Reflux Disease: No - Endocrine Hx End Stage Renal Disease: No - Other Systems Hx Alcohol Use: Yes (occas) Hx Substance Use: No Hx Cancer: No
--- NOTE | 2017-05-25 08:31 | Anesthesia Day of Surgery ---
Anesthesia Day of Surgery - Day of Surgery Patient Examined: Yes Patient H&P Reviewed: Yes Patient is NPO: Yes
[2017-05-25] MEDS ORDERED: PEPCID IV ONE (08:38)
--- NOTE | 2017-05-25 08:38 | Event Note ---
Date: 05/25/17 Patient evaluated this morning and foot well perfused however continues to have a tense anterior compartment with significant tenderness. Will proceed with anterior compartment fasciotomy. Patient given risk, benefits, and alternative procedures and has consented to the procedure.
[2017-05-25] MEDS: NACL 0.9% 1000 ML 1,000 ML IV SCH ×2 (08:40→13:52)
[2017-05-25] MEDS ORDERED: PEPCID IV NR (09:00)
[2017-05-25] MEDS ORDERED: NACL 0.9% 1000 ML 1,000 ML IV SCH (09:00)
[2017-05-25] MEDS ORDERED: ANCEF ONE (09:21)
[2017-05-25] MEDS ORDERED: ZOFRAN IV PRN (09:29)
[2017-05-25] MEDS ORDERED: NEO SYNEPHRINE/NS Syringe(OR USE) IV ONE (09:39)
[2017-05-25] MEDS ORDERED: LACTATED RINGERS 1,000 ML IV SCH (10:00)
--- NOTE | 2017-05-25 10:10 | Operative Report ---
Operative Report Operative Report: Date of Procedure: 05/25/2017 Pre-operative Diagnosis: Left Leg Anterior and Lateral Compartment Syndrome Post-operative Diagnosis: Pain Procedure(s): 1. Left Leg Anterior and Lateral Compartment Fasciotomies 2. Excisional Debridement of Necrotic Muscle of the Left Anterior Lateral Compartments Surgeon: Josemanuel Deng M.D. Geospatial Engineer: None Anesthesia: Gen. Endotracheal Anesthesia EBL: Minimal Counts: Correct Complications: None Condition: Stable Findings: Muscle and the anterior compartment was significant bulging. Majority of the muscle healthy and viable however there was some necrotic muscle within the anterior and lateral compartments which was and necrotic. Specimen: Necrotic muscle from anterior lateral compartment sent to pathology. Indication: The patient is a 51-year-old male with a history of peripheral vascular disease with status post revascularization who developed compartment syndrome and is in need of fasciotomy. He was given the risks, benefits, and alternative procedures and consented to the procedure. Description of Procedure: The patient prone to the operating room and laid in supine position. After general endotracheal anesthesia was achieved his left leg was prepped and draped in normal sterile fashion. A longitudinal incision was made on the lateral aspect of the calf and carried down to the fascia using the cautery. Hemostasis was achieved on the skin edges using laser cautery. A small joseph was made on the fascia of the anterior and lateral compartments using cautery and then the long Crook's were used to excise the anterior compartment fascia both proximally and distally and then the lateral compartment fascia both prostate and distally. Hemostasis was achieved with a combination of both direct pressure and cautery. Upon opening the anterior compartment there was significant bulging of the muscle. Evaluation of the muscle and anterior compartment revealed that the majority of the muscle was healthy and viable however there was some some muscle that was necrotic. This muscle was sharply debrided using the curved Mayos. Hemostasis was achieved with cautery. The majority of the muscle within the lateral compartment also was viable however there was some necrotic superficial muscle which was debrided with the curved Mayos and hemostasis within the compartment was achieved with cautery. Once hemostasis was achieved skin flaps were created along the deep dermal layer to release tension and allowed closure of the skin. The wound was then copiously irrigated and the skin was able to be closed using 2-0 Ethilon in interrupted vertical mattress fashion. The wound was then dressed with Xeroform gauze, fluffs, a loosely wrapped Kerlix roll, and an Feliciano bandage. The patient tolerated the procedure well. All sponge, needle, and management counts were correct. The patient was taken to the recovery area in stable condition.
[2017-05-25] MEDS: DILAUDID IV PRN ×3 (10:30→10:50)
--- NOTE | 2017-05-25 10:43 | Post Anesthesia Evaluation ---
- Post Anesthesia Evaluation Patient Participated: Yes Airway Patent: Yes Stable Respiratory Function: Yes Nausea/Vomiting: No Temp > 96.8F: Yes Pain Manageable: Yes Adequeate Hydration: Yes Anesthesia Complications: No Block Receding Appropriately: Not Applicable Patient on Ventilator: No
[2017-05-25] MEDS ORDERED: LOVENOX SUB-Q SCH (11:00)
[2017-05-25] MEDS: ELIQUIS PO SCH ×2 (11:33→21:58)
[2017-05-25] MEDS ORDERED: LOVENOX SUB-Q NR (12:00)
[2017-05-25] MEDS: DILAUDID PCA 6MG/30ML IV SCH (12:01)
[2017-05-25] MEDS ORDERED: ELIQUIS PO SCH (12:17)
[2017-05-25] MEDS: LOPID PO SCH ×3 (13:52→21:58)
[2017-05-25] MEDS: BABY ASPIRIN PO SCH (13:52)
[2017-05-25] MEDS: PLAVIX PO SCH (13:53)
[2017-05-25] MEDS ORDERED: DILAUDID IV ONE (21:31)
[2017-05-26] MEDS: DILAUDID IV PRN ×4 (03:12→16:12)
--- NOTE | 2017-05-26 10:20 | Progress Note ---
Assessment and Plan Patient's left lower extremities well-perfused and he has a palpable left dorsalis pedis pulse. He has a slight left foot drop however his pain and sensation is significantly improved status post fasciotomy. We'll convert to oral narcotics for pain control. Have encouraged patient to ambulate. If he tolerates ambulation and pain is well tolerated with oral narcotics, we'll be able to discharge home from a surgical standpoint. Subjective Date of service: 05/26/17 Interval history: The patient states his left leg feels much better status post fasciotomy. He has not ambulated yet. He has no complaints at this time. Objective - Constitutional Vitals: Vital Signs - 12hr 05/25/17 05/26/17 05/26/17 23:31 03:12 07:13 Temperature 100.3 F H 99.8 F H Pulse Rate 89 95 H Respiratory 18 20 16 Rate Blood Pressure 93/46 114/60 O2 Sat by Pulse 92 91 Oximetry 05/26/17 09:22 Temperature Pulse Rate Respiratory Rate Blood Pressure O2 Sat by Pulse 97 Oximetry General appearance: Present: no acute distress - Respiratory Respiratory effort: normal - Breasts Breasts: deferred - Cardiovascular Rhythm: regular Extremities: pulses intact (palpable left dorsalis pedis artery), normal temperature, abnormal (right groin without evidence of hematoma) Extremity abnormal: edema (reperfusion edema of the left foot), other (slight left foot drop) - Gastrointestinal General gastrointestinal: Present: soft, non-tender - Labs CBC & Chem 7: 05/23/17 03:00 05/25/17 04:33
[2017-05-26] MEDS: PLAVIX PO SCH (10:22)
[2017-05-26] MEDS: LOPID PO SCH ×2 (10:22→21:26)
[2017-05-26] MEDS: ELIQUIS PO SCH ×2 (10:22→21:26)
[2017-05-26] MEDS: BABY ASPIRIN PO SCH (10:22)
--- NOTE | 2017-05-26 15:46 | Progress Note ---
Assessment and Plan Assessment and plan: Left lower extremity arterial insufficiency - s/p Lt femoropopliteal by pass severe pain in the calf due to compartment syndrome - Fasciotomy was done and pain is getting better. - there was some necrotic tissue and biopsy was sent Hyperlipidemia - Continue gemfibrozil DVT prophylaxis -Patient is on eliquis Disposition - continue inpatient care - Possible discharge tomorrow History Interval history: Patient was seen and evaluated this morning, complains pain 4/10. Hospitalist Physical - Physical exam Narrative exam: Not in cardiopulmonary distress. The patient appeared well nourished and normally developed. Vital signs as documented. Head exam is unremarkable. No scleral icterus . Neck is without jugular venous distension, thyromegaly, or carotid bruits. Lungs are clear to auscultation. Cardiac exam reveals regular rate and Rhythm. First and second heart sounds normal. No murmurs, rubs or gallops. Abdominal exam reveals normal bowel sounds, no masses, no organomegaly and no aortic enlargement. Extremities cyanosis left first toes, but better than the admission condition, tenderness in the calf, anterior side. 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 - Constitutional Vitals: Temp Pulse Resp BP Pulse Ox 99.1 F 86 18 119/60 95 05/26/17 15:13 05/26/17 15:13 05/26/17 15:13 05/26/17 15:13 05/26/17 15:19 General appearance: Present: no acute distress Results - Labs CBC & Chem 7: 05/23/17 03:00 05/25/17 04:33 Labs: Laboratory Last Values WBC 8.6 K/mm3 (4.5-11.0) 05/23/17 03:00 RBC 3.83 M/mm3 (3.65-5.03) 05/23/17 03:00 Hgb 12.3 gm/dl (11.8-15.2) 05/23/17 03:00 Hct 37.2 % (35.5-45.6) 05/23/17 03:00 MCV 97 fl (84-94) H 05/23/17 03:00 MCH 32 pg (28-32) 05/23/17 03:00 MCHC 33 % (32-34) 05/23/17 03:00 RDW 16.4 % (13.2-15.2) H 05/23/17 03:00 Plt Count 169 K/mm3 (140-440) 05/23/17 03:00 Lymph % (Auto) 28.4 % (13.4-35.0) 05/23/17 03:00 [place] % (Auto) 8.7 % (0.0-7.3) H 05/23/17 03:00 Eos % (Auto) 2.8 % (0.0-4.3) 05/23/17 03:00 Baso % (Auto) 0.5 % (0.0-1.8) 05/23/17 03:00 Lymph # 2.4 K/mm3 (1.2-5.4) 05/23/17 03:00 [place] # 0.8 K/mm3 (0.0-0.8) 05/23/17 03:00 Eos # 0.2 K/mm3 (0.0-0.4) 05/23/17 03:00 Baso # 0.0 K/mm3 (0.0-0.1) 05/23/17 03:00 Seg Neutrophils % 59.6 % (40.0-70.0) 05/23/17 03:00 Seg Neutrophils # 5.1 K/mm3 (1.8-7.7) 05/23/17 03:00 PT 15.3 Sec. (12.2-14.9) H 05/22/17 16:00 INR 1.15 (0.87-1.13) H 05/22/17 16:00 APTT 44.1 Sec. (24.2-36.6) H 05/22/17 16:00 Fibrinogen 330 mg/dl (211-480) 05/23/17 03:00 Heparin Anti-Xa Level 0.29 U.I./ml (0.3-0.7) L 05/23/17 03:00 Sodium 144 mmol/L (137-145) 05/25/17 04:33 Potassium 4.4 mmol/L (3.6-5.0) 05/25/17 04:33 Chloride 104.6 mmol/L (98-107) 05/25/17 04:33 Carbon Dioxide 25 mmol/L (22-30) 05/25/17 04:33 Anion Gap 19 mmol/L 05/25/17 04:33 BUN 7 mg/dL (9-20) L 05/25/17 04:33 Creatinine 0.7 mg/dL (0.8-1.5) L 05/25/17 04:33 Estimated GFR > 60 ml/min 05/25/17 04:33 BUN/Creatinine Ratio 10 % 05/25/17 04:33 Glucose 104 mg/dL (75-100) H 05/25/17 04:33 Lactic Acid 1.60 mmol/L (0.7-2.0) 05/19/17 15:00 Calcium 8.7 mg/dL (8.4-10.2) 05/25/17 04:33 Total Creatine Kinase 90 units/L (55-170) 05/19/17 15:08 CK-MB (CK-2) 2.0 ng/mL (0.0-4.0) 05/19/17 15:08 Troponin T < 0.010 ng/mL (0.00-0.029) 05/19/17 15:08 Blood Type A POSITIVE 05/19/17 15:08 Antibody Screen Negative 05/19/17 15:08
[2017-05-26] MEDS: PERCOCET 5/325 PO PRN (23:27)
[2017-05-27 08:06] VITALS: BP 105/54
[2017-05-27] MEDS: ELIQUIS PO SCH (09:48)
[2017-05-27] MEDS: BABY ASPIRIN PO SCH (09:48)
[2017-05-27] MEDS: LOPID PO SCH (09:48)
[2017-05-27] MEDS: PLAVIX PO SCH (09:48)
[2017-05-27] MEDS: PERCOCET 5/325 PO PRN ×2 (09:54→15:41)
--- NOTE | 2017-05-27 11:16 | Discharge Summary ---
Providers - Providers Date of Admission: 05/19/17 22:14 Date of discharge: 05/27/17 Attending physician: HUI MATHIS MD 05/19/17 23:48 Consult to Physician [CONS] Routine Consulting Provider: CHACHA HOOD Reason For Exam: vascular insufficiency Place consult to:: Vascular surgery Notified:: DR. 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 The patient appeared well nourished and normally developed. Vital signs as documented. Head exam is unremarkable. No scleral icterus . Neck is without jugular venous distension, thyromegaly, or carotid bruits. Lungs are clear to auscultation. Cardiac exam reveals regular rate and Rhythm. First and second heart sounds normal. No murmurs, rubs or gallops. Abdominal exam reveals normal bowel sounds, no masses, no organomegaly and no aortic enlargement. Extremities cyanosis left first toes, but better than the admission condition, tenderness in the calf, anterior side. [employer]: Alert and oriented 3. No focal weakness. - Constitutional Vitals: Temp Pulse Resp BP Pulse Ox 98.6 F 84 20 105/54 95 05/27/17 07:28 05/27/17 07:28 05/27/17 07:28 05/27/17 07:28 05/27/17 10:00 Plan Activity: advance as tolerated Weight Bearing Status: Weight Bear as Tolerated Diet: low cholesterol Follow up with: [facility] [Other] - 3-5 Days Prescriptions: Oxycodone HCl/Acetaminophen [Percocet 10/325 mg] 1 each PO Q6HR PRN #15 tablet PRN Reason: Pain
--- NOTE | 2017-05-27 12:31 | Progress Note ---
Assessment and Plan Patient is doing well status post revascularization of the left lower extremity. Will be discharged with a rolling walker. Should follow up in the office in 2 weeks Subjective Date of service: 05/27/17 Interval history: The patient is able to ambulate with a rolling walker. He does have some pain with ambulation he states his foot feels well otherwise. He does still have a mild foot drop. He has no other complaints. Objective - Constitutional Vitals: Vital Signs - 12hr 05/27/17 05/27/17 07:28 10:00 Temperature 98.6 F Pulse Rate 84 Respiratory 20 Rate Blood Pressure 105/54 O2 Sat by Pulse 95 95 Oximetry General appearance: Present: no acute distress - Respiratory Respiratory effort: normal Extremities: pulses intact (palpable dorsalis pedis arteries bilaterally), normal temperature Extremity abnormal: edema (left foot), cyanosis (mild cyanosis of the left first toe), other (left lateral calf incision clean dry and intact medial left calf incision with granulation in the base) - Gastrointestinal General gastrointestinal: Present: soft - Labs CBC & Chem 7: 05/23/17 03:00 05/25/17 04:33
== END 2017-05-27 15:55 | disposition home or self-care (01) | DRG 253 ==
LOC: ED 12:07 → 3A 22:14 → CC1 05-23 00:14 → 3A 05-23 19:15
PROVIDERS: ADMIT Internal Medicine; ATTEND Internal Medicine
PROC: B41G1ZZ Fluoroscopy of Left Lower Extremity Arteries using Low Osmolar Contrast (ICD-10-PCS; principal; 2017-05-22)
PROC: 047L3ZZ Dilation of Left Femoral Artery, Percutaneous Approach (ICD-10-PCS; 2017-05-22)
PROC: 047N3ZZ Dilation of Left Popliteal Artery, Percutaneous Approach (ICD-10-PCS; 2017-05-22)
PROC: 3E05317 Introduction of Other Thrombolytic into Peripheral Artery, Percutaneous Approach (ICD-10-PCS; 2017-05-22)
PROC: 047Q34Z Dilation of Left Anterior Tibial Artery with Drug-eluting Intraluminal Device, Percutaneous Approach (ICD-10-PCS; 2017-05-23)
PROC: 047L34Z Dilation of Left Femoral Artery with Drug-eluting Intraluminal Device, Percutaneous Approach (ICD-10-PCS; 2017-05-23)
PROC: 0JPWXXZ Removal of Tunneled Vascular Access Device from Lower Extremity Subcutaneous Tissue and Fascia, External Approach (ICD-10-PCS; 2017-05-23)
PROC: 0KNT0ZZ Release Left Lower Leg Muscle, Open Approach (ICD-10-PCS; 2017-05-25)
PROC: 0KBT0ZZ Excision of Left Lower Leg Muscle, Open Approach (ICD-10-PCS; 2017-05-25)
PROC: 0HXLXZZ Transfer Left Lower Leg Skin, External Approach (ICD-10-PCS; 2017-05-25)
DX: T82.858A Stenosis of other vascular prosthetic devices, implants and grafts, initial encounter (principal); T79.A22A Traumatic compartment syndrome of left lower extremity, initial encounter; I74.3 Embolism and thrombosis of arteries of the lower extremities; I70.422 Atherosclerosis of autologous vein bypass graft(s) of the extremities with rest pain, left leg; I99.8 Other disorder of circulatory system; I72.4 Aneurysm of artery of lower extremity; E78.5 Hyperlipidemia, unspecified; F17.200 Nicotine dependence, unspecified, uncomplicated; Z79.899 Other long term (current) drug therapy; Z72.89 Other problems related to lifestyle
CPT/HCPCS: 36415; 37211; 37214; 37224; 37226; 37230; 37232; 75710; 80048; 82140; 82550; 82553; 84484; 85025; 85384; 85520; 85610; 85730; 86850; 86900; 86901; 88305; 94760; 96365; 96366; 96368; 96374; 96375; 96376; 99406; A9270-GY; C1725; C1750; C1757; C1760; C1769; C1874; C1887; J0690; J1170; J1644; J1650; J2250; J2270; J2370; J2405; J2704; J2997; J3010; J7030; J7040; J7120; Q9967

== ENCOUNTER 2017-08-17 12:09 | Inpatient (IN) | payer OTHER ==
--- NOTE | 2017-08-17 20:34 | Emergency Department Report ---
ED Extremity Problem HPI - General Chief complaint: Extremity Problem,Nontraumatic Stated complaint: LEFT FOOT SWOLLEN/COMPLICATION WITH SURGERY Time Seen by Provider: 08/17/17 20:21 Source: patient Mode of arrival: Ambulatory Limitations: No Limitations - History of Present Illness Initial comments: hx of popliteal a. bypass graft w/ clot removal in , complicated by compartment syndrome last saw vascular a mo. ago, hx of lower leg infection after surgery treated at [facility] , here today states increased pain and discharge from surgical site that is nonhealing MD Complaint: extremity pain, extremity swelling -: Gradual, days(s), week(s) Location: left, lower extremity Quality: burning Consistency: intermittent Associated Symptoms: fever - Related Data Home Medications Medication Instructions Recorded Confirmed Last Taken AtorvaSTATin [Lipitor] 20 mg PO QHS 01/27/17 05/21/17 03/27/17 Clopidogrel [Plavix] 75 mg PO QDAY 01/27/17 05/21/17 03/28/17 05:00 Gemfibrozil [Lopid] 600 mg PO BID 01/27/17 05/21/17 03/27/17 oxyCODONE /ACETAMINOPHEN [Percocet 1 tab PO Q6HR PRN 03/28/17 05/21/17 03/27/17 5/325 mg] Previous Rx's Medication Instructions Recorded Last Taken Type Apixaban [Eliquis] 5 mg PO Q12HR #60 tablet 03/12/17 03/28/17 05:00 Rx HYDROcodone/APAP 5-325 [[place] 1 each PO Q6HR PRN #50 tablet 03/28/17 Unknown Rx 5-325 mg TAB] Oxycodone HCl/Acetaminophen 1 each PO Q6HR PRN #15 tablet 05/27/17 Unknown Rx [Percocet 10/325 mg] Allergies Allergy/AdvReac Type Severity Reaction Status Date / Time No Known Allergies Allergy Verified 03/27/17 10:30 ED Review of Systems ROS: Stated complaint: LEFT FOOT SWOLLEN/COMPLICATION WITH SURGERY Other details as noted in HPI Comment: All other systems reviewed and negative Constitutional: denies: diaphoresis, malaise Eyes: denies: eye discharge, vision change Respiratory: denies: shortness of breath, SOB with exertion, SOB at rest, stridor Cardiovascular: denies: chest pain, palpitations, dyspnea on exertion, orthopnea , edema, syncope Gastrointestinal: denies: diarrhea, constipation, hematemesis, melena Musculoskeletal: arthralgia, myalgia Skin: change in color Neurological: denies: numbness, paresthesias, confusion, abnormal gait Psychiatric: denies: auditory hallucinations, visual hallucinations, homicidal thoughts, suicidal thoughts ED Past Medical Hx - Past Medical History Hx Hypertension: Yes Hx Congestive Heart Failure: No Hx Diabetes: No Hx Asthma: No Hx COPD: No Hx HIV: No Additional medical history: ruptured blood vessel to left leg - Surgical History Hx Cholecystectomy: No Hx Appendectomy: No Hx Breast Surgery: No Additional Surgical History: bypass left leg - Social History Smoking Status: Current Some Day Smoker Substance Use Type: Marijuana - Medications Home Medications: Home Medications Medication Instructions Recorded Confirmed Last Taken Type AtorvaSTATin [Lipitor] 20 mg PO QHS 01/27/17 05/21/17 03/27/17 History Clopidogrel [Plavix] 75 mg PO QDAY 01/27/17 05/21/17 03/28/17 05:00 History Gemfibrozil [Lopid] 600 mg PO BID 01/27/17 05/21/17 03/27/17 History Apixaban [Eliquis] 5 mg PO Q12HR #60 tablet 03/12/17 05/21/17 03/28/17 05:00 Rx HYDROcodone/APAP 5-325 [[place] 1 each PO Q6HR PRN #50 tablet 03/28/17 05/21/17 Unknown Rx 5-325 mg TAB] oxyCODONE /ACETAMINOPHEN [Percocet 1 tab PO Q6HR PRN 03/28/17 05/21/17 03/27/17 History 5/325 mg] Oxycodone HCl/Acetaminophen 1 each PO Q6HR PRN #15 tablet 05/27/17 Unknown Rx [Percocet 10/325 mg] ED Physical Exam - General Limitations: No Limitations General appearance: alert, anxious - Head Head exam: Present: atraumatic, normocephalic - Eye Eye exam: Present: normal appearance, PERRL, EOMI - ENT ENT exam: Present: normal exam, normal orophraynx - Neck Neck exam: Present: normal inspection. Absent: tenderness, meningismus - Respiratory Respiratory exam: Present: normal lung sounds bilaterally. Absent: respiratory distress, wheezes, rales, rhonchi, stridor, chest wall tenderness, accessory muscle use, decreased breath sounds - Cardiovascular Cardiovascular Exam: Present: regular rate, normal rhythm - GI/Abdominal GI/Abdominal exam: Present: soft. Absent: distended, tenderness, guarding, rebound, rigid, mass, pulsatile mass - Extremities Exam Extremities exam: Present: other (Left lower extremity necrotic tissue. poor Wound healing w discharged, no soft tissue gas distally neurovascular intact) - Back Exam Back exam: Present: normal inspection - Neurological Exam Neurological exam: Present: alert, oriented X3, CN II-XII intact. Absent: motor sensory deficit - Skin Skin exam: Present: erythema, pallor ED Course Vital Signs 08/17/17 12:51 Temperature 98.8 F Pulse Rate 108 H Respiratory 19 Rate Blood Pressure 121/63 O2 Sat by Pulse 100 Oximetry ED Medical Decision Making - Lab Data Result diagrams: 08/17/17 20:59 08/17/17 20:59 - Radiology Data Radiology results: report reviewed - Medical Decision Making Patient is CT angiogram of lower extremity shows current thrombosed graft patient also has evidence of cellulitis with necrotic tissue and discharged given antibiotics case was discussed with hospitalist for admit to discuss Dr. Bryant of vascular usual recommending heparin drip Critical care attestation.: If time is entered above; I have spent that time in minutes in the direct care of this critically ill patient, excluding procedure time. ED Disposition Clinical Impression: AV graft thrombosis, Cellulitis Disposition: OP ADMIT IP TO THIS HOSP Is pt being admited?: Yes Condition: Stable Time of Disposition: 01:47
[2017-08-17 21:10] LABS: Basophils # (Auto) 0.1 K/mm3 (0.0-0.1); Basophils % (Auto) 0.8 % (0.0-1.8); Eosinophils # (Auto) 0.1 K/mm3 (0.0-0.4); Eosinophils % (Auto) 1.4 % (0.0-4.3); Hematocrit 33.4 % (35.5-45.6); Hemoglobin 10.7 gm/dl (11.8-15.2); Lymphocytes # (Auto) 2.2 K/mm3 (1.2-5.4); Lymphocytes % (Auto) 23.1 % (13.4-35.0); Mean Corpuscular HGB Conc 32 % (32-34); Mean Corpuscular Hemoglobin 29 pg (28-32); Mean Corpuscular Volume 91 fl (84-94); Monocytes # (Auto) 0.9 K/mm3 (0.0-0.8); Monocytes % (Auto) 9.2 % (0.0-7.3); Platelet Count 379 K/mm3 (140-440); Red Blood Count 3.66 M/mm3 (3.65-5.03); Red Cell Distribution Width 16.9 % (13.2-15.2)
[2017-08-17 21:26] LABS: Alanine Aminotransferase 56 units/L (7-56); Albumin 3.3 g/dL (3.9-5); BUN/Creatinine Ratio 13; Blood Urea Nitrogen 10 mg/dL (9-20); Calcium 9.3 mg/dL (8.4-10.2); Hemolysis Index 18
[2017-08-17] MEDS ORDERED: ZOFRAN ONE (22:38)
[2017-08-17] MEDS ORDERED: SUBLIMAZE ONE (22:38)
[2017-08-17] MEDS ORDERED: ZOFRAN IV ONE (22:41)
[2017-08-17] MEDS ORDERED: SUBLIMAZE IV ONE (22:41)
--- NOTE | 2017-08-18 00:47 | Cat Scan Report ---
FINAL REPORT PROCEDURE: CT ANGIO LOWER EXTREMITY LT TECHNIQUE: Computerized tomographic angiography of the LEFT lower extremity was performed after the IV injection of iodinated nonionic contrast including image processing. The image data was postprocessed using 2-dimensional multiplanar reformatted (MPR) and 3-dimensional (MIP and/or volume rendered) techniques. HISTORY: leg pain, popiliteal graft COMPARISON: 12/15/2016 FINDINGS: The osseous structures that are imaged appear intact. The lower pelvic structures imaged are normal. There are small bilateral fat containing inguinal hernias. There is appropriate opacification of the external iliac artery. No stenosis is noted. There is occlusion of the proximal superficial femoral artery just below its origin. There is occlusion of grafts identified in the region of the left mid and distal thigh. Occlusion of a left popliteal graft is noted. There is reconstitution of the anterior posterior tibial arteries in the [place] region. Soft tissue change identified along the anterior lateral left tibia and fibula extending from the region just below knee to just above of the ankle. Soft tissue ulceration in this region is suspected. The remainder of the musculature and fascial planes of the left lower extremity are maintained. IMPRESSION: There occlusion of the left superficial femoral artery including the grafts in the left mid the distal thigh and occlusion of the left popliteal graft. Soft tissue change possibly representing an ulceration identified along the anterior lateral left tibia and fibula extending from the region just below the knee to just above the ankle.
[2017-08-18] MEDS ORDERED: HEPARIN 10,000 UNITS/10 ML IV ONE (01:41)
[2017-08-18] MEDS ORDERED: HEPARIN 25,000 UNIT in D5W 497.5 ML IV SCH (02:00)
[2017-08-18 02:10] LABS: INR 1.14 (0.87-1.13)
[2017-08-18 02:11] LABS: Partial Thromboplastin Time 39.3 Sec. (24.2-36.6)
[2017-08-18] MEDS ORDERED: ZOFRAN IV PRN (02:18)
[2017-08-18] MEDS ORDERED: TYLENOL PO PRN (02:18)
--- NOTE | 2017-08-18 02:22 | History and Physical Report ---
History of Present Illness Date of examination: 08/18/17 History of present illness: 52-year-old man with a history of extensive vascular disease of left leg, popliteal artery aneurysm, femoropopliteal artery thrombosis, tobacco abuser comes emergency room because his left ankle with swelling 4 days. He has a left leg wound since May, he is also status post fasciotomy of the left leg on the last admission, he stated that he noticed a milky brown discharge from the wound and the edges of the wound is red. Denies fever or chills Review of systems Constitutional: no weight loss, chills Ears, eyes, nose, mouth and throat: no nasal congestion, no nasal discharge, no sinus pressure, no vision change, no red eye. Neck: No neck pain or rigidity. Cardiovascular: no chest pain, palpitations Respiratory: No cough, shortness of breath Gastrointestinal: no abdominal pain, hematochezia Genitourinary : no dysuria, frequency , no hematuria Musculoskeletal: no joint swelling or muscle ache Integumentary: no rash, no pruritis Neurological: no parathesias, no numbness, no focal weakness Endocrine: no cold or heat intolerance, no polyuria or polydipsia Hematologic/Lymphatic: no easy bruising, no easy bleeding, no gland swelling Allergic/Immunologic: no urticaria, no angioedema. PAST MEDICAL HISTORY: Popliteal artery aneurysm, femoropopliteal artery thrombosis PAST SURGICAL HISTORY: Right hip repair fasciotomy on the left leg, bypass on left leg SOCIAL HISTORY: Smoke 9 Cigarettes day, no alcohol or drugs FAMILY HISTORY: Hypertension Medications and Allergies Allergies Allergy/AdvReac Type Severity Reaction Status Date / Time No Known Allergies Allergy Verified 03/27/17 10:30 Home Medications Medication Instructions Recorded Confirmed Last Taken Type AtorvaSTATin [Lipitor] 20 mg PO QHS 01/27/17 05/21/17 03/27/17 History Clopidogrel [Plavix] 75 mg PO QDAY 01/27/17 05/21/17 03/28/17 05:00 History Gemfibrozil [Lopid] 600 mg PO BID 01/27/17 05/21/17 03/27/17 History Apixaban [Eliquis] 5 mg PO Q12HR #60 tablet 03/12/17 05/21/17 03/28/17 05:00 Rx HYDROcodone/APAP 5-325 [[place] 1 each PO Q6HR PRN #50 tablet 03/28/17 05/21/17 Unknown Rx 5-325 mg TAB] oxyCODONE /ACETAMINOPHEN [Percocet 1 tab PO Q6HR PRN 03/28/17 05/21/17 03/27/17 History 5/325 mg] Oxycodone HCl/Acetaminophen 1 each PO Q6HR PRN #15 tablet 05/27/17 Unknown Rx [Percocet 10/325 mg] Active Meds: Active Medications Acetaminophen (Tylenol) 650 mg PO Q4H PRN PRN Reason: Pain MILD(1-3)/Fever >100.5/HERNANDEZ Piperacillin Sod/Tazobactam Sod (Zosyn/Ns 3.375gm/50ml) 3.375 gm in 50 mls @ 100 mls/hr IV Q6HR KELLY Heparin Sodium (Porcine) 25, (000 unit/ Dextrose) 500 mls @ 23.13 mls/hr IV TITR KELLY; Protocol Vancomycin HCl (Vancomycin/Ns 1 Gm/250 Ml) 1 gm in 250 mls @ 167.007 mls/hr IV ONCE KELLY; Protocol Ondansetron HCl (Zofran) 4 mg IV Q8H PRN PRN Reason: Nausea And Vomiting Oxycodone/Acetaminophen (Percocet 5/325) 1 tab PO Q4H PRN PRN Reason: Pain, Moderate (4-6) Sodium Chloride (Sodium Chloride Flush Syringe 10 Ml) 10 ml IV BID KELLY Sodium Chloride (Sodium Chloride Flush Syringe 10 Ml) 10 ml IV PRN PRN PRN Reason: LINE FLUSH Vancomycin HCl (Vancomycin Pharmacy To Dose) 1 each IV PKCONSULT KELLY Exam - Physical Exam Narrative exam: Gen. appearance: Patient lying in bed, no apparent distress HEENT: Normocephalic, atraumatic, pupils equally round and reactive to light, extraocular movement intact, and no sclericterus,. No JVD or thyromegaly or nodule,neck supple, no carotid bruit ,mucous membranes moist, no exudate or erythema Heart: S1, S2, regular rate and rhythm Lungs: Clear to auscultation bilaterally, breathing comfortable Abdomen: Positive bowel sounds, nontender, nondistended, no organomegaly Extremity: Left leg wound with necrotic tissue, yellow discharge, positive erythema around the wound , tender to touch , swelling of left ankle, toes from 1-4 with mild erythema, there is a superficial wound on the left fifth toe. No cyanosis, clubbing Skin: No rash, nodules, warm, dry Neuro: Oriented 3, cranial nerves II-12 intact, speech is fluent, motor and sensory intact - Constitutional Vitals: Temp Pulse Resp BP Pulse Ox 98.8 F 108 H 19 121/63 100 08/17/17 12:51 08/17/17 12:51 08/17/17 12:51 08/17/17 12:51 08/17/17 12:51 Results - Labs CBC & Chem 7: 08/17/17 20:59 08/17/17 20:59 Labs: Abnormal lab results 08/17/17 08/17/17 08/18/17 Range/Units 20:59 20:59 01:41 Hgb 10.7 L (11.8-15.2) gm/dl Hct 33.4 L (35.5-45.6) % RDW 16.9 H (13.2-15.2) % [place] % (Auto) 9.2 H (0.0-7.3) % [place] # 0.9 H (0.0-0.8) K/mm3 PT 15.2 H (12.2-14.9) Sec. INR 1.14 H (0.87-1.13) APTT 39.3 H (24.2-36.6) Sec. Sodium 136 L (137-145) mmol/L Chloride 95.7 L (98-107) mmol/L Glucose 102 H (75-100) mg/dL Albumin 3.3 L (3.9-5) g/dL Assessment and Plan CT of the leg reviewed Assessment Superficial femoral artery occlusion Occlusion of the grafts in his left leg Cellulitis of the left lower extremity Pain Admit to medicine Continue heparin drip, monitor serial hemoglobin Start vancomycin, Zosyn, obtain blood cultures, wound cultures Vascular is Consulted to see the patient, Dr. Tafoya is aware DVT prophylaxis
[2017-08-18] MEDS: ZOSYN/NS 3.375GM/50ML 3.375 GM/50 ML BAG IV SCH ×4 (02:30→20:00)
[2017-08-18] MEDS ORDERED: VANCOMYCIN PHARMACY TO DOSE IV SCH (03:00)
[2017-08-18] MEDS ORDERED: VANCOMYCIN/NS 1 GM/250 ML 1 GM/250 ML BAG IV SCH (03:00)
[2017-08-18] MEDS ORDERED: VANCOMYCIN 1,500 MG in NACL 0.9% 500 ML 500 ML IV ONE (04:00)
[2017-08-18] MEDS: PERCOCET 5/325 PO PRN ×4 (07:01→21:33)
[2017-08-18] MEDS: PLAVIX PO SCH (09:58)
[2017-08-18] MEDS: LOPID PO SCH ×2 (09:58→21:33)
[2017-08-18] MEDS: SODIUM CHLORIDE FLUSH SYRINGE 10 ML IV SCH ×2 (10:12→21:33)
--- NOTE | 2017-08-18 10:29 | Progress Note ---
<NAOMI WHEELER - Last Filed: 08/18/17 15:52> Assessment and Plan Assessment and plan: 52 year-old man presented to ED with L ankle swelling for 4 days prior to admission along with wound drainage from L leg. Superficial femoral artery occlusion Occlusion of the grafts in his left leg Continue heparin drip, monitor serial hemoglobin, Vascular consulted Cellulitis of the left lower extremity Continue abx, wound care consulted, follow wound cultures Hyperlipidemia Continue gemfibrozil and statin therapy Mild malnutrition Nutrition consult DVT prophylaxis History Interval history: Patient seen and examined. No new events overnight. labs and nursing notes reviewed. Hospitalist Physical - Constitutional Vitals: Temp Pulse Resp BP Pulse Ox 99.4 F 81 18 107/58 97 08/18/17 08:35 08/18/17 08:35 08/18/17 08:35 08/18/17 08:35 08/18/17 08:35 General appearance: Present: no acute distress, well-nourished - EENT Eyes: Present: PERRL, EOM intact ENT: hearing intact, clear oral mucosa - Neck Neck: Present: supple, normal ROM - Respiratory Respiratory effort: normal Respiratory: bilateral: CTA - Cardiovascular Rhythm: regular Heart Sounds: Present: S1 & S2 - Extremities Extremities: no ischemia, No edema, normal temperature, normal color Extremity abnormal: other (LLE bandaged) - Abdominal General gastrointestinal: soft, non-tender, non-distended - Integumentary Integumentary: Present: clear, warm, dry - Psychiatric Psychiatric: appropriate mood/affect, intact judgment & insight, cooperative - Neurologic Neurologic: CNII-XII intact, moves all extremities Results - Labs CBC & Chem 7: 08/17/17 20:59 08/17/17 20:59 Labs: Laboratory Last Values WBC 9.7 K/mm3 (4.5-11.0) 08/17/17 20:59 RBC 3.66 M/mm3 (3.65-5.03) 08/17/17 20:59 Hgb 10.7 gm/dl (11.8-15.2) L 08/17/17 20:59 Hct 33.4 % (35.5-45.6) L 08/17/17 20:59 MCV 91 fl (84-94) 08/17/17 20:59 MCH 29 pg (28-32) 08/17/17 20:59 MCHC 32 % (32-34) 08/17/17 20:59 RDW 16.9 % (13.2-15.2) H 08/17/17 20:59 Plt Count 379 K/mm3 (140-440) 08/17/17 20:59 Lymph % (Auto) 23.1 % (13.4-35.0) 08/17/17 20:59 [place] % (Auto) 9.2 % (0.0-7.3) H 08/17/17 20:59 Eos % (Auto) 1.4 % (0.0-4.3) 08/17/17 20:59 Baso % (Auto) 0.8 % (0.0-1.8) 08/17/17 20:59 Lymph # 2.2 K/mm3 (1.2-5.4) 08/17/17 20:59 [place] # 0.9 K/mm3 (0.0-0.8) H 08/17/17 20:59 Eos # 0.1 K/mm3 (0.0-0.4) 08/17/17 20:59 Baso # 0.1 K/mm3 (0.0-0.1) 08/17/17 20:59 Seg Neutrophils % 65.5 % (40.0-70.0) 08/17/17 20:59 Seg Neutrophils # 6.3 K/mm3 (1.8-7.7) 08/17/17 20:59 PT 15.2 Sec. (12.2-14.9) H 08/18/17 01:41 INR 1.14 (0.87-1.13) H 08/18/17 01:41 APTT 39.3 Sec. (24.2-36.6) H 08/18/17 01:41 Heparin Anti-Xa Level 0.41 U.I./ml (0.3-0.7) 08/18/17 08:22 Sodium 136 mmol/L (137-145) L 08/17/17 20:59 Potassium 4.9 mmol/L (3.6-5.0) 08/17/17 20:59 Chloride 95.7 mmol/L (98-107) L 08/17/17 20:59 Carbon Dioxide 27 mmol/L (22-30) 08/17/17 20:59 Anion Gap 18 mmol/L 08/17/17 20:59 BUN 10 mg/dL (9-20) 08/17/17 20:59 Creatinine 0.8 mg/dL (0.8-1.5) 08/17/17 20:59 Estimated GFR > 60 ml/min 08/17/17 20:59 BUN/Creatinine Ratio 13 % 08/17/17 20:59 Glucose 102 mg/dL (75-100) H 08/17/17 20:59 Calcium 9.3 mg/dL (8.4-10.2) 08/17/17 20:59 Total Bilirubin < 0.20 mg/dL (0.1-1.2) 08/17/17 20:59 AST 31 units/L (5-40) 08/17/17 20:59 ALT 56 units/L (7-56) 08/17/17 20:59 Alkaline Phosphatase 91 units/L (35-129) 08/17/17 20:59 Total Protein 8.2 g/dL (6.3-8.2) 08/17/17 20:59 Albumin 3.3 g/dL (3.9-5) L 08/17/17 20:59 Albumin/Globulin Ratio 0.7 % 08/17/17 20:59 <RAMIRO EDMONDS - Last Filed: 08/18/17 23:27> Assessment and Plan Assessment and plan: I saw and evaluated the patient. I agree with the findings and the plan of care as documented in the PA's~note, with the following corrections and additions. VERY NON COMPLIANT PATIENT Hospitalist Physical - Constitutional Vitals: Temp Pulse Resp BP Pulse Ox 99.0 F 72 20 101/55 97 08/18/17 19:37 08/18/17 21:10 08/18/17 21:34 08/18/17 19:37 08/18/17 21:10 Results - Labs CBC & Chem 7: 08/17/17 20:59 08/17/17 20:59 Labs: Laboratory Last Values WBC 9.7 K/mm3 (4.5-11.0) 08/17/17 20:59 RBC 3.66 M/mm3 (3.65-5.03) 08/17/17 20:59 Hgb 10.7 gm/dl (11.8-15.2) L 08/17/17 20:59 Hct 33.4 % (35.5-45.6) L 08/17/17 20:59 MCV 91 fl (84-94) 08/17/17 20:59 MCH 29 pg (28-32) 08/17/17 20:59 MCHC 32 % (32-34) 08/17/17 20:59 RDW 16.9 % (13.2-15.2) H 08/17/17 20:59 Plt Count 379 K/mm3 (140-440) 08/17/17 20:59 Lymph % (Auto) 23.1 % (13.4-35.0) 08/17/17 20:59 [place] % (Auto) 9.2 % (0.0-7.3) H 08/17/17 20:59 Eos % (Auto) 1.4 % (0.0-4.3) 08/17/17 20:59 Baso % (Auto) 0.8 % (0.0-1.8) 08/17/17 20:59 Lymph # 2.2 K/mm3 (1.2-5.4) 08/17/17 20:59 [place] # 0.9 K/mm3 (0.0-0.8) H 08/17/17 20:59 Eos # 0.1 K/mm3 (0.0-0.4) 08/17/17 20:59 Baso # 0.1 K/mm3 (0.0-0.1) 08/17/17 20:59 Seg Neutrophils % 65.5 % (40.0-70.0) 08/17/17 20:59 Seg Neutrophils # 6.3 K/mm3 (1.8-7.7) 08/17/17 20:59 PT 15.2 Sec. (12.2-14.9) H 08/18/17 01:41 INR 1.14 (0.87-1.13) H 08/18/17 01:41 APTT 39.3 Sec. (24.2-36.6) H 08/18/17 01:41 Heparin Anti-Xa Level 0.41 U.I./ml (0.3-0.7) 08/18/17 08:22 Sodium 136 mmol/L (137-145) L 08/17/17 20:59 Potassium 4.9 mmol/L (3.6-5.0) 08/17/17 20:59 Chloride 95.7 mmol/L (98-107) L 08/17/17 20:59 Carbon Dioxide 27 mmol/L (22-30) 08/17/17 20:59 Anion Gap 18 mmol/L 08/17/17 20:59 BUN 10 mg/dL (9-20) 08/17/17 20:59 Creatinine 0.8 mg/dL (0.8-1.5) 08/17/17 20:59 Estimated GFR > 60 ml/min 08/17/17 20:59 BUN/Creatinine Ratio 13 % 08/17/17 20:59 Glucose 102 mg/dL (75-100) H 08/17/17 20:59 Calcium 9.3 mg/dL (8.4-10.2) 08/17/17 20:59 Total Bilirubin < 0.20 mg/dL (0.1-1.2) 08/17/17 20:59 AST 31 units/L (5-40) 08/17/17 20:59 ALT 56 units/L (7-56) 08/17/17 20:59 Alkaline Phosphatase 91 units/L (35-129) 08/17/17 20:59 Total Protein 8.2 g/dL (6.3-8.2) 08/17/17 20:59 Albumin 3.3 g/dL (3.9-5) L 08/17/17 20:59 Albumin/Globulin Ratio 0.7 % 08/17/17 20:59
[2017-08-18] MEDS: VANCOMYCIN/0.45 NS 1 GM/250 ML 1 GM/250 ML BAG IV SCH ×2 (13:03→19:44)
--- NOTE | 2017-08-18 16:12 | Consultation ---
History of Present Illness - Reason for Consult Consult date: 08/18/17 peripheral vascular disease with left leg pain Requesting physician: RASTA MESA - History of Present Illness The patient is a 52-year-old male who is well-known to our service. He has a history of peripheral vascular disease and tobacco abuse with a previous left femoropopliteal bypass that thrombosed and a redo left femoral to tibial bypass that has required multiple procedures to revascularize his left lower extremity. He presents to the hospital with complaints of left leg pain that has worsened over the past several days. He also complains of left leg swelling that had worsened over this same time interval. He denies any fever or chills or any shortness of breath. Past History Past Medical History: hyperlipidemia, PVD Past Surgical History: Other (left leg bypass 2, left leg fasciotomy, multiple left lower extremity endovascular procedures, right lower extremity vein harvest for left leg bypass) Social history: smoking Medications and Allergies Allergies Allergy/AdvReac Type Severity Reaction Status Date / Time No Known Allergies Allergy Verified 03/27/17 10:30 Home Medications Medication Instructions Recorded Confirmed Last Taken Type AtorvaSTATin [Lipitor] 20 mg PO QHS 01/27/17 05/21/17 03/27/17 History Clopidogrel [Plavix] 75 mg PO QDAY 01/27/17 05/21/17 03/28/17 05:00 History Gemfibrozil [Lopid] 600 mg PO BID 01/27/17 05/21/17 03/27/17 History Apixaban [Eliquis] 5 mg PO Q12HR #60 tablet 03/12/17 05/21/17 03/28/17 05:00 Rx HYDROcodone/APAP 5-325 [[place]ille 1 each PO Q6HR PRN #50 tablet 03/28/17 05/21/17 Unknown Rx 5-325 mg TAB] oxyCODONE /ACETAMINOPHEN [Percocet 1 tab PO Q6HR PRN 03/28/17 05/21/17 03/27/17 History 5/325 mg] Oxycodone HCl/Acetaminophen 1 each PO Q6HR PRN #15 tablet 05/27/17 Unknown Rx [Percocet 10/325 mg] Active Meds: Active Medications Acetaminophen (Tylenol) 650 mg PO Q4H PRN PRN Reason: Pain MILD(1-3)/Fever >100.5/HERNANDEZ Atorvastatin Calcium (Lipitor) 20 mg PO QHS [facility] Clopidogrel Bisulfate (Plavix) 75 mg PO QDAY [facility] Last Admin: 08/18/17 09:58 Dose: 75 mg Gemfibrozil (Lopid) 600 mg PO BID [facility] Last Admin: 08/18/17 09:58 Dose: 600 mg Piperacillin Sod/Tazobactam Sod (Zosyn/Ns 3.375gm/50ml) 3.375 gm in 50 mls @ 100 mls/hr IV Q6HR [facility] Last Admin: 08/18/17 15:09 Dose: 100 mls/hr Vancomycin HCl (Vancomycin/0.45 Ns 1 Gm/250 Ml) 1 gm in 250 mls @ 125 mls/hr IV Q8H [facility] Last Admin: 08/18/17 13:03 Dose: 125 mls/hr Heparin Sodium (Porcine) 25, (000 unit/ Dextrose) 500 mls @ 23.13 mls/hr IV TITR [facility]; Protocol Ondansetron HCl (Zofran) 4 mg IV Q8H PRN PRN Reason: Nausea And Vomiting Oxycodone/Acetaminophen (Percocet 5/325) 1 tab PO Q4H PRN PRN Reason: Pain, Moderate (4-6) Last Admin: 08/18/17 13:12 Dose: 1 tab Sodium Chloride (Sodium Chloride Flush Syringe 10 Ml) 10 ml IV BID [facility] Last Admin: 08/18/17 10:12 Dose: 10 ml Sodium Chloride (Sodium Chloride Flush Syringe 10 Ml) 10 ml IV PRN PRN PRN Reason: LINE FLUSH Vancomycin HCl (Vancomycin Pharmacy To Dose) 1 each IV PKCONSULT [facility] Review of Systems All systems: negative Exam - Constitutional Vitals: Temp Pulse Resp BP Pulse Ox 99.4 F 81 20 94/53 97 08/18/17 08:35 08/18/17 08:35 08/18/17 13:12 08/18/17 11:58 08/18/17 08:35 General appearance: Present: no acute distress - Respiratory Respiratory effort: normal - Cardiovascular Rhythm: regular - Extremities Extremities: pulses intact (right lower extremity), normal temperature ( bilateral lower extremities), abnormal (nonpalpable pedal pulses left lower extremity) Extremity abnormal: edema (minimal edema left lower extremity), cyanosis (left first toe), ulceration (ulceration of left mid calf with necrotic tissue in mid wound) - Abdominal General gastrointestinal: Present: soft, non-tender, non-distended - Musculoskeletal Musculoskeletal: other (left foot drop) Results - Labs CBC & Chem 7: 08/17/17 20:59 08/17/17 20:59 Labs: Abnormal lab results 08/17/17 08/17/17 08/18/17 Range/Units 20:59 20:59 01:41 Hgb 10.7 L (11.8-15.2) gm/dl Hct 33.4 L (35.5-45.6) % RDW 16.9 H (13.2-15.2) % [place] % (Auto) 9.2 H (0.0-7.3) % [place] # 0.9 H (0.0-0.8) K/mm3 PT 15.2 H (12.2-14.9) Sec. INR 1.14 H (0.87-1.13) APTT 39.3 H (24.2-36.6) Sec. Sodium 136 L (137-145) mmol/L Chloride 95.7 L (98-107) mmol/L Glucose 102 H (75-100) mg/dL Albumin 3.3 L (3.9-5) g/dL - Imaging and Cardiology CT scan - abdomen: image reviewed (CTA of left lower extremity reviewed) Assessment and Plan The patient is a 52-year-old male with a history of left lower extremity bypass. The CTA demonstrated thrombosis of the bypass graft. He does have preserved flow to the anterior tibial artery which is the main outflow vessel of the bypass graft. He has some pain however the patient's limb is not threatened at this time. There is no need for emergent intervention however he does require intervention during this hospitalization. Recommend continuing heparin for anticoagulation over the weekend. We will attempt percutaneous mechanical thrombectomy of the graft all Monday. If this attempt was not successful the patient has limited options for revascularization which includes prosthetic graft with PTFE to the anterior tibial artery which has a very poor patency rate versus a cryopreserved graft to the anterior tibial artery which also has limited patency rate especially given that the patient continues to smoke tobacco. The only option for amputation given the patient's arterial flow would be an above-knee amputation.
[2017-08-18] MEDS: NACL 0.45% IV SCH (19:44)
[2017-08-18] MEDS: HEPARIN IV SCH (19:44)
[2017-08-19] MEDS: ZOSYN/NS 3.375GM/50ML 3.375 GM/50 ML BAG IV SCH ×5 (00:48→23:49)
[2017-08-19] MEDS: PERCOCET 5/325 PO PRN ×6 (01:27→22:34)
[2017-08-19] MEDS: VANCOMYCIN/0.45 NS 1 GM/250 ML 1 GM/250 ML BAG IV SCH ×3 (03:56→19:55)
[2017-08-19 06:07] LABS: Basophils # (Auto) 0.1 K/mm3 (0.0-0.1); Basophils % (Auto) 1.3 % (0.0-1.8); Eosinophils # (Auto) 0.1 K/mm3 (0.0-0.4); Eosinophils % (Auto) 1.3 % (0.0-4.3); Hemoglobin 10.1 gm/dl (11.8-15.2); Lymphocytes # (Auto) 1.4 K/mm3 (1.2-5.4); Lymphocytes % (Auto) 25.7 % (13.4-35.0); Mean Corpuscular HGB Conc 34 % (32-34); Mean Corpuscular Hemoglobin 30 pg (28-32); Mean Corpuscular Volume 89 fl (84-94); Monocytes # (Auto) 0.8 K/mm3 (0.0-0.8); Monocytes % (Auto) 13.8 % (0.0-7.3); Platelet Count 291 K/mm3 (140-440); Red Blood Count 3.38 M/mm3 (3.65-5.03); Red Cell Distribution Width 16.6 % (13.2-15.2)
[2017-08-19 06:22] LABS: BUN/Creatinine Ratio 11; Blood Urea Nitrogen 9 mg/dL (9-20); Calcium 8.7 mg/dL (8.4-10.2); Hemolysis Index 2
[2017-08-19] MEDS: SODIUM CHLORIDE FLUSH SYRINGE 10 ML IV SCH ×2 (09:47→21:16)
[2017-08-19] MEDS: PLAVIX PO SCH (09:47)
[2017-08-19] MEDS: LOPID PO SCH ×2 (09:47→21:17)
--- NOTE | 2017-08-19 11:44 | Progress Note ---
Assessment and Plan left fem distal bypass occlusion continue heparin drip attempt thrombolysis Monday Subjective Date of service: 08/19/17 Principal diagnosis: left LE occluded fem distal bypass Interval history: Patient is doing well. On Heparin drip, pain well controlled. Objective - Exam Narrative Exam: decreased LE edema, foot warm, patient comfortable - Constitutional Vitals: Vital Signs - 12hr 08/19/17 08/19/17 08/19/17 01:27 02:27 04:41 Temperature 99.2 F Pulse Rate 70 Respiratory 20 18 20 Rate Blood Pressure Blood Pressure 102/55 [Left] O2 Sat by Pulse 95 Oximetry 08/19/17 08/19/17 08/19/17 05:31 06:31 08:27 Temperature 98.9 F Pulse Rate 74 Respiratory 18 18 16 Rate Blood Pressure 99/58 Blood Pressure [Left] O2 Sat by Pulse 98 Oximetry 08/19/17 08/19/17 09:37 10:24 Temperature Pulse Rate Respiratory 20 Rate Blood Pressure Blood Pressure [Left] O2 Sat by Pulse 96 Oximetry - Labs CBC & Chem 7: 08/19/17 05:43 08/19/17 05:43 Labs: Abnormal lab results 08/19/17 08/19/17 08/19/17 Range/Units 05:43 05:43 09:57 RBC 3.38 L (3.65-5.03) M/mm3 Hgb 10.1 L (11.8-15.2) gm/dl Hct 30.0 L (35.5-45.6) % RDW 16.6 H (13.2-15.2) % [place] % (Auto) 13.8 H (0.0-7.3) % Heparin Anti-Xa Level 0.14 L (0.3-0.7) U.I./ml Sodium 134 L (137-145) mmol/L Glucose 117 H (75-100) mg/dL
--- NOTE | 2017-08-19 13:04 | Progress Note ---
Assessment and Plan Assessment and plan: 52 year-old man presented to ED with L ankle swelling for 4 days prior to admission along with wound drainage from L leg. Superficial femoral artery occlusion Occlusion of the grafts in his left leg Continue heparin drip, monitor serial hemoglobin, Vascular consulted Procedure planned for monday-percutaneous mechanical thrombectomy of the graft all Monday Cellulitis of the left lower extremity Continue abx, wound care consulted, follow wound cultures Hyperlipidemia Continue gemfibrozil and statin therapy Mild malnutrition Nutrition consult Tobacco/Nicotin dependance Counselling greater than 15 mins on need and benefits of cessation and risk associated with continuation; Patient verbalized understanding. DVT prophylaxis History Interval history: Patient seen and exam, no new complaints. tolerating heparin drip. no overt bleed. some pain noted in lower ext but improved since admission. now 06/17. Hospitalist Physical - Constitutional Vitals: Temp Pulse Resp BP Pulse Ox 98.9 F 84 20 99/58 98 08/19/17 08:27 08/19/17 10:00 08/19/17 10:24 08/19/17 08:27 08/19/17 10:00 General appearance: Present: no acute distress Results - Labs CBC & Chem 7: 08/19/17 05:43 08/19/17 05:43 Labs: Laboratory Last Values WBC 5.5 K/mm3 (4.5-11.0) 08/19/17 05:43 RBC 3.38 M/mm3 (3.65-5.03) L 08/19/17 05:43 Hgb 10.1 gm/dl (11.8-15.2) L 08/19/17 05:43 Hct 30.0 % (35.5-45.6) L 08/19/17 05:43 MCV 89 fl (84-94) 08/19/17 05:43 MCH 30 pg (28-32) 08/19/17 05:43 MCHC 34 % (32-34) 08/19/17 05:43 RDW 16.6 % (13.2-15.2) H 08/19/17 05:43 Plt Count 291 K/mm3 (140-440) 08/19/17 05:43 Lymph % (Auto) 25.7 % (13.4-35.0) 08/19/17 05:43 [place] % (Auto) 13.8 % (0.0-7.3) H 08/19/17 05:43 Eos % (Auto) 1.3 % (0.0-4.3) 08/19/17 05:43 Baso % (Auto) 1.3 % (0.0-1.8) 08/19/17 05:43 Lymph # 1.4 K/mm3 (1.2-5.4) 08/19/17 05:43 [place] # 0.8 K/mm3 (0.0-0.8) 08/19/17 05:43 Eos # 0.1 K/mm3 (0.0-0.4) 08/19/17 05:43 Baso # 0.1 K/mm3 (0.0-0.1) 08/19/17 05:43 Seg Neutrophils % 57.9 % (40.0-70.0) 08/19/17 05:43 Seg Neutrophils # 3.2 K/mm3 (1.8-7.7) 08/19/17 05:43 PT 15.2 Sec. (12.2-14.9) H 08/18/17 01:41 INR 1.14 (0.87-1.13) H 08/18/17 01:41 APTT 39.3 Sec. (24.2-36.6) H 08/18/17 01:41 Heparin Anti-Xa Level 0.14 U.I./ml (0.3-0.7) L 08/19/17 09:57 Sodium 134 mmol/L (137-145) L 08/19/17 05:43 Potassium 4.1 mmol/L (3.6-5.0) 08/19/17 05:43 Chloride 98.0 mmol/L (98-107) 08/19/17 05:43 Carbon Dioxide 25 mmol/L (22-30) 08/19/17 05:43 Anion Gap 15 mmol/L 08/19/17 05:43 BUN 9 mg/dL (9-20) 08/19/17 05:43 Creatinine 0.8 mg/dL (0.8-1.5) 08/19/17 05:43 Estimated GFR > 60 ml/min 08/19/17 05:43 BUN/Creatinine Ratio 11 % 08/19/17 05:43 Glucose 117 mg/dL (75-100) H 08/19/17 05:43 Calcium 8.7 mg/dL (8.4-10.2) 08/19/17 05:43 Total Bilirubin < 0.20 mg/dL (0.1-1.2) 08/17/17 20:59 AST 31 units/L (5-40) 08/17/17 20:59 ALT 56 units/L (7-56) 08/17/17 20:59 Alkaline Phosphatase 91 units/L (35-129) 08/17/17 20:59 Total Protein 8.2 g/dL (6.3-8.2) 08/17/17 20:59 Albumin 3.3 g/dL (3.9-5) L 08/17/17 20:59 Albumin/Globulin Ratio 0.7 % 08/17/17 20:59
[2017-08-19] MEDS: NACL 0.45% IV SCH (17:08)
[2017-08-19] MEDS: HEPARIN IV SCH (17:08)
[2017-08-20] MEDS: PERCOCET 5/325 PO PRN ×6 (02:31→22:28)
[2017-08-20] MEDS: VANCOMYCIN/0.45 NS 1 GM/250 ML 1 GM/250 ML BAG IV SCH ×3 (03:54→21:11)
[2017-08-20] MEDS: ZOSYN/NS 3.375GM/50ML 3.375 GM/50 ML BAG IV SCH ×5 (05:49→23:32)
[2017-08-20] MEDS: PLAVIX PO SCH (10:12)
[2017-08-20] MEDS: LOPID PO SCH ×2 (10:12→21:11)
[2017-08-20] MEDS: NACL 0.45% IV SCH ×2 (10:15→17:05)
[2017-08-20] MEDS: HEPARIN IV SCH ×2 (10:15→17:05)
[2017-08-20] MEDS: SODIUM CHLORIDE FLUSH SYRINGE 10 ML IV SCH ×2 (11:12→21:12)
--- NOTE | 2017-08-20 12:14 | Progress Note ---
Assessment and Plan left fem distal bypass occlusion continue heparin drip attempt thrombolysis Monday Subjective Date of service: 08/20/17 Principal diagnosis: left LE occluded fem distal bypass Interval history: Patient is doing well. On Heparin drip, pain well controlled. Objective - Exam Narrative Exam: decreased LE edema, foot warm, patient comfortable - Constitutional Vitals: Vital Signs - 12hr 08/20/17 08/20/17 08/20/17 04:00 04:24 09:02 Temperature 98.2 F 98.6 F Pulse Rate 73 60 74 Respiratory 18 18 Rate Blood Pressure 98/50 98/54 O2 Sat by Pulse 97 95 Oximetry 08/20/17 10:00 Temperature Pulse Rate 65 Respiratory Rate Blood Pressure O2 Sat by Pulse Oximetry - Labs CBC & Chem 7: 08/19/17 05:43 08/19/17 05:43 Labs: Abnormal lab results 08/20/17 Range/Units 08:34 Heparin Anti-Xa Level 0.16 L (0.3-0.7) U.I./ml
--- NOTE | 2017-08-20 12:26 | Progress Note ---
Assessment and Plan Assessment and plan: 52 year-old man presented to ED with L ankle swelling for 4 days prior to admission along with wound drainage from L leg. Superficial femoral artery occlusion Occlusion of the grafts in his left leg Continue heparin drip, monitor serial hemoglobin, Vascular consulted Procedure planned for monday-percutaneous mechanical thrombectomy of the graft on Monday Cellulitis of the left lower extremity Continue abx, wound care consulted, follow wound cultures wound culture showing multiple organism. ?contaminate continue abx for now. Hyperlipidemia Continue gemfibrozil and statin therapy Mild malnutrition Nutrition consult Tobacco/Nicotin dependance Counselling greater than 15 mins on need and benefits of cessation and risk associated with continuation; Patient verbalized understanding. DVT prophylaxis History Interval history: Patient seen and exam, no new complaints. tolerating heparin drip. no noted bleeding. some pain noted in lower ext but improved since admission. now 06/17. Hospitalist Physical - Physical exam Narrative exam: General appearance: Present: no acute distress, well-nourished - EENT Eyes: Present: PERRL, EOM intact ENT: hearing intact, clear oral mucosa - Neck Neck: Present: supple, normal ROM - Respiratory Respiratory effort: normal Respiratory: bilateral: CTA - Cardiovascular Rhythm: regular Heart Sounds: Present: S1 & S2 - Extremities Extremities: no ischemia, No edema, normal temperature, normal color Extremity abnormal: other (LLE bandaged). Trendy pulses - Abdominal General gastrointestinal: soft, non-tender, non-distended - Integumentary Integumentary: Present: clear, warm, dry - Psychiatric Psychiatric: appropriate mood/affect, intact judgment & insight, cooperative - Neurologic Neurologic: CNII-XII intact, moves all extremities - Constitutional Vitals: Temp Pulse Resp BP Pulse Ox 98.6 F 65 18 98/54 95 08/20/17 09:02 08/20/17 10:00 08/20/17 09:02 08/20/17 09:02 08/20/17 09:02 General appearance: Present: no acute distress Results - Labs CBC & Chem 7: 08/19/17 05:43 08/19/17 05:43 Labs: Laboratory Last Values WBC 5.5 K/mm3 (4.5-11.0) 08/19/17 05:43 RBC 3.38 M/mm3 (3.65-5.03) L 08/19/17 05:43 Hgb 10.1 gm/dl (11.8-15.2) L 08/19/17 05:43 Hct 30.0 % (35.5-45.6) L 08/19/17 05:43 MCV 89 fl (84-94) 08/19/17 05:43 MCH 30 pg (28-32) 08/19/17 05:43 MCHC 34 % (32-34) 08/19/17 05:43 RDW 16.6 % (13.2-15.2) H 08/19/17 05:43 Plt Count 291 K/mm3 (140-440) 08/19/17 05:43 Lymph % (Auto) 25.7 % (13.4-35.0) 08/19/17 05:43 [place] % (Auto) 13.8 % (0.0-7.3) H 08/19/17 05:43 Eos % (Auto) 1.3 % (0.0-4.3) 08/19/17 05:43 Baso % (Auto) 1.3 % (0.0-1.8) 08/19/17 05:43 Lymph # 1.4 K/mm3 (1.2-5.4) 08/19/17 05:43 [place] # 0.8 K/mm3 (0.0-0.8) 08/19/17 05:43 Eos # 0.1 K/mm3 (0.0-0.4) 08/19/17 05:43 Baso # 0.1 K/mm3 (0.0-0.1) 08/19/17 05:43 Seg Neutrophils % 57.9 % (40.0-70.0) 08/19/17 05:43 Seg Neutrophils # 3.2 K/mm3 (1.8-7.7) 08/19/17 05:43 PT 15.2 Sec. (12.2-14.9) H 08/18/17 01:41 INR 1.14 (0.87-1.13) H 08/18/17 01:41 APTT 39.3 Sec. (24.2-36.6) H 08/18/17 01:41 Heparin Anti-Xa Level 0.16 U.I./ml (0.3-0.7) L 08/20/17 08:34 Sodium 134 mmol/L (137-145) L 08/19/17 05:43 Potassium 4.1 mmol/L (3.6-5.0) 08/19/17 05:43 Chloride 98.0 mmol/L (98-107) 08/19/17 05:43 Carbon Dioxide 25 mmol/L (22-30) 08/19/17 05:43 Anion Gap 15 mmol/L 08/19/17 05:43 BUN 9 mg/dL (9-20) 08/19/17 05:43 Creatinine 0.8 mg/dL (0.8-1.5) 08/19/17 05:43 Estimated GFR > 60 ml/min 08/19/17 05:43 BUN/Creatinine Ratio 11 % 08/19/17 05:43 Glucose 117 mg/dL (75-100) H 08/19/17 05:43 Calcium 8.7 mg/dL (8.4-10.2) 08/19/17 05:43 Total Bilirubin < 0.20 mg/dL (0.1-1.2) 08/17/17 20:59 AST 31 units/L (5-40) 08/17/17 20:59 ALT 56 units/L (7-56) 08/17/17 20:59 Alkaline Phosphatase 91 units/L (35-129) 08/17/17 20:59 Total Protein 8.2 g/dL (6.3-8.2) 08/17/17 20:59 Albumin 3.3 g/dL (3.9-5) L 08/17/17 20:59 Albumin/Globulin Ratio 0.7 % 08/17/17 20:59
[2017-08-20] MEDS ORDERED: HEPARIN 10,000 UNITS/10 ML IV ONE ×2 (18:00→18:09)
[2017-08-21] MEDS: PERCOCET 5/325 PO PRN ×2 (02:52→19:48)
[2017-08-21] MEDS: VANCOMYCIN/0.45 NS 1 GM/250 ML 1 GM/250 ML BAG IV SCH ×3 (03:00→22:04)
[2017-08-21] MEDS: ZOSYN/NS 3.375GM/50ML 3.375 GM/50 ML BAG IV SCH ×3 (05:06→20:01)
[2017-08-21] MEDS: LOPID PO SCH ×2 (11:30→22:03)
[2017-08-21] MEDS: PLAVIX PO SCH (11:31)
[2017-08-21] MEDS ORDERED: HEPARIN/NS 5000 UNIT/500ML(CATH LAB) 1,000 ML IR ONE (13:46)
[2017-08-21] MEDS ORDERED: SUBLIMAZE ONE (13:47)
[2017-08-21] MEDS ORDERED: VERSED ONE (13:47)
[2017-08-21] MEDS ORDERED: XYLOCAINE 2% INFILTRATI ONE ×2 (13:48→15:51)
[2017-08-21] MEDS: NACL 0.45% IV SCH (13:50)
[2017-08-21] MEDS: HEPARIN IV SCH (13:50)
[2017-08-21] MEDS ORDERED: NACL 0.9% 500 ML 500 ML ONE (14:12)
[2017-08-21] MEDS ORDERED: BENADRYL ONE (14:48)
[2017-08-21] MEDS: HEPARIN 10,000 UNITS/10 ML ONE ×4 (15:05→17:24)
[2017-08-21] MEDS: DILAUDID ONE ×3 (15:10→16:47)
[2017-08-21] MEDS: VERSED IV ONE ×5 (15:27→17:02)
[2017-08-21] MEDS: SUBLIMAZE ONE ×5 (15:27→17:02)
[2017-08-21] MEDS ORDERED: WATER FOR INJ (PF) 10 ML ONE (16:57)
[2017-08-21] MEDS ORDERED: NACL 0.9% 1000 ML 1,000 ML ONE (16:57)
[2017-08-21] MEDS ORDERED: CATHFLO ONE (16:58)
[2017-08-21] MEDS: NACL 0.9% 1000 ML 1,000 ML SHEATH SCH ×2 (17:30→18:13)
[2017-08-21] MEDS: HEPARIN/ 0.45% NACL-25,000 UNIT/500 ML 25,000 UNIT/500 ML BAG SHEATH SCH ×2 (17:30→18:13)
[2017-08-21] MEDS: CATHFLO 20 MG in NACL 0.9% 500 ML 500 ML EKOSDLUMEN SCH ×2 (17:30→18:13)
--- NOTE | 2017-08-21 17:42 | Post Operative Note ---
Date of procedure: 08/21/17 Pre-op diagnosis: PVD with Occluded Left Femoral To Tibial Bypass Graft Post-op diagnosis: same Procedure: 1. Ultrasound Guided Access Right Common 2. Diagnostic Left Lower Extremity Arteriogram 3. Ultrasound Guided Access Left Femoral to Tibial Artery Bypass Graft Retrograde Fashion 4. Angioplasty and Stenting of Left Femoral to Tibial Artery Bypass Graft With 5 x 200 Balloon with 5 x 100 [place] Stent in the Distal Graft and 6 x 150 Viabhan Stent Graft in the Proximal Graft 5. Thrombolysis of the Left Femoral to Tibial Artery Bypass Graft with Placement of a 106 x 50 EKOS Thrombolysis Catheter 6. Radiologic Supervision with Interpretation Anesthesia: local, other (IV sedation) Surgeon: BRITTNEY PETERSEN Estimated blood loss: minimal Pathology: none Condition: stable Disposition: ICU
[2017-08-21 17:49] LABS: INR 1.11 (0.87-1.13)
[2017-08-21 17:50] LABS: Partial Thromboplastin Time 48.1 Sec. (24.2-36.6)
[2017-08-21 17:59] LABS: BUN/Creatinine Ratio 13; Blood Urea Nitrogen 9 mg/dL (9-20); Calcium 9.5 mg/dL (8.4-10.2); Hemolysis Index 5
[2017-08-21] MEDS ORDERED: NACL 0.9% 1000 ML 1,000 ML EKOSCLUMEN SCH (18:00)
[2017-08-21] MEDS ORDERED: NACL 0.9% 1000 ML 1,000 ML IV SCH (18:00)
[2017-08-21] MEDS: SODIUM CHLORIDE FLUSH SYRINGE 10 ML IV SCH ×2 (18:29→21:50)
[2017-08-21 18:37] LABS: Platelet Count 311 K/mm3 (140-440)
--- NOTE | 2017-08-21 18:44 | Progress Note ---
Assessment and Plan Assessment and plan: 52 year-old man presented to ED with L ankle swelling for 4 days prior to admission along with wound drainage from L leg. Superficial femoral artery occlusion Occlusion of the grafts in his left leg Continue heparin drip, monitor serial hemoglobin, Vascular consulted Procedure planned for monday-percutaneous mechanical thrombectomy of the graft on today Cellulitis of the left lower extremity Continue abx, wound care consulted, follow wound cultures wound culture showing multiple organism. ?contaminate continue abx for now. Hyperlipidemia Continue gemfibrozil and statin therapy Mild malnutrition Nutrition consult Tobacco/Nicotin dependance Counselling greater than 15 mins on need and benefits of cessation and risk associated with continuation; Patient verbalized understanding. DVT prophylaxis Discussed with patient and family. Patient may be placed in the ICU post procedure. Family aware of such expectation. History Interval history: Patient seen and exam, no new complaints. tolerating heparin drip. no noted bleeding. Still with lower extremity pain. anxiously awaiting planned procedure Hospitalist Physical - Physical exam Narrative exam: General appearance: Present: no acute distress, well-nourished - EENT Eyes: Present: PERRL, EOM intact ENT: hearing intact, clear oral mucosa - Neck Neck: Present: supple, normal ROM - Respiratory Respiratory effort: normal Respiratory: bilateral: CTA - Cardiovascular Rhythm: regular Heart Sounds: Present: S1 & S2 - Extremities Extremities: no ischemia, No edema, normal temperature, normal color Extremity abnormal: other (LLE bandaged). Trendy pulses - Abdominal General gastrointestinal: soft, non-tender, non-distended - Integumentary Integumentary: Present: clear, warm, dry - Psychiatric Psychiatric: appropriate mood/affect, intact judgment & insight, cooperative - Neurologic Neurologic: CNII-XII intact, moves all extremities - Constitutional Vitals: Temp Pulse Resp BP Pulse Ox 98.7 F 21 L 16 121/71 98 08/21/17 18:00 08/21/17 16:55 08/21/17 16:55 08/21/17 11:55 08/21/17 16:55 General appearance: Present: no acute distress Results - Labs CBC & Chem 7: 08/21/17 17:05 08/21/17 17:05 Labs: Laboratory Last Values WBC 5.5 K/mm3 (4.5-11.0) 08/19/17 05:43 RBC 3.38 M/mm3 (3.65-5.03) L 08/19/17 05:43 Hgb 10.1 gm/dl (11.8-15.2) L 08/19/17 05:43 Hct 30.0 % (35.5-45.6) L 08/19/17 05:43 MCV 89 fl (84-94) 08/19/17 05:43 MCH 30 pg (28-32) 08/19/17 05:43 MCHC 34 % (32-34) 08/19/17 05:43 RDW 16.6 % (13.2-15.2) H 08/19/17 05:43 Plt Count 311 K/mm3 (140-440) 08/21/17 17:05 Lymph % (Auto) 25.7 % (13.4-35.0) 08/19/17 05:43 [place] % (Auto) 13.8 % (0.0-7.3) H 08/19/17 05:43 Eos % (Auto) 1.3 % (0.0-4.3) 08/19/17 05:43 Baso % (Auto) 1.3 % (0.0-1.8) 08/19/17 05:43 Lymph # 1.4 K/mm3 (1.2-5.4) 08/19/17 05:43 [place] # 0.8 K/mm3 (0.0-0.8) 08/19/17 05:43 Eos # 0.1 K/mm3 (0.0-0.4) 08/19/17 05:43 Baso # 0.1 K/mm3 (0.0-0.1) 08/19/17 05:43 Seg Neutrophils % 57.9 % (40.0-70.0) 08/19/17 05:43 Seg Neutrophils # 3.2 K/mm3 (1.8-7.7) 08/19/17 05:43 PT 14.9 Sec. (12.2-14.9) 08/21/17 17:05 INR 1.11 (0.87-1.13) 08/21/17 17:05 APTT 48.1 Sec. (24.2-36.6) H 08/21/17 17:05 Fibrinogen 994 mg/dl (211-480) H 08/21/17 17:05 Heparin Anti-Xa Level 0.43 U.I./ml (0.3-0.7) 08/21/17 17:05 Sodium 134 mmol/L (137-145) L 08/21/17 17:05 Potassium 4.3 mmol/L (3.6-5.0) 08/21/17 17:05 Chloride 97.2 mmol/L (98-107) L 08/21/17 17:05 Carbon Dioxide 20 mmol/L (22-30) L 08/21/17 17:05 Anion Gap 21 mmol/L 08/21/17 17:05 BUN 9 mg/dL (9-20) 08/21/17 17:05 Creatinine 0.7 mg/dL (0.8-1.5) L 08/21/17 17:05 Estimated GFR > 60 ml/min 08/21/17 17:05 BUN/Creatinine Ratio 13 % 08/21/17 17:05 Glucose 93 mg/dL (75-100) 08/21/17 17:05 Calcium 9.5 mg/dL (8.4-10.2) 08/21/17 17:05 Total Bilirubin < 0.20 mg/dL (0.1-1.2) 08/17/17 20:59 AST 31 units/L (5-40) 08/17/17 20:59 ALT 56 units/L (7-56) 08/17/17 20:59 Alkaline Phosphatase 91 units/L (35-129) 08/17/17 20:59 Total Protein 8.2 g/dL (6.3-8.2) 08/17/17 20:59 Albumin 3.3 g/dL (3.9-5) L 08/17/17 20:59 Albumin/Globulin Ratio 0.7 % 08/17/17 20:59
[2017-08-21] MEDS: MORPHINE IV PRN ×2 (18:48→23:11)
[2017-08-21 19:09] LABS: Basophils # (Auto) 0.1 K/mm3 (0.0-0.1); Basophils % (Auto) 0.7 % (0.0-1.8); Eosinophils # (Auto) 0.1 K/mm3 (0.0-0.4); Eosinophils % (Auto) 0.8 % (0.0-4.3); Hematocrit 34.5 % (35.5-45.6); Hemoglobin 11.4 gm/dl (11.8-15.2); Lymphocytes # (Auto) 2.1 K/mm3 (1.2-5.4); Lymphocytes % (Auto) 20.5 % (13.4-35.0); Mean Corpuscular HGB Conc 33 % (32-34); Mean Corpuscular Hemoglobin 30 pg (28-32); Mean Corpuscular Volume 90 fl (84-94); Monocytes # (Auto) 0.8 K/mm3 (0.0-0.8); Monocytes % (Auto) 7.8 % (0.0-7.3); Red Blood Count 3.85 M/mm3 (3.65-5.03); Red Cell Distribution Width 16.8 % (13.2-15.2)
[2017-08-21] MEDS ORDERED: DILAUDID IV PRN ×2 (19:30)
[2017-08-21] MEDS: DILAUDID IV PRN (19:50)
[2017-08-21 21:51] LABS: Basophils % (Auto) 0.4 % (0.0-1.8); Eosinophils # (Auto) 0.1 K/mm3 (0.0-0.4); Eosinophils % (Auto) 0.5 % (0.0-4.3); Hematocrit 33.4 % (35.5-45.6); Hemoglobin 11.2 gm/dl (11.8-15.2); Lymphocytes # (Auto) 1.6 K/mm3 (1.2-5.4); Lymphocytes % (Auto) 15.2 % (13.4-35.0); Mean Corpuscular HGB Conc 34 % (32-34); Mean Corpuscular Hemoglobin 30 pg (28-32); Mean Corpuscular Volume 89 fl (84-94); Monocytes # (Auto) 0.9 K/mm3 (0.0-0.8); Monocytes % (Auto) 8.2 % (0.0-7.3); Platelet Count 322 K/mm3 (140-440); Red Blood Count 3.76 M/mm3 (3.65-5.03); Red Cell Distribution Width 17.3 % (13.2-15.2)
[2017-08-21] MEDS: SODIUM CHLORIDE FLUSH SYRINGE 10 ML IV PRN (23:14)
[2017-08-22] MEDS: PERCOCET 5/325 PO PRN ×3 (00:27→23:52)
[2017-08-22] MEDS: DILAUDID IV PRN ×4 (00:28→20:55)
[2017-08-22] MEDS: SODIUM CHLORIDE FLUSH SYRINGE 10 ML IV PRN ×3 (00:29→04:34)
[2017-08-22] MEDS: ZOSYN/NS 3.375GM/50ML 3.375 GM/50 ML BAG IV SCH ×2 (01:06→05:40)
[2017-08-22] MEDS: MORPHINE IV PRN ×2 (03:37→11:17)
[2017-08-22] MEDS: VANCOMYCIN/0.45 NS 1 GM/250 ML 1 GM/250 ML BAG IV SCH (04:31)
[2017-08-22 04:52] LABS: Basophils % (Auto) 0.3 % (0.0-1.8); Eosinophils # (Auto) 0.1 K/mm3 (0.0-0.4); Eosinophils % (Auto) 0.5 % (0.0-4.3); Hematocrit 33.3 % (35.5-45.6); Hemoglobin 11.2 gm/dl (11.8-15.2); Lymphocytes # (Auto) 1.6 K/mm3 (1.2-5.4); Lymphocytes % (Auto) 15.3 % (13.4-35.0); Mean Corpuscular HGB Conc 34 % (32-34); Mean Corpuscular Hemoglobin 30 pg (28-32); Mean Corpuscular Volume 89 fl (84-94); Monocytes # (Auto) 0.9 K/mm3 (0.0-0.8); Monocytes % (Auto) 8.3 % (0.0-7.3); Platelet Count 327 K/mm3 (140-440); Red Blood Count 3.74 M/mm3 (3.65-5.03)
[2017-08-22 05:10] LABS: Heparin anti-factor XA 0.1 U.I./ml (0.3-0.7)
[2017-08-22 05:46] LABS: BUN/Creatinine Ratio 15; Blood Urea Nitrogen 12 mg/dL (9-20); Calcium 9.6 mg/dL (8.4-10.2); Hemolysis Index 6
[2017-08-22] MEDS: PLAVIX PO SCH (09:25)
[2017-08-22] MEDS: SODIUM CHLORIDE FLUSH SYRINGE 10 ML IV SCH ×2 (09:26→22:00)
[2017-08-22 10:23] LABS: Basophils # (Auto) 0.1 K/mm3 (0.0-0.1); Basophils % (Auto) 0.7 % (0.0-1.8); Eosinophils % (Auto) 0.4 % (0.0-4.3); Hematocrit 34.7 % (35.5-45.6); Hemoglobin 11.1 gm/dl (11.8-15.2); Lymphocytes # (Auto) 1.3 K/mm3 (1.2-5.4); Lymphocytes % (Auto) 11.4 % (13.4-35.0); Mean Corpuscular HGB Conc 32 % (32-34); Mean Corpuscular Hemoglobin 29 pg (28-32); Mean Corpuscular Volume 89 fl (84-94); Monocytes # (Auto) 0.8 K/mm3 (0.0-0.8); Monocytes % (Auto) 6.9 % (0.0-7.3); Platelet Count 324 K/mm3 (140-440); Red Blood Count 3.89 M/mm3 (3.65-5.03); Red Cell Distribution Width 16.6 % (13.2-15.2)
[2017-08-22 10:32] LABS: Heparin anti-factor XA 0.1 U.I./ml (0.3-0.7)
[2017-08-22] MEDS: LOPID PO SCH ×3 (11:18→23:52)
--- NOTE | 2017-08-22 11:42 | Consultation ---
History of Present Illness Consult date: 08/22/17 Requesting physician: LORENA BLAKE Reason for consult: other (Acute Angie Ischemia s/p EkOS directed thrombolysis) History of present illness: PULMONARY/CCM CONSULT NOTE (Full dictation # [id number]) Please see dictated notes for full details Past History Past Medical History: hyperlipidemia, PVD Past Surgical History: Other (left leg bypass 2, left leg fasciotomy, multiple left lower extremity endovascular procedures, right lower extremity vein harvest for left leg bypass) Social history: smoking Medications and Allergies Allergies Allergy/AdvReac Type Severity Reaction Status Date / Time No Known Allergies Allergy Verified 03/27/17 10:30 Home Medications Medication Instructions Recorded Confirmed Last Taken Type AtorvaSTATin [Lipitor] 20 mg PO QHS 01/27/17 08/20/17 03/27/17 History Clopidogrel [Plavix] 75 mg PO QDAY 01/27/17 08/20/17 03/28/17 05:00 History Gemfibrozil [Lopid] 600 mg PO BID 01/27/17 08/20/17 03/27/17 History Apixaban [Eliquis] 5 mg PO Q12HR #60 tablet 03/12/17 08/20/17 03/28/17 05:00 Rx HYDROcodone/APAP 5-325 [Borup 1 each PO Q6HR PRN #50 tablet 03/28/17 08/20/17 Unknown Rx 5-325 mg TAB] oxyCODONE /ACETAMINOPHEN [Percocet 1 tab PO Q6HR PRN 03/28/17 08/20/17 03/27/17 History 5/325 mg] Oxycodone HCl/Acetaminophen 1 each PO Q6HR PRN #15 tablet 05/27/17 08/20/17 Unknown Rx [Percocet 10/325 mg] Active Meds: Active Medications Acetaminophen (Tylenol) 650 mg PO Q4H PRN PRN Reason: Pain MILD(1-3)/Fever >100.5/HERNANDEZ Atorvastatin Calcium (Lipitor) 20 mg PO QHS [facility] Last Admin: 08/21/17 22:04 Dose: 20 mg Clopidogrel Bisulfate (Plavix) 75 mg PO QDAY [facility] Last Admin: 08/22/17 09:25 Dose: 75 mg Gemfibrozil (Lopid) 600 mg PO BID [facility] Last Admin: 08/22/17 11:18 Dose: Not Given Hydromorphone HCl (Dilaudid) 1 mg IV Q4H PRN PRN Reason: Pain , Severe (7-10) Last Admin: 08/22/17 08:23 Dose: 1 mg Heparin Sodium (Porcine) 25, (000 unit/ Sodium Chloride) 500 mls @ 23 mls/hr IV TITR KELLY; Protocol Last Admin: 08/21/17 13:50 Dose: 1,550 units/hr, 31 mls/hr Sodium Chloride (Nacl 0.9% 1000 Ml) 1,000 mls @ 30 mls/hr IV DIRECT KELLY Alteplase, Recombinant 20 mg/ (Sodium Chloride) 500 mls @ 25 mls/hr EKOSDLUMEN DIRECT KELLY Last Admin: 08/21/17 18:13 Dose: 0 mls Heparin Sodium/Sodium Chloride (Heparin/ 0.45% Nacl-25,000 Unit/500 Ml) 25,000 unit in 500 mls @ 10 mls/hr SHEATH DIRECT KELLY; Protocol Last Admin: 08/21/17 18:13 Dose: 0 mls Sodium Chloride (Nacl 0.9% 1000 Ml) 1,000 mls @ 30 mls/hr IV DIRECT KELLY Sodium Chloride (Nacl 0.9% 1000 Ml) 1,000 mls @ 30 mls/hr SHEATH DIRECT KELLY Last Admin: 08/21/17 18:13 Dose: 0 mls Sodium Chloride (Nacl 0.9% 1000 Ml) 1,000 mls @ 35 mls/hr EKOSCLUMEN DIRECT KELLY Morphine Sulfate (Morphine) 2 mg IV Q4H PRN PRN Reason: Pain, Moderate (4-6) Last Admin: 08/22/17 11:17 Dose: 2 mg Ondansetron HCl (Zofran) 4 mg IV Q8H PRN PRN Reason: Nausea And Vomiting Oxycodone/Acetaminophen (Percocet 5/325) 1 tab PO Q4H PRN PRN Reason: Pain, Moderate (4-6) Last Admin: 08/22/17 04:32 Dose: 1 tab Sodium Chloride (Sodium Chloride Flush Syringe 10 Ml) 10 ml IV BID KELLY Last Admin: 08/22/17 09:26 Dose: 10 ml Sodium Chloride (Sodium Chloride Flush Syringe 10 Ml) 10 ml IV PRN PRN PRN Reason: LINE FLUSH Last Admin: 08/22/17 04:34 Dose: 10 ml Physical Examination Vital signs: Vital Signs Temp Pulse Resp BP Pulse Ox 98.8 F 108 H 19 121/63 100 08/17/17 12:51 08/17/17 12:51 08/17/17 12:51 08/17/17 12:51 08/17/17 12:51 Results - Laboratory Findings CBC and BMP: 08/22/17 10:08 08/22/17 04:19 PT/INR, D-dimer PT 14.9 Sec. (12.2-14.9) 08/21/17 17:05 INR 1.11 (0.87-1.13) 08/21/17 17:05 Abnormal lab findings: Abnormal Labs 08/17/17 08/17/17 08/18/17 20:59 20:59 01:41 WBC RBC Hgb 10.7 L Hct 33.4 L RDW 16.9 H Lymph % (Auto) Milam % (Auto) 9.2 H Milam # 0.9 H Seg Neutrophils % Seg Neutrophils # PT 15.2 H INR 1.14 H APTT 39.3 H Fibrinogen Heparin Anti-Xa Level Sodium 136 L Potassium Chloride 95.7 L Carbon Dioxide Creatinine Glucose 102 H Albumin 3.3 L 08/19/17 08/19/17 08/19/17 05:43 05:43 09:57 WBC RBC 3.38 L Hgb 10.1 L Hct 30.0 L RDW 16.6 H Lymph % (Auto) Milam % (Auto) 13.8 H Milam # Seg Neutrophils % Seg Neutrophils # PT INR APTT Fibrinogen Heparin Anti-Xa Level 0.14 L Sodium 134 L Potassium Chloride Carbon Dioxide Creatinine Glucose 117 H Albumin 08/20/17 08/20/17 08/20/17 08:34 16:15 23:17 WBC RBC Hgb Hct RDW Lymph % (Auto) Milam % (Auto) Milam # Seg Neutrophils % Seg Neutrophils # PT INR APTT Fibrinogen Heparin Anti-Xa Level 0.16 L < 0.10 L 0.27 L Sodium Potassium Chloride Carbon Dioxide Creatinine Glucose Albumin 08/21/17 08/21/17 08/21/17 17:05 17:05 17:05 WBC RBC Hgb 11.4 L Hct 34.5 L RDW 16.8 H Lymph % (Auto) Milam % (Auto) 7.8 H Milam # Seg Neutrophils % 70.2 H Seg Neutrophils # PT INR APTT 48.1 H Fibrinogen 994 H Heparin Anti-Xa Level Sodium 134 L Potassium Chloride 97.2 L Carbon Dioxide 20 L Creatinine 0.7 L Glucose Albumin 08/21/17 08/22/17 08/22/17 21:40 04:19 04:19 WBC RBC Hgb 11.2 L 11.2 L Hct 33.4 L 33.3 L RDW 17.3 H 17.0 H Lymph % (Auto) Milam % (Auto) 8.2 H 8.3 H Milam # 0.9 H 0.9 H Seg Neutrophils % 75.7 H 75.6 H Seg Neutrophils # 8.1 H 8.1 H PT INR APTT Fibrinogen 923 H Heparin Anti-Xa Level 0.10 L Sodium Potassium Chloride Carbon Dioxide Creatinine Glucose Albumin 08/22/17 08/22/17 08/22/17 04:19 10:08 10:08 WBC 11.2 H RBC Hgb 11.1 L Hct 34.7 L RDW 16.6 H Lymph % (Auto) 11.4 L Milam % (Auto) Milam # Seg Neutrophils % 80.6 H Seg Neutrophils # 9.1 H PT INR APTT Fibrinogen 798 H Heparin Anti-Xa Level 0.10 L Sodium 136 L Potassium 5.5 H D Chloride 96.9 L Carbon Dioxide Creatinine Glucose Albumin
--- NOTE | 2017-08-22 12:10 | Operative Report ---
Operative Report Operative Report: Date of Procedure: 08/21/2017 Pre-operative Diagnosis: PVD with Ulceration And Occlusion of Left Femoral to Tibial Artery Bypass Graft Post-operative Diagnosis: Same Procedure(s): 1. Ultrasound Guided Access Right Common 2. Diagnostic Left Lower Extremity Arteriogram 3. Ultrasound Guided Access Left Femoral to Tibial Artery Bypass Graft Retrograde Fashion 4. Angioplasty and Stenting of Left Femoral to Tibial Artery Bypass Graft With 5 x 200 Balloon with 5 x 100 Tigris Stent in the Distal Graft and 6 x 150 Viabhan Stent Graft in the Proximal Graft 5. Thrombolysis of the Left Femoral to Tibial Artery Bypass Graft with Placement of a 106 x 50 EKOS Thrombolysis Catheter 6. Radiologic Supervision with Interpretation Surgeon: Josemanuel Deng M.D. 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 He has had multiple bypasses of the left lower extremity with occlusion of his most recent bypass and multiple interventions with thrombolysis. He presented with complaints of swelling and pain of the left lower extremity and a CTA revealing reocclusion of the left femoral to tibial artery bypass graft. He has a large open wound in the left lower extremity and requires revascularization of left leg for healing. He was given the risk, benefits, and alternative procedures and consented to the procedure. Angiographic Findings: The diagnostic aortogram revealed the aorta was widely patent without any evidence of aneurysm or stenosis. The left common iliac artery was slightly aneurysmal. The right common iliac artery appeared normal in appearance. The right external iliac artery appeared stenotic with approximately 50% stenosis throughout its entire course. The left external iliac artery appear widely patent. The left common femoral artery and profunda were widely patent. The left SFA and popliteal artery were completely occluded. The left femoral artery to tibial artery bypass graft was completely occluded. The left anterior tibial artery filled through collaterals from the profunda and was patent throughout its course and continued into the foot as a dorsalis pedis artery. The tibioperoneal trunk as well as the peroneal artery and posterior tibial arteries were occluded throughout their course. 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 After accessing the Viabahn Stent in retrograde fashion and eventually advancing my catheter through the graft and antegrade fashion it appeared that the reason for graft failure was a crushed coronary stent in the distal graft. This was eventually relined with a self-expanding stent without residual stenosis. The thrombolysis catheter was then placed with the proximal tip at the origin of the graft and the distal tip in the proximal anterior tibial artery. Description of Procedure: The patient was brought to the laboratory monitor and laid in supine position. After he was adequately sedated his right groin was prepped and draped in normal sterile fashion. Ultrasound was used to identify the right common femoral artery and confirmed patency. Once patency he was confirmed the overlying skin and soft tissue was anesthetized with lidocaine. A small stab incision was created and then a hemostat was used to bluntly dissect down to the anterior surface of the artery under ultrasound guidance. A micropuncture needle was used under ultrasound guidance to enter the anterior surface of the right common femoral artery and a 0.018 wire was advanced under fluoroscopy. The micropuncture sheath was then placed by Seldinger technique and the wire and inner cannula were removed. A 0.035 Bentson wire was advanced under fluoroscopy into the aorta and the micropuncture sheath was exchanged for a 5 Vietnamese sheath by Seldinger technique. An Omni Flush catheter was advanced into the aorta and an aortogram was performed. The Omni Flush catheter and Bentson wire were advanced over the bifurcation and the left lower extremity arteriogram was performed with the previously described findings. The Bentson wire was advanced into the profunda and 6 Vietnamese 45 cm destination sheath was advanced up and over the bifurcation into the common femoral artery. At this point the patient was systemically heparinized with heparin IV and this was redosed every 45 minutes. I was able to identify the stump of the bypass graft and used a combination of catheters and wires and attempted to cannulate the graft without success. At this point I prepped the patient's left thigh was able to identify the bypass graft in the mid thigh. I used ultrasound to identify the Viabahn Stent Graft in the mid thigh and anesthetized the skin and overlying soft tissue. I used the micropuncture needle with ultrasound guidance to access to 5 by stent graft within the bypass graft in retrograde fashion. I passed a 0.018 wire into the stent under fluoroscopy and then advanced the micropuncture sheath by Seldinger technique. I removed the wire and any cannula and advanced a 0.018 V18 wire to the proximal portion of the graft. I removed the micropuncture sheath and advanced a Navicross catheter over the wire and exchanged the V18 for a 0.035 Advantage wire. I was able to traverse the occlusion of the proximal graft and into the external iliac artery which was confirmed by arteriogram. I passed a snare through the sheath and grabbed the wire and pulled it out through the right common femoral artery. I then advanced the Navicross catheter over the wire, in antegrade fashion, and was able to traverse the occluded areas of the bypass until I reached the below knee segment and encountered a crushed stent. The wire was able to be advanced pass the stent and into the anterior tibial artery, however the catheter wound not advance. Eventually I was able to advance a 0.014 Choice PT, across the crusshed stent and into the Anterior Tibial Artery. I was able to track a 4 x 100 Kaleva balloon across the area and dilate the lesion. I exchanged the wire for a 0.035 Advantage wire and then relined the stent with a 5 x 100 Tigis self- expanding stent. I postdilated the stent and the entire vein graft with a 5 x 200 balloon. Arteriography demonstrated chronic thrombus within the distal portions of the graft and an area of perforation in the proximal graft. I placed a 6 x 150 Viabahn Stent Graft across the area of perforation, which also cover the area in which I accessed the Viabahn in the mid thigh. I then placed the EKOS sheath with the proximal tip at the proximal anastamosis of the bypass graft and the distal tip in the proximal anterior tibial artery. I advanced the ultrasound wire into the sheath and the primed the drug port with 6 mg of TPA and the coolant port with 2000 units of heparin. The sheath was secured in place with a 0 silk suture. The patient tolerated the procedure well. All sponge, needle, and instrument counts were correct. The patient was taken to the ICU in stable condition.
[2017-08-22] MEDS: PEPCID PO SCH (13:43)
[2017-08-22] MEDS ORDERED: KIONEX PO ONE (14:00)
[2017-08-22] MEDS ORDERED: HEPARIN/NS 5000 UNIT/500ML(CATH LAB) 1,000 ML IR ONE (15:49)
[2017-08-22] MEDS ORDERED: SUBLIMAZE ONE ×2 (15:50→16:52)
[2017-08-22] MEDS ORDERED: NACL 0.9% 500 ML 500 ML ONE (15:50)
[2017-08-22] MEDS ORDERED: ANCEF/STERILE WATER 2 GM/20 ML 2 GM/20 ML SYRINGE IV ONE (16:06)
[2017-08-22] MEDS: VERSED ONE ×2 (16:11→16:28)
[2017-08-22] MEDS: SUBLIMAZE ONE ×4 (16:11→17:21)
[2017-08-22] MEDS: XYLOCAINE 2% INFILTRATI ONE ×2 (16:13→16:28)
[2017-08-22] MEDS ORDERED: DILAUDID ONE (16:28)
[2017-08-22] MEDS ORDERED: CATHFLO ONE (16:28)
[2017-08-22] MEDS: HEPARIN 10,000 UNITS/10 ML ONE ×2 (16:30→17:20)
[2017-08-22] MEDS: VERSED IV ONE ×4 (16:39→17:21)
[2017-08-22] MEDS ORDERED: HEPARIN/NS 5000 UNIT/500ML(CATH LAB) 500 ML IR ONE (16:47)
[2017-08-22] MEDS ORDERED: VERSED IV ONE (17:33)
[2017-08-22] MEDS ORDERED: NITROGLYCERIN SYRINGE 3 ML ONE (17:35)
--- NOTE | 2017-08-22 18:18 | Post Operative Note ---
Date of procedure: 08/22/17 Pre-op diagnosis: PVD with Thrombosis of Left Femoral to Tibial Bypass Graft s/ p Throbolysis Post-op diagnosis: same Procedure: 1. Removal of EKOS Thrombolysis Catheter 2. Percutaneous Mechanical Thrombectomy of Left Femoral to Tibial Bypass Graft with Angiojet Catheter 3. Percutaneous Mechanical Thrombectomy of Left Anterior Tibial Artery with Angiojet Catheter 4. Angioplasty and Stent of Left Femoral to Tibial Bypass Graft with 6 x 200 Balloon and 6 x 10 cm Viabahn Stent Graft in the Mid Graft and 7 x 15 cm Viabahn Stent Graft in the Proximal Graft 5. Angioplasty of Left Anterior Tibial Artery and Dorsalis Pedis Artery with 2.5 x 150 Balloon 6. Angioplasty of Left Posterior Tibial Artery with Tapered 3.0-2.5 x 220 Nanocross Balloon 7. Closure of Right Arteriotomy with ProGlide and 6 Fr Angioseal 8. Radiologic Supervision with Interpretation Anesthesia: local, other (IV Sedation) Surgeon: BRITTNEY PETERSEN Estimated blood loss: minimal Pathology: none Condition: stable Disposition: ICU
--- NOTE | 2017-08-22 18:20 | Operative Report ---
Operative Report Operative Report: Date of Procedure: 08/22/2017 Pre-operative Diagnosis: PVD with Ulceration And Occlusion of Left Femoral to Tibial Artery Bypass Graft s/p Thrombolysis Post-operative Diagnosis: Same Procedure(s): 1. Removal of EKOS Thrombolysis Catheter 2. Percutaneous Mechanical Thrombectomy of Left Femoral to Tibial Bypass Graft with Angiojet Catheter 3. Percutaneous Mechanical Thrombectomy of Left Anterior Tibial Artery with Angiojet Catheter 4. Angioplasty and Stent of Left Femoral to Tibial Bypass Graft with 6 x 200 Balloon and 6 x 10 cm Viabahn Stent Graft in the Mid Graft and 7 x 15 cm Viabahn Stent Graft in the Proximal Graft 5. Angioplasty of Left Anterior Tibial Artery and Dorsalis Pedis Artery with 2.5 x 150 Balloon 6. Angioplasty of Left Posterior Tibial Artery with Tapered 3.0-2.5 x 220 Nanocross Balloon 7. Closure of Right Arteriotomy with ProGlide and 6 Fr Angioseal 8. Radiologic Supervision with Interpretation Surgeon: Josemanuel Deng M.D. Healthcare Network Consultant: None Anesthesia: Local and IV sedation EBL: Minimal Counts: Correct Complications: None Condition: Stable Specimen: None Indication: The patient is a 52-year-old male who is status post thrombolysis of a left femoral to tibial artery bypass graft. He is returning to the catheter lab for removal of thrombolysis catheter and further intervention as needed. He was given the risk, benefits, and alternative procedures and has consented to the procedure. Angiographic Findings: The follow-up arteriogram demonstrated extravasation of contrast from a perforation in the distal bypass graft just proximal to the previously placed Tigris stent. The mid portion of the bypass graft is stenotic. The proximal portion of the bypass graft has residual thrombus and a residual stenosis of approximately 60%. The anterior tibial artery has thrombus throughout its course and the dorsalis pedis artery appears to have some problems with approximately 50% stenosis. The origin of the tibioperoneal trunk appears to be patent. The peroneal artery appears to reconstitute distally through collaterals. The posterior tibial artery remains occluded throughout its course proximally however it does appear to reconstitute in the plantar arch. After intervention the bypass graft is patent with less than 20% residual stenosis and no residual thrombus throughout its course. The anterior tibial artery is patent with minimal residual thrombus. The dorsalis pedis artery has minimal thrombus. The posterior tibial artery is patent throughout its course with less than 15% residual stenosis. Description of Procedure: The patient was brought to the catheter lab and laid in supine position. After he was adequately sedated his right groin and indwelling sheath and catheters were prepped and draped in normal sterile fashion. The ultrasound catheter was removed from the EKOS sheath and an arteriogram was performed with the previously described findings. The patient was then systemically heparinized with 5000 units heparin IV. A 0.018 V18 wire was advanced down into the anterior tibial artery and then down into the dorsalis pedis artery. A Navicross catheter was advanced over the V18 wire and into the dorsalis pedis artery. A total of 10 mg of TPA was used to lase the dorsalis pedis artery and anterior tibial artery to lyse the thrombus within the arteries. I then placed the 6 x 10 cm Viabahn Stent Graft extending from the previously placed Tigris stent overlapping into a Viabahn Stent Graft in the mid bypass graft. I then used an AngioJet catheter to perform percutaneous mechanical thrombectomy of the entire bypass graft as well as advancing this into the proximal and mid anterior tibial artery to remove thrombus from these vessels. This was followed by placing a 7 x 15 cm Viabahn Stent Graft placed in the proximal bypass graft that extended from the Viabahn Stent Graft in the mid bypass graft up to the origin of the bypass graft. I postdilated the stent grafts with a 6 x 200 balloon. The follow-up arteriogram demonstrated no residual thrombus within the bypass graft and less than 20% residual stenosis within the graft. Additionally there was minimal residual thrombus within the anterior tibial artery however there appeared to be stenosis within the dorsalis pedis artery. I advanced a 2.5 x 150 balloon into the distal anterior tibial artery and dorsalis pedis artery and performed angioplasty with a result of less than 10% residual stenosis. I then reinserted the Navicross catheter and was able to advanced the V18 wire through the interstices of the stents and into the remnant of the tibioperoneal trunk. I was able to cannulate the occluded posterior tibial artery and traversed the entire occluded vessel and reentered the posterior tibial artery in the foot, which was confirmed by arteriogram. I advanced a 0.014 Choice PT wire and performed angioplasty with a 3.0-2.5 x 220 Nanocross Balloon. The follow up result was a patent artery with less than 15% residual stenosis. I removed all balloons and wires and pulled the sheath back into the right external iliac artery. I advanced a 0.035 J-wire into the aorta and used a ProGlide closure device to close the right femoral arteriotomy. This provided partial hemostasis so I used a 6 [place] Angio-Seal for closure. This provided complete hemostasis. The patient tolerated the procedure well. All sponge, needle, and instrument counts were correct. The patient was taken back to the ICU in stable condition.
[2017-08-22] MEDS ORDERED: LOVENOX SUB-Q ONE (18:32)
--- NOTE | 2017-08-22 21:24 | Progress Note ---
Assessment and Plan Assessment and plan: 52 year-old man presented to ED with L ankle swelling for 4 days prior to admission along with wound drainage from L leg. Superficial femoral artery occlusion Occlusion of the grafts in his left leg s/p : PVD with Ulceration And Occlusion of Left Femoral to Tibial Artery Bypass Graft s/p Thrombolysis On EKOS system Cellulitis of the left lower extremity Continue abx, wound care consulted, follow wound cultures wound culture showing multiple organism. ?contaminate continue abx for now. Hyperlipidemia Continue gemfibrozil and statin therapy Mild malnutrition Nutrition consult Tobacco/Nicotin dependance Counselling greater than 15 mins on need and benefits of cessation and risk associated with continuation; Patient verbalized understanding. DVT prophylaxis Discussed with patient and family. Transfer to Tele History Interval history: Patient seen and exam, no new complaints. on EKOS system. no noted bleeding. s/ p : PVD with Ulceration And Occlusion of Left Femoral to Tibial Artery Bypass Graft s/p Thrombolysis. reportedly had a good night Hospitalist Physical - Physical exam Narrative exam: General appearance: Present: no acute distress, well-nourished - EENT Eyes: Present: PERRL, EOM intact ENT: hearing intact, clear oral mucosa - Neck Neck: Present: supple, normal ROM - Respiratory Respiratory effort: normal Respiratory: bilateral: CTA - Cardiovascular Rhythm: regular Heart Sounds: Present: S1 & S2 - Extremities Extremities: no ischemia, No edema, normal temperature, normal color Extremity abnormal: other (LLE bandaged). noted pulses - Abdominal General gastrointestinal: soft, non-tender, non-distended - Integumentary Integumentary: Present: clear, warm, dry - Psychiatric Psychiatric: appropriate mood/affect, intact judgment & insight, cooperative - Neurologic Neurologic: CNII-XII intact, moves all extremities - Constitutional Vitals: Temp Pulse Resp BP Pulse Ox 100.2 F H 106 H 14 126/65 96 08/22/17 19:49 08/22/17 18:30 08/22/17 18:30 08/22/17 18:30 08/22/17 18:30 General appearance: Present: no acute distress Results - Labs CBC & Chem 7: 08/23/17 02:35 08/23/17 02:35 Labs: Laboratory Last Values WBC 11.2 K/mm3 (4.5-11.0) H 08/22/17 10:08 RBC 3.89 M/mm3 (3.65-5.03) 08/22/17 10:08 Hgb 11.1 gm/dl (11.8-15.2) L 08/22/17 10:08 Hct 34.7 % (35.5-45.6) L 08/22/17 10:08 MCV 89 fl (84-94) 08/22/17 10:08 MCH 29 pg (28-32) 08/22/17 10:08 MCHC 32 % (32-34) 08/22/17 10:08 RDW 16.6 % (13.2-15.2) H 08/22/17 10:08 Plt Count 324 K/mm3 (140-440) 08/22/17 10:08 Lymph % (Auto) 11.4 % (13.4-35.0) L 08/22/17 10:08 Wayne % (Auto) 6.9 % (0.0-7.3) 08/22/17 10:08 Eos % (Auto) 0.4 % (0.0-4.3) 08/22/17 10:08 Baso % (Auto) 0.7 % (0.0-1.8) 08/22/17 10:08 Lymph # 1.3 K/mm3 (1.2-5.4) 08/22/17 10:08 Wayne # 0.8 K/mm3 (0.0-0.8) 08/22/17 10:08 Eos # 0.0 K/mm3 (0.0-0.4) 08/22/17 10:08 Baso # 0.1 K/mm3 (0.0-0.1) 08/22/17 10:08 Seg Neutrophils % 80.6 % (40.0-70.0) H 08/22/17 10:08 Seg Neutrophils # 9.1 K/mm3 (1.8-7.7) H 08/22/17 10:08 PT 14.9 Sec. (12.2-14.9) 08/21/17 17:05 INR 1.11 (0.87-1.13) 08/21/17 17:05 APTT 48.1 Sec. (24.2-36.6) H 08/21/17 17:05 Fibrinogen 798 mg/dl (211-480) H 08/22/17 10:08 Heparin Anti-Xa Level 0.10 U.I./ml (0.3-0.7) L 08/22/17 10:08 Sodium 136 mmol/L (137-145) L 08/22/17 04:19 Potassium 5.5 mmol/L (3.6-5.0) H D 08/22/17 04:19 Chloride 96.9 mmol/L (98-107) L 08/22/17 04:19 Carbon Dioxide 24 mmol/L (22-30) 08/22/17 04:19 Anion Gap 21 mmol/L 08/22/17 04:19 BUN 12 mg/dL (9-20) 08/22/17 04:19 Creatinine 0.8 mg/dL (0.8-1.5) 08/22/17 04:19 Estimated GFR > 60 ml/min 08/22/17 04:19 BUN/Creatinine Ratio 15 % 08/22/17 04:19 Glucose 99 mg/dL (75-100) 08/22/17 04:19 Calcium 9.6 mg/dL (8.4-10.2) 08/22/17 04:19 Total Bilirubin < 0.20 mg/dL (0.1-1.2) 08/17/17 20:59 AST 31 units/L (5-40) 08/17/17 20:59 ALT 56 units/L (7-56) 08/17/17 20:59 Alkaline Phosphatase 91 units/L (35-129) 08/17/17 20:59 Total Protein 8.2 g/dL (6.3-8.2) 08/17/17 20:59 Albumin 3.3 g/dL (3.9-5) L 08/17/17 20:59 Albumin/Globulin Ratio 0.7 % 08/17/17 20:59
[2017-08-22] MEDS ORDERED: LOVENOX SUB-Q STA (23:22)
[2017-08-22] MEDS: ELIQUIS PO SCH (23:52)
[2017-08-22] MEDS: ZOSYN/NS 4.5GM/100ML 4.5 GM/100 ML VIAL IV SCH (23:56)
--- NOTE | 2017-08-23 00:01 | Consultation ---
CONSULTING PHYSICIAN: REASON FOR CONSULTATION: Need for ICU monitoring, status post EKOS catheter-directed thrombolytic therapy for an acute limb ischemia. CHIEF COMPLAINT AND HISTORY OF PRESENT ILLNESS: The patient is a 52-year-old male with past medical history significant amongst other things for, I believe peripheral vascular disease, history of popliteal artery bypass graft with clot removal in May that was complicated by compartment syndrome, who came into the Emergency Room complaining of increasing pain and discharge from his surgical site that was nonhealing I believe on the left leg. The left foot was swollen. He was evaluated in the Emergency Room and admitted for Vascular Surgery evaluation. He was seen in consult by Dr. Deng. After evaluation, a decision was made to attempt percutaneous mechanical thrombectomy on the graft. If it was not successful, these options were for revascularization felt to be limited. Conservative treatment initially with IV heparin and pain control over the weekend for the left lower extremity occluded femoral distal bypass was done and on Monday yesterday, he had an ultrasound-guided access of the right common femoral angioplasty and stenting of the left femoral to tibial artery bypass graft and thrombolysis of the left femoral to tibial artery bypass graft and placement of 106 x 50 EKOS catheter. Post-procedure, he was brought into the Intensive Care Unit when I stopped by to see him, he was resting in bed, remained on the EKOS catheter, still having some pain, but much better controlled. No nausea, vomiting, or overt aspiration. He does have a 10+ pack year tobacco smoking history, quit smoking about the time of admission. Really is as much of the history of presentation as I have. He denies any significant past medical history except for high blood pressure. 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 3. History of hypertension. PAST SURGICAL HISTORY: He has had right hip repair and fasciotomy of the left leg. He has also had vascular bypass surgery of his left lower extremity. MEDICATIONS: He was on at the time I stopped by to see him included the following: He was on alteplase TPA was going via the EKOS catheter. He was on Lipitor 20 mg p.o. at bedtime, Plavix 75 mg p.o. daily, Lopid 600 mg p.o. b.i.d., IV heparin per protocol drip was also given, Zofran 4 mg IV q.8 hours p.r.n. nausea and vomiting, Percocet 5/325 one tablet p.o. q.4 hours p.r.n. moderate pain. ALLERGIES: No known drug allergies. DIET: Well-built gentleman, no significant weight loss or gain preceding few weeks to months as far as I can tell. FAMILY AND SOCIAL HISTORY: Apparently lives in the community, has a 10+ pack year tobacco smoking history, alcohol or illicit drug use or abuse history denied. REVIEW OF SYSTEMS: He denies any acute chest pain, no palpitations, no shortness of breath. He has the left lower extremity pain. Records indicate no gross hematochezia or melena, no gross hematuria or dysuria. No hematemesis. No hemoptysis, no palpitations. Complete 13 review of systems obtained. Pertinent positives and/or negatives as in the body of history above, otherwise they are noncontributory. PHYSICAL EXAMINATION: VITAL SIGNS: On examination at presentation and since he has remained afebrile, presentation vitals: Temperature 98.8 degrees Fahrenheit with a pulse of 108, respiratory rate of 19, blood pressure 123/63, oxygen sats 100%, inspired oxygen concentration at that time was not recorded. As at the time I saw him, he remained afebrile, blood pressure was 124/68. O2 sats 98% on room air. GENERAL: Well-built male, normocephalic, atraumatic, talking to me in full sentences. No significant respiratory distress. HEAD, EYES, EARS, NOSE AND THROAT: He is anicteric. No conjunctival erythema. Oropharynx is moist. It is a Mallampati #2 oropharynx with some whitish exudate over his tongue. No gross jugular venous distention, no thyromegaly, no palpable lymph nodes in the supraclavicular or submandibular lymph node chains. LUNGS: Auscultation of both lung brambila unremarkable. Lungs are clear bilaterally. HEART: Heart sounds 1 and 2 are heard, regular rate and rhythm at the time of my evaluation. No rubs or murmurs. ABDOMEN: Soft, full, bowel sounds positive, and nontender. No gross palpable hepatosplenomegaly. EXTREMITIES: Without overt digital clubbing or cyanosis. He has a dressing to the left lower extremity over the old surgical wound site with mild bloody exudation around it. Both legs and feet were warm. Dorsalis pedis pulses are weakly palpable. NEUROLOGIC: Pupils are equal, round, about 3 to 4 mm, reactive to light. Extraocular muscle movements appeared intact. He moved all 4 extremities spontaneously. LABORATORY DATA: From my review are as follows: White cell count 11,200, hemoglobin 11.1, hematocrit 34.7, and platelet count 324,000. Heparin anti-Xa level 0.10. Serum sodium 136, potassium is 5.5, chloride 97, bicarbonate 24, BUN 12, creatinine 0.8, and glucose of 99. Microbiology of the wound culture grew Klebsiella, E. coli, Staph aureus, and E. faecalis that was essentially pansensitive. The white count at admission was also within normal limits. I do not have any radiographic studies for review. ASSESSMENT: 1. Acute limb ischemia secondary to occluded prior bypass graft. 2. Infected left lower extremity old surgical incision site. 3. History of high blood pressure. 4. Tobacco use disorder. 5. Anemia that is normocytic. 6. Peripheral vascular disease. 7. Hyperlipidemia. 8. Hyperkalemia. PLAN: We will observe him in the intensive care unit until EKOS catheter is removed and he is stable enough to be transferred from a vascular surgery standpoint and the risk of bleeding is reduced. I do not see that he is on any antibiotics at this time. His white count is normal; however, I do note that the cultures are growing. He may benefit from an Infectious Disease consult to see if he will benefit from anti-infective therapy. In the meantime, we will follow him closely. I will go ahead and give him some Kayexalate. I will give him about 15 g of Kayexalate. Repeat BMP in the morning. We will continue pain control with oral and as needed and intravenous analgesia. I will put him on gastrointestinal prophylaxis now, especially with him being on full anticoagulation. He will continue his chronic disease medications. Flu and pneumonia vaccination will be addressed per protocol. Hopefully, he does well and can be transferred out of the Intensive Care Unit, perhaps even as early as today. I have also discussed and we will further discuss tobacco cessation with him. Thank you very much for the consult . We will follow along and make further recommendations as picture progresses/becomes clearer. [facility]# [id number] TIKI/GARRY DOS SANTOS
[2017-08-23 03:02] LABS: Hematocrit 29.8 % (35.5-45.6); Hemoglobin 10.1 gm/dl (11.8-15.2); Mean Corpuscular HGB Conc 34 % (32-34); Mean Corpuscular Hemoglobin 30 pg (28-32); Mean Corpuscular Volume 88 fl (84-94); Platelet Count 267 K/mm3 (140-440); Red Cell Distribution Width 16.8 % (13.2-15.2)
[2017-08-23 03:20] LABS: Alanine Aminotransferase 22 units/L (7-56); Albumin 3.1 g/dL (3.9-5); BUN/Creatinine Ratio 14; Blood Urea Nitrogen 10 mg/dL (9-20); Hemolysis Index 1
[2017-08-23] MEDS: DILAUDID IV PRN ×3 (03:21→21:35)
[2017-08-23] MEDS: NACL 0.9% 1000 ML 1,000 ML IV SCH (03:24)
[2017-08-23] MEDS: ZOSYN/NS 4.5GM/100ML 4.5 GM/100 ML VIAL IV SCH ×3 (07:01→21:32)
[2017-08-23] MEDS: PERCOCET 5/325 PO PRN ×3 (07:04→18:42)
--- NOTE | 2017-08-23 07:44 | Progress Note ---
Assessment and Plan Assessment and plan: 52 year-old man presented to ED with L ankle swelling for 4 days prior to admission along with wound drainage from L leg. 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 Patient verbalized understanding of risk of continued tobacco use and non complaince to medical treatment to include but not limited to amputation. Cellulitis of the left lower extremity Doubt spesis. Elevated Lactate likely due to reperfusion Monitor WBC Continue abx, wound care consulted, follow wound cultures wound culture showing multiple organism. ?contaminate continue abx for now. Hyperlipidemia Continue gemfibrozil and statin therapy Mild malnutrition Nutrition consult Tobacco/Nicotin dependance Counselling greater than 15 mins on need and benefits of cessation and risk associated with continuation; Patient verbalized understanding. DVT prophylaxis Discussed with patient and family. History Interval history: Patient seen and exam, no new complaints. on EKOS system. no noted bleeding. s/ p : PVD with Ulceration And Occlusion of Left Femoral to Tibial Artery Bypass Graft s/p Thrombolysis. reportedly had a good night Hospitalist Physical - Physical exam Narrative exam: General appearance: Present: no acute distress, well-nourished - EENT Eyes: Present: PERRL, EOM intact ENT: hearing intact, clear oral mucosa - Neck Neck: Present: supple, normal ROM - Respiratory Respiratory effort: normal Respiratory: bilateral: CTA - Cardiovascular Rhythm: regular Heart Sounds: Present: S1 & S2 - Extremities Extremities: no ischemia, No edema, normal temperature, normal color Extremity abnormal: other (LLE bandaged). noted pulses - Abdominal General gastrointestinal: soft, non-tender, non-distended - Integumentary Integumentary: Present: clear, warm, dry - Psychiatric Psychiatric: appropriate mood/affect, intact judgment & insight, cooperative - Neurologic Neurologic: CNII-XII intact, moves all extremities - Constitutional Vitals: Temp Pulse Resp BP Pulse Ox 98.3 F 83 20 114/60 95 08/23/17 04:42 08/23/17 04:42 08/23/17 04:42 08/23/17 04:42 08/23/17 04:42 General appearance: Present: no acute distress Results - Labs CBC & Chem 7: 08/23/17 02:35 08/23/17 02:35 Labs: Laboratory Last Values WBC 12.5 K/mm3 (4.5-11.0) H 08/23/17 02:35 RBC 3.40 M/mm3 (3.65-5.03) L 08/23/17 02:35 Hgb 10.1 gm/dl (11.8-15.2) L 08/23/17 02:35 Hct 29.8 % (35.5-45.6) L 08/23/17 02:35 MCV 88 fl (84-94) 08/23/17 02:35 MCH 30 pg (28-32) 08/23/17 02:35 MCHC 34 % (32-34) 08/23/17 02:35 RDW 16.8 % (13.2-15.2) H 08/23/17 02:35 Plt Count 267 K/mm3 (140-440) 08/23/17 02:35 Lymph % (Auto) 11.4 % (13.4-35.0) L 08/22/17 10:08 [place] % (Auto) 6.9 % (0.0-7.3) 08/22/17 10:08 Eos % (Auto) 0.4 % (0.0-4.3) 08/22/17 10:08 Baso % (Auto) 0.7 % (0.0-1.8) 08/22/17 10:08 Lymph # 1.3 K/mm3 (1.2-5.4) 08/22/17 10:08 [place] # 0.8 K/mm3 (0.0-0.8) 08/22/17 10:08 Eos # 0.0 K/mm3 (0.0-0.4) 08/22/17 10:08 Baso # 0.1 K/mm3 (0.0-0.1) 08/22/17 10:08 Seg Neutrophils % 80.6 % (40.0-70.0) H 08/22/17 10:08 Seg Neutrophils # 9.1 K/mm3 (1.8-7.7) H 08/22/17 10:08 PT 14.9 Sec. (12.2-14.9) 08/21/17 17:05 INR 1.11 (0.87-1.13) 08/21/17 17:05 APTT 48.1 Sec. (24.2-36.6) H 08/21/17 17:05 Fibrinogen 798 mg/dl (211-480) H 08/22/17 10:08 Heparin Anti-Xa Level 0.10 U.I./ml (0.3-0.7) L 08/22/17 10:08 Sodium 131 mmol/L (137-145) L 08/23/17 02:35 Potassium 3.8 mmol/L (3.6-5.0) D 08/23/17 02:35 Chloride 93.9 mmol/L (98-107) L 08/23/17 02:35 Carbon Dioxide 22 mmol/L (22-30) 08/23/17 02:35 Anion Gap 19 mmol/L 08/23/17 02:35 BUN 10 mg/dL (9-20) 08/23/17 02:35 Creatinine 0.7 mg/dL (0.8-1.5) L 08/23/17 02:35 Estimated GFR > 60 ml/min 08/23/17 02:35 BUN/Creatinine Ratio 14 % 08/23/17 02:35 Glucose 115 mg/dL (75-100) H 08/23/17 02:35 Lactic Acid 1.20 mmol/L (0.7-2.0) 08/23/17 02:35 Calcium 9.0 mg/dL (8.4-10.2) 08/23/17 02:35 Total Bilirubin 0.30 mg/dL (0.1-1.2) 08/23/17 02:35 AST 15 units/L (5-40) 08/23/17 02:35 ALT 22 units/L (7-56) 08/23/17 02:35 Alkaline Phosphatase 71 units/L (35-129) 08/23/17 02:35 Total Protein 7.4 g/dL (6.3-8.2) 08/23/17 02:35 Albumin 3.1 g/dL (3.9-5) L 08/23/17 02:35 Albumin/Globulin Ratio 0.7 % 08/23/17 02:35
[2017-08-23] MEDS: PLAVIX PO SCH (09:44)
[2017-08-23] MEDS: PEPCID PO SCH (09:44)
[2017-08-23] MEDS: LOPID PO SCH ×2 (09:47→21:31)
[2017-08-23] MEDS: ELIQUIS PO SCH ×2 (09:47→21:31)
[2017-08-23] MEDS: SODIUM CHLORIDE FLUSH SYRINGE 10 ML IV SCH ×2 (13:30→21:36)
--- NOTE | 2017-08-23 14:36 | Progress Note ---
Assessment and Plan Patient will need to be evaluated with physical therapy and ambulated. Additionally, the patient will need evaluation for left foot drop. Subjective Date of service: 08/23/17 Principal diagnosis: left LE occluded fem distal bypass Interval history: Patient is status post patient status post revascularization of his left lower extremity. He is tender to palpation along the mid aspect of his left thigh and below his knee. His foot is warm with a palpable dorsalis pedis pulse. Patient has not yet ambulated significantly. Objective - Constitutional Vitals: Vital Signs - 12hr 08/23/17 08/23/17 08/23/17 03:37 03:58 04:00 Temperature Pulse Rate 105 H 78 81 Respiratory 9 L 9 L Rate Blood Pressure O2 Sat by Pulse 83 L Oximetry 08/23/17 08/23/17 08/23/17 04:10 04:42 08:19 Temperature 98.3 F 98.4 F Pulse Rate 72 83 84 Respiratory 12 20 18 Rate Blood Pressure 83/32 114/60 117/67 O2 Sat by Pulse 100 95 97 Oximetry General appearance: Present: no acute distress - EENT Eyes: PERRL ENT: hearing intact - Neck Neck: supple, normal ROM - Respiratory Respiratory effort: normal - Breasts Breasts: deferred Extremities: abnormal (left foot drop) - Gastrointestinal General gastrointestinal: Present: deferred Rectal Exam: deferred - Genitourinary Male genitourinary: deferred - Psychiatric Psychiatric: appropriate mood/affect, cooperative - Labs CBC & Chem 7: 08/23/17 02:35 08/23/17 02:35 Labs: Abnormal lab results 08/22/17 08/23/17 08/23/17 Range/Units 22:22 02:35 02:35 WBC 12.5 H (4.5-11.0) K/mm3 RBC 3.40 L (3.65-5.03) M/mm3 Hgb 10.1 L (11.8-15.2) gm/dl Hct 29.8 L (35.5-45.6) % RDW 16.8 H (13.2-15.2) % Sodium 131 L (137-145) mmol/L Chloride 93.9 L (98-107) mmol/L Creatinine 0.7 L (0.8-1.5) mg/dL Glucose 115 H (75-100) mg/dL Lactic Acid 2.20 H* (0.7-2.0) mmol/L Albumin 3.1 L (3.9-5) g/dL
--- NOTE | 2017-08-23 17:31 | Progress Note ---
Assessment and Plan 52 year-old man presented to ED with L ankle swelling for 4 days prior to admission along with wound drainage from L leg. Superficial femoral artery occlusion Occlusion of the grafts in his left leg s/p : PVD with Ulceration And Occlusion of Left Femoral to Tibial Artery Bypass Graft s/p Thrombolysis Cellulitis of the left lower extremity Hyperlipidemia Tobacco abuse disorder with nicotine dependence -Continue therapy per vascular service -Continue to monitor leg pulses -Analgesia -Antibiotics, plan to de-escalate soon -Smoking cessation counselling done at the bedside. He states that this time he will quit. Offered quit aids to him - Stable for transfer out of the ICU. Subjective Date of service: 08/23/17 Principal diagnosis: left LE occluded fem distal bypass Interval history: Seen and examined. Being monitored in ICU while on EKOS. He denies any chest pain, no shortness of breath, no fevers or chills. On going pain in the left lower extremity but improving. Vitals, labs, medications, chart and imaging reviewed. Discussed on ICU interdisciplinary team rounds Objective - Exam Narrative Exam: General appearance: Present: no acute distress, well-nourished - EENT Eyes: Present: PERRL, EOM intact ENT: hearing intact, clear oral mucosa - Neck Neck: Present: supple, normal ROM - Respiratory Respiratory effort: normal Respiratory: bilateral: CTA - Cardiovascular Rhythm: regular Heart Sounds: Present: S1 & S2 - Extremities Extremities: no ischemia, No edema, normal temperature, normal color Extremity abnormal: other (LLE bandaged). noted pulses - Abdominal General gastrointestinal: soft, non-tender, non-distended - Integumentary Integumentary: Present: clear, warm, dry - Psychiatric Psychiatric: appropriate mood/affect, intact judgment & insight, cooperative - Neurologic Neurologic: CNII-XII intact, moves all extremities Vital Signs - 12hr 08/23/17 08/23/17 08:19 11:49 Temperature 98.4 F Pulse Rate 84 79 Respiratory 18 Rate Blood Pressure 117/67 127/59 O2 Sat by Pulse 97 96 Oximetry CBC and BMP: 08/23/17 02:35 08/24/17 04:56 ABG, PT/INR, D-dimer: PT/INR, D-dimer PT 14.9 Sec. (12.2-14.9) 08/21/17 17:05 INR 1.11 (0.87-1.13) 08/21/17 17:05 Abnormal lab findings: Abnormal Labs 08/17/17 08/17/17 08/18/17 20:59 20:59 01:41 WBC RBC Hgb 10.7 L Hct 33.4 L RDW 16.9 H Lymph % (Auto) [place] % (Auto) 9.2 H [place] # 0.9 H Seg Neutrophils % Seg Neutrophils # PT 15.2 H INR 1.14 H APTT 39.3 H Fibrinogen Heparin Anti-Xa Level Sodium 136 L Potassium Chloride 95.7 L Carbon Dioxide Creatinine Glucose 102 H Lactic Acid Albumin 3.3 L 08/19/17 08/19/17 08/19/17 05:43 05:43 09:57 WBC RBC 3.38 L Hgb 10.1 L Hct 30.0 L RDW 16.6 H Lymph % (Auto) [place] % (Auto) 13.8 H [place] # Seg Neutrophils % Seg Neutrophils # PT INR APTT Fibrinogen Heparin Anti-Xa Level 0.14 L Sodium 134 L Potassium Chloride Carbon Dioxide Creatinine Glucose 117 H Lactic Acid Albumin 08/20/17 08/20/17 08/20/17 08:34 16:15 23:17 WBC RBC Hgb Hct RDW Lymph % (Auto) [place] % (Auto) [place] # Seg Neutrophils % Seg Neutrophils # PT INR APTT Fibrinogen Heparin Anti-Xa Level 0.16 L < 0.10 L 0.27 L Sodium Potassium Chloride Carbon Dioxide Creatinine Glucose Lactic Acid Albumin 08/21/17 08/21/17 08/21/17 17:05 17:05 17:05 WBC RBC Hgb 11.4 L Hct 34.5 L RDW 16.8 H Lymph % (Auto) [place] % (Auto) 7.8 H [place] # Seg Neutrophils % 70.2 H Seg Neutrophils # PT INR APTT 48.1 H Fibrinogen 994 H Heparin Anti-Xa Level Sodium 134 L Potassium Chloride 97.2 L Carbon Dioxide 20 L Creatinine 0.7 L Glucose Lactic Acid Albumin 08/21/17 08/22/17 08/22/17 21:40 04:19 04:19 WBC RBC Hgb 11.2 L 11.2 L Hct 33.4 L 33.3 L RDW 17.3 H 17.0 H Lymph % (Auto) [place] % (Auto) 8.2 H 8.3 H [place] # 0.9 H 0.9 H Seg Neutrophils % 75.7 H 75.6 H Seg Neutrophils # 8.1 H 8.1 H PT INR APTT Fibrinogen 923 H Heparin Anti-Xa Level 0.10 L Sodium Potassium Chloride Carbon Dioxide Creatinine Glucose Lactic Acid Albumin 08/22/17 08/22/17 08/22/17 04:19 10:08 10:08 WBC 11.2 H RBC Hgb 11.1 L Hct 34.7 L RDW 16.6 H Lymph % (Auto) 11.4 L [place] % (Auto) [place] # Seg Neutrophils % 80.6 H Seg Neutrophils # 9.1 H PT INR APTT Fibrinogen 798 H Heparin Anti-Xa Level 0.10 L Sodium 136 L Potassium 5.5 H D Chloride 96.9 L Carbon Dioxide Creatinine Glucose Lactic Acid Albumin 08/22/17 08/23/17 08/23/17 22:22 02:35 02:35 WBC 12.5 H RBC 3.40 L Hgb 10.1 L Hct 29.8 L RDW 16.8 H Lymph % (Auto) [place] % (Auto) [place] # Seg Neutrophils % Seg Neutrophils # PT INR APTT Fibrinogen Heparin Anti-Xa Level Sodium 131 L Potassium Chloride 93.9 L Carbon Dioxide Creatinine 0.7 L Glucose 115 H Lactic Acid 2.20 H* Albumin 3.1 L
--- NOTE | 2017-08-23 20:35 | Anesthesia Consultation ---
Anesthesia Consult and Med Hx Date of service: 08/24/17 - Airway Anesthetic Teeth Evaluation: Good (capped front upper teeth), Caps ROM Head & Neck: Adequate Mental/Hyoid Distance: Adequate Mallampati Class: Class II Intubation Access Assessment: Good - Pulmonary Exam CTA: Yes - Cardiac Exam Cardiac Exam: RRR - Pre-Operative Health Status ASA Pre-Surgery Classification: ASA3 Proposed Anesthetic Plan: General (possible MAC with regional) - Pre-Anesthesia Comment Pre-Anesthesia Comments: 52y M wtih h/o PVD s/p fem artery aneurysm repair, HTN , who presented with acute limb ischemia of LLE, s/p thrombolytic therapy, now for I&D of L thigh. - Pulmonary Hx Smoking: Yes Hx Asthma: No Hx Respiratory Symptoms: No COPD: No Hx Pneumonia: No - Cardiovascular System Hx Hypertension: Yes Hx Heart Attack/AMI: No Hx Angina: No Hx Heart Murmur: No Hx Peripheral Vascular Disease: Yes (s/p reconstructive surgeries both LEs) - Central Nervous System Hx Seizures: No CVA: No Hx Psychiatric Problems: No - Gastrointestinal Hx Gastroesophageal Reflux Disease: No - Endocrine Hx Renal Disease: No Hx Liver Disease: No Hx Insulin Dependent Diabetes: No Hx Non-Insulin Dependent Diabetes: No Hx Thyroid Disease: No - Other Systems Hx Alcohol Use: Yes (occas) Hx Substance Use: No Hx Cancer: No - Additional Comments Anesthesia Medical History Comments: No prev anesthetic complications.
[2017-08-24] MEDS: PERCOCET 5/325 PO PRN ×3 (01:22→22:16)
[2017-08-24] MEDS: ZOSYN/NS 4.5GM/100ML 4.5 GM/100 ML VIAL IV SCH ×3 (05:16→22:17)
[2017-08-24 06:26] LABS: BUN/Creatinine Ratio 13; Blood Urea Nitrogen 9 mg/dL (9-20); Calcium 9.1 mg/dL (8.4-10.2); Hemolysis Index 0
[2017-08-24] MEDS ORDERED: ANCEF/STERILE WATER 2 GM/20 ML 2 GM/20 ML SYRINGE IV NR ×2 (08:00→09:00)
[2017-08-24] MEDS ORDERED: ZOFRAN IV PRN (09:41)
[2017-08-24] MEDS ORDERED: DILAUDID IV PRN (09:41)
--- NOTE | 2017-08-24 09:42 | Anesthesia Day of Surgery ---
Anesthesia Day of Surgery - Day of Surgery Patient Examined: Yes Patient H&P Reviewed: Yes Patient is NPO: Yes
[2017-08-24] MEDS: NACL 0.9% 1000 ML 1,000 ML IV SCH ×2 (09:45→14:18)
[2017-08-24] MEDS ORDERED: VANCOMYCIN PHARMACY TO DOSE IV SCH (10:00)
[2017-08-24] MEDS ORDERED: VERSED IV NR (10:00)
[2017-08-24] MEDS ORDERED: DIPRIVAN 10 MG/ML IV ONE (11:14)
[2017-08-24] MEDS ORDERED: SUBLIMAZE ONE (11:15)
[2017-08-24] MEDS ORDERED: NACL 0.9% IR ONE (11:30)
[2017-08-24] MEDS ORDERED: XYLOCAINE MPF 2% ONE (11:53)
[2017-08-24] MEDS ORDERED: ZOFRAN ONE (11:53)
--- NOTE | 2017-08-24 12:44 | Operative Report ---
Operative Report Operative Report: Date of procedure:08/24/2017 Pre-operative diagnosis: Necrotic fasciotomy site left leg Post-operative diagnosis: Same Procedure name(s): Sharp debridement (using scalpel of lateral compartment fasciotomy incision) of skin subcutaneous tissue and muscle left leg-total debridement area 23 x 6 cm Surgeon: Antonio Cruz MD Foot Piece Assembler: None Anesthesia: LMA EBL: Less than 50 mL Specimen(s): Necrotic tendon and muscle and soft tissue Complications: None Findings: Muscle underneath the necrotic tissue with good Viability . Procedure: Patient in the supine position left leg was then prepped and draped using standard sterile technique. Using sharp dissection with the scalpel necrotic muscle and tendon soft tissue and skin was removed from the entire open wound. Total area debrided was measured at 23 x 6 cm. Some undermining was used to remove the necrotic tissue completely. Tangential excision was also employed to remove the biofilm. Once this was completed hemostasis was obtained using counter pressure and electrocautery. A nonadherent Vaseline gauze dressing with fluff Kerlix was placed and anchored with an Fel[place]o wrap. Patient was extubated and returned to the recovery in stable condition having tolerated the procedure well. Sponge and needle counts correct.
[2017-08-24] MEDS: DILAUDID IV PRN ×4 (13:04→20:44)
--- NOTE | 2017-08-24 13:47 | XRay Report ---
LEFT FOOT, 2 VIEWS History: Osteomyelitis. Findings: There is borderline bone mineralization. Moderate osteoarthritic changes in the midfoot. No evidence for fracture, bone lesion or bony destruction on 2 views of the left foot. The soft tissues are unremarkable. Impression: Degenerative changes. No radiographic findings to suggest osteomyelitis. If further evaluation is needed, MRI with contrast or triple phase bone scan could be obtained.
[2017-08-24] MEDS: ELIQUIS PO SCH ×2 (14:08→22:16)
[2017-08-24] MEDS: PLAVIX PO SCH (14:09)
--- NOTE | 2017-08-24 14:14 | Progress Note ---
Assessment and Plan Patient came from surgery. Debridement of left leg wound.No complaint of chest pain or shortness of breath. Counselled to stop smoking. - Patient Problems (1) Compartment syndrome of left lower extremity Current Visit: No Status: Acute Plan to address problem: Debrident of left lower leg wound.Just back from surgery. Patient is on Zosyn and vancomycin. (2) Tobacco use disorder, continuous Current Visit: No Status: Acute Plan to address problem: Counselled to stop smoking. PFTs as out patient. (3) AV graft thrombosis Current Visit: Yes Status: Acute Plan to address problem: Patient is on Apixaban and Plavix. Subjective Date of service: 08/24/17 Principal diagnosis: left LE occluded fem distal bypass Interval history: Patient came from surgery. Debridement of left leg wound.No complaint of chest pain or shortness of breath. Counselled to stop smoking. Objective Vital Signs - 12hr 08/24/17 08/24/17 08/24/17 05:45 07:26 08:44 Temperature 99.2 F 99.4 F Pulse Rate 80 82 80 Respiratory 18 16 Rate Blood Pressure 102/56 108/58 O2 Sat by Pulse 96 95 Oximetry 08/24/17 08/24/17 08/24/17 09:10 09:49 12:35 Temperature 98.3 F 98.3 F 98.6 F Pulse Rate 80 80 96 H Respiratory 16 16 16 Rate Blood Pressure 114/62 114/62 121/71 O2 Sat by Pulse 95 95 100 Oximetry 08/24/17 08/24/17 08/24/17 12:40 12:45 13:00 Temperature Pulse Rate 90 88 87 Respiratory 19 22 24 Rate Blood Pressure 121/74 114/75 118/70 O2 Sat by Pulse 100 100 99 Oximetry 08/24/17 08/24/17 08/24/17 13:04 13:15 13:20 Temperature Pulse Rate 92 H Respiratory 13 18 20 Rate Blood Pressure 98/61 O2 Sat by Pulse 96 Oximetry 08/24/17 08/24/17 08/24/17 13:30 13:40 13:55 Temperature 98.5 F Pulse Rate 87 85 Respiratory 16 14 16 Rate Blood Pressure 120/54 127/68 O2 Sat by Pulse 94 94 Oximetry Constitutional: no acute distress, alert Eyes: non-icteric ENT: oropharynx moist Neck: supple Effort: normal Ascultation: Bilateral: diminished breath sounds (Slightly prolonged expiratory phase.) Cardiovascular: regular rate and rhythm Gastrointestinal: normoactive bowel sounds Integumentary: normal, rash Extremities: other (Compartmental syndrome left lower leg.) Neurologic: normal mental status, non-focal exam, pupils equal and round, CN II- XII normal Psychiatric: mood appropriate CBC and BMP: 08/23/17 02:35 08/24/17 04:56 ABG, PT/INR, D-dimer: PT/INR, D-dimer PT 14.9 Sec. (12.2-14.9) 08/21/17 17:05 INR 1.11 (0.87-1.13) 08/21/17 17:05 Abnormal lab findings: Abnormal Labs 08/17/17 08/17/17 08/18/17 20:59 20:59 01:41 WBC RBC Hgb 10.7 L Hct 33.4 L RDW 16.9 H Lymph % (Auto) Coffee % (Auto) 9.2 H Coffee # 0.9 H Seg Neutrophils % Seg Neutrophils # PT 15.2 H INR 1.14 H APTT 39.3 H Fibrinogen Heparin Anti-Xa Level Sodium 136 L Potassium Chloride 95.7 L Carbon Dioxide Creatinine Glucose 102 H Lactic Acid Albumin 3.3 L 08/19/17 08/19/17 08/19/17 05:43 05:43 09:57 WBC RBC 3.38 L Hgb 10.1 L Hct 30.0 L RDW 16.6 H Lymph % (Auto) [place] % (Auto) 13.8 H Coffee # Seg Neutrophils % Seg Neutrophils # PT INR APTT Fibrinogen Heparin Anti-Xa Level 0.14 L Sodium 134 L Potassium Chloride Carbon Dioxide Creatinine Glucose 117 H Lactic Acid Albumin 08/20/17 08/20/17 08/20/17 08:34 16:15 23:17 WBC RBC Hgb Hct RDW Lymph % (Auto) [place] % (Auto) Coffee # Seg Neutrophils % Seg Neutrophils # PT INR APTT Fibrinogen Heparin Anti-Xa Level 0.16 L < 0.10 L 0.27 L Sodium Potassium Chloride Carbon Dioxide Creatinine Glucose Lactic Acid Albumin 08/21/17 08/21/17 08/21/17 17:05 17:05 17:05 WBC RBC Hgb 11.4 L Hct 34.5 L RDW 16.8 H Lymph % (Auto) [place] % (Auto) 7.8 H Coffee # Seg Neutrophils % 70.2 H Seg Neutrophils # PT INR APTT 48.1 H Fibrinogen 994 H Heparin Anti-Xa Level Sodium 134 L Potassium Chloride 97.2 L Carbon Dioxide 20 L Creatinine 0.7 L Glucose Lactic Acid Albumin 08/21/17 08/22/17 08/22/17 21:40 04:19 04:19 WBC RBC Hgb 11.2 L 11.2 L Hct 33.4 L 33.3 L RDW 17.3 H 17.0 H Lymph % (Auto) [place] % (Auto) 8.2 H 8.3 H Coffee # 0.9 H 0.9 H Seg Neutrophils % 75.7 H 75.6 H Seg Neutrophils # 8.1 H 8.1 H PT INR APTT Fibrinogen 923 H Heparin Anti-Xa Level 0.10 L Sodium Potassium Chloride Carbon Dioxide Creatinine Glucose Lactic Acid Albumin 08/22/17 08/22/17 08/22/17 04:19 10:08 10:08 WBC 11.2 H RBC Hgb 11.1 L Hct 34.7 L RDW 16.6 H Lymph % (Auto) 11.4 L [place] % (Auto) Coffee # Seg Neutrophils % 80.6 H Seg Neutrophils # 9.1 H PT INR APTT Fibrinogen 798 H Heparin Anti-Xa Level 0.10 L Sodium 136 L Potassium 5.5 H D Chloride 96.9 L Carbon Dioxide Creatinine Glucose Lactic Acid Albumin 08/22/17 08/23/17 08/23/17 22:22 02:35 02:35 WBC 12.5 H RBC 3.40 L Hgb 10.1 L Hct 29.8 L RDW 16.8 H Lymph % (Auto) [place] % (Auto) Coffee # Seg Neutrophils % Seg Neutrophils # PT INR APTT Fibrinogen Heparin Anti-Xa Level Sodium 131 L Potassium Chloride 93.9 L Carbon Dioxide Creatinine 0.7 L Glucose 115 H Lactic Acid 2.20 H* Albumin 3.1 L 08/24/17 04:56 WBC RBC Hgb Hct RDW Lymph % (Auto) [place] % (Auto) Coffee # Seg Neutrophils % Seg Neutrophils # PT INR APTT Fibrinogen Heparin Anti-Xa Level Sodium 136 L Potassium Chloride 96.8 L Carbon Dioxide Creatinine 0.7 L Glucose 103 H Lactic Acid Albumin
[2017-08-24] MEDS: PEPCID PO SCH (14:15)
[2017-08-24] MEDS: LOPID PO SCH ×2 (14:15→22:19)
[2017-08-24] MEDS: SODIUM CHLORIDE FLUSH SYRINGE 10 ML IV SCH ×2 (14:16→22:59)
[2017-08-24] MEDS: VANCOMYCIN/0.45 NS 1 GM/250 ML 1 GM/250 ML BAG IV SCH (17:32)
--- NOTE | 2017-08-24 19:21 | Progress Note ---
Assessment and Plan Assessment and plan: 52 year-old man presented to ED with L ankle swelling for 4 days prior to admission along with wound drainage from L leg. 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 Patient verbalized understanding of risk of continued tobacco use and non complaince to medical treatment to include but not limited to amputation. Cellulitis of the left lower extremity S/P necrotizing fascitomy ID consult for possible abx duration Doubt spesis. Monitor WBC Continue abx, wound care consulted, follow wound cultures wound culture showing multiple organism. ?contaminate continue abx for now. Hyperlipidemia Continue gemfibrozil and statin therapy Mild malnutrition Nutrition consult Tobacco/Nicotin dependance Counselling greater than 15 mins on need and benefits of cessation and risk associated with continuation; Patient verbalized understanding. DVT prophylaxis Discussed with patient and family. History Interval history: Patient seen and exam, no new complaints. on EKOS system. no noted bleeding. S/ P debridement of lower ext fascitis. Hospitalist Physical - Physical exam Narrative exam: General appearance: Present: no acute distress, well-nourished - EENT Eyes: Present: PERRL, EOM intact ENT: hearing intact, clear oral mucosa - Neck Neck: Present: supple, normal ROM - Respiratory Respiratory effort: normal Respiratory: bilateral: CTA - Cardiovascular Rhythm: regular Heart Sounds: Present: S1 & S2 - Extremities Extremities:No edema, normal temperature, normal color Extremity abnormal: other necrotizing lesion noted (LLE bandaged). noted pulses - Abdominal General gastrointestinal: soft, non-tender, non-distended - Integumentary Integumentary: Present: clear, warm, dry - Psychiatric Psychiatric: appropriate mood/affect, intact judgment & insight, cooperative - Neurologic Neurologic: CNII-XII intact, moves all extremities - Constitutional Vitals: Temp Pulse Resp BP Pulse Ox 99.0 F 91 H 18 119/63 96 08/24/17 15:17 08/24/17 15:17 08/24/17 15:17 08/24/17 15:17 08/24/17 15:17 General appearance: Present: no acute distress Results - Labs CBC & Chem 7: 08/23/17 02:35 08/24/17 04:56 Labs: Laboratory Last Values WBC 12.5 K/mm3 (4.5-11.0) H 08/23/17 02:35 RBC 3.40 M/mm3 (3.65-5.03) L 08/23/17 02:35 Hgb 10.1 gm/dl (11.8-15.2) L 08/23/17 02:35 Hct 29.8 % (35.5-45.6) L 08/23/17 02:35 MCV 88 fl (84-94) 08/23/17 02:35 MCH 30 pg (28-32) 08/23/17 02:35 MCHC 34 % (32-34) 08/23/17 02:35 RDW 16.8 % (13.2-15.2) H 08/23/17 02:35 Plt Count 267 K/mm3 (140-440) 08/23/17 02:35 Lymph % (Auto) 11.4 % (13.4-35.0) L 08/22/17 10:08 [place] % (Auto) 6.9 % (0.0-7.3) 08/22/17 10:08 Eos % (Auto) 0.4 % (0.0-4.3) 08/22/17 10:08 Baso % (Auto) 0.7 % (0.0-1.8) 08/22/17 10:08 Lymph # 1.3 K/mm3 (1.2-5.4) 08/22/17 10:08 [place] # 0.8 K/mm3 (0.0-0.8) 08/22/17 10:08 Eos # 0.0 K/mm3 (0.0-0.4) 08/22/17 10:08 Baso # 0.1 K/mm3 (0.0-0.1) 08/22/17 10:08 Seg Neutrophils % 80.6 % (40.0-70.0) H 08/22/17 10:08 Seg Neutrophils # 9.1 K/mm3 (1.8-7.7) H 08/22/17 10:08 PT 14.9 Sec. (12.2-14.9) 08/21/17 17:05 INR 1.11 (0.87-1.13) 08/21/17 17:05 APTT 48.1 Sec. (24.2-36.6) H 08/21/17 17:05 Fibrinogen 798 mg/dl (211-480) H 08/22/17 10:08 Heparin Anti-Xa Level 0.10 U.I./ml (0.3-0.7) L 08/22/17 10:08 Sodium 136 mmol/L (137-145) L 08/24/17 04:56 Potassium 4.3 mmol/L (3.6-5.0) 08/24/17 04:56 Chloride 96.8 mmol/L (98-107) L 08/24/17 04:56 Carbon Dioxide 25 mmol/L (22-30) 08/24/17 04:56 Anion Gap 19 mmol/L 08/24/17 04:56 BUN 9 mg/dL (9-20) 08/24/17 04:56 Creatinine 0.7 mg/dL (0.8-1.5) L 08/24/17 04:56 Estimated GFR > 60 ml/min 08/24/17 04:56 BUN/Creatinine Ratio 13 % 08/24/17 04:56 Glucose 103 mg/dL (75-100) H 08/24/17 04:56 Lactic Acid 1.20 mmol/L (0.7-2.0) 08/23/17 02:35 Calcium 9.1 mg/dL (8.4-10.2) 08/24/17 04:56 Total Bilirubin 0.30 mg/dL (0.1-1.2) 08/23/17 02:35 AST 15 units/L (5-40) 08/23/17 02:35 ALT 22 units/L (7-56) 08/23/17 02:35 Alkaline Phosphatase 71 units/L (35-129) 08/23/17 02:35 Total Protein 7.4 g/dL (6.3-8.2) 08/23/17 02:35 Albumin 3.1 g/dL (3.9-5) L 08/23/17 02:35 Albumin/Globulin Ratio 0.7 % 08/23/17 02:35
[2017-08-25] MEDS: DILAUDID IV PRN ×5 (01:19→21:38)
[2017-08-25] MEDS: VANCOMYCIN/0.45 NS 1 GM/250 ML 1 GM/250 ML BAG IV SCH (02:10)
[2017-08-25] MEDS: ZOSYN/NS 4.5GM/100ML 4.5 GM/100 ML VIAL IV SCH ×2 (06:09→14:00)
[2017-08-25] MEDS: PERCOCET 5/325 PO PRN ×3 (06:11→20:31)
[2017-08-25 06:44] LABS: Hematocrit 26.2 % (35.5-45.6); Mean Corpuscular HGB Conc 34 % (32-34); Mean Corpuscular Hemoglobin 31 pg (28-32); Mean Corpuscular Volume 89 fl (84-94); Platelet Count 306 K/mm3 (140-440); Red Blood Count 2.95 M/mm3 (3.65-5.03); Red Cell Distribution Width 16.7 % (13.2-15.2)
[2017-08-25 06:51] LABS: BUN/Creatinine Ratio 13; Blood Urea Nitrogen 9 mg/dL (9-20); Hemolysis Index 0
[2017-08-25] MEDS: LOPID PO SCH ×3 (08:58→21:36)
[2017-08-25] MEDS: PLAVIX PO SCH (08:59)
[2017-08-25] MEDS: PEPCID PO SCH (08:59)
[2017-08-25] MEDS: ELIQUIS PO SCH ×2 (08:59→21:36)
[2017-08-25] MEDS: SODIUM CHLORIDE FLUSH SYRINGE 10 ML IV SCH ×2 (10:00→22:13)
--- NOTE | 2017-08-25 13:20 | XRay Report ---
CHEST 2 VIEWS INDICATION: Smoking history. COMPARISON: 03/12/2017. FINDINGS: Frontal and lateral chest radiographs demonstrate normal cardiomediastinal silhouette. Now clear lungs. Thoracic spondylosis. CONCLUSION: No acute disease in the chest, improved. Thank you for the opportunity to participate in this patient's care.
--- NOTE | 2017-08-25 15:50 | Consultation ---
History of Present Illness - Reason for Consult Consult date: 08/25/17 surgical wound infection Requesting physician: RAMIRO EDMONDS - History of Present Illness 52 y/o male with history of hyperlipidemia, PVD, left popliteal artery aneurysm status bypass graft, peripheral vascular disease and tobacco abuse with a previous left femoropopliteal bypass that thrombosed and a redo left femoral to tibial bypass that has required multiple procedures to revascularize his left lower extremity developed compartment syndrome s/p left leg fasciotomy on ; admitted on 08/17/2017 due to worsening erythema, edema, tenderness and drainage from the surgical wound. Patient denies any fever, chills. In the ED, initial temperature was 98.8, heart rate 108, respiration 19, blood pressure 121/63. Initial white count 9.7. Hemoglobin 10.7. Platelets 379. Creatinine 0.8. Left leg CTA show occlusion of left femoral artery including grafts. Tissue changes with ulcers in the lateral anterior aspect of the left tibia. Chest x-ray was negative. Patient was taken to the operating room on underwent sharp debridement of the surgical wound. Wound cultures on admission 08/18 grew Klebsiella, Escherichia coli, MSSA and E faecalis. Microbiology: Blood cultures: 08/18 neg Wound cultures: 08/18 grew Klebsiella, Escherichia coli, MSSA and E faecalis. Current Antimicrobials: Zosyn Vancomycin Previous Antimicrobials: Past History Past Medical History: hyperlipidemia, PVD Past Surgical History: Other (left leg bypass 2, left leg fasciotomy, multiple left lower extremity endovascular procedures, right lower extremity vein harvest for left leg bypass) Social history: smoking Medications and Allergies Allergies Allergy/AdvReac Type Severity Reaction Status Date / Time No Known Allergies Allergy Verified 03/27/17 10:30 Home Medications Medication Instructions Recorded Confirmed Last Taken Type AtorvaSTATin [Lipitor] 20 mg PO QHS 01/27/17 08/20/17 03/27/17 History Clopidogrel [Plavix] 75 mg PO QDAY 01/27/17 08/20/17 03/28/17 05:00 History Gemfibrozil [Lopid] 600 mg PO BID 01/27/17 08/20/17 03/27/17 History Apixaban [Eliquis] 5 mg PO Q12HR #60 tablet 03/12/17 08/20/17 03/28/17 05:00 Rx HYDROcodone/APAP 5-325 [[place] 1 each PO Q6HR PRN #50 tablet 03/28/17 08/20/17 Unknown Rx 5-325 mg TAB] oxyCODONE /ACETAMINOPHEN [Percocet 1 tab PO Q6HR PRN 03/28/17 08/20/17 03/27/17 History 5/325 mg] Oxycodone HCl/Acetaminophen 1 each PO Q6HR PRN #15 tablet 05/27/17 08/20/17 Unknown Rx [Percocet 10/325 mg] Active Meds: Active Medications Acetaminophen (Tylenol) 650 mg PO Q4H PRN PRN Reason: Pain MILD(1-3)/Fever >100.5/HERNANDEZ Apixaban (Eliquis) 5 mg PO Q12HR [facility]; Protocol Last Admin: 08/25/17 08:59 Dose: 5 mg Atorvastatin Calcium (Lipitor) 20 mg PO QHS [facility] Last Admin: 08/24/17 22:17 Dose: 20 mg Clopidogrel Bisulfate (Plavix) 75 mg PO QDAY [facility] Last Admin: 08/25/17 08:59 Dose: 75 mg Famotidine (Pepcid) 20 mg PO QDAY KELLY Last Admin: 08/25/17 08:59 Dose: 20 mg Gemfibrozil (Lopid) 600 mg PO BID [facility] Last Admin: 08/25/17 08:58 Dose: 600 mg Hydromorphone HCl (Dilaudid) 1 mg IV Q4H PRN PRN Reason: Pain , Severe (7-10) Last Admin: 08/25/17 09:00 Dose: 1 mg Piperacillin Sod/Tazobactam Sod (Zosyn/Ns 4.5gm/100ml) 4.5 gm in 100 mls @ 200 mls/hr IV Q8HR KELLY; Protocol Last Admin: 08/25/17 06:09 Dose: 200 mls/hr Sodium Chloride (Nacl 0.9% 1000 Ml) 1,000 mls @ 100 mls/hr IV DIRECT KELLY Last Admin: 08/24/17 09:45 Dose: 100 mls/hr Vancomycin HCl (Vancomycin/0.45 Ns 1 Gm/250 Ml) 1 gm in 250 mls @ 166.667 mls/ hr IV Q8H KELLY Last Admin: 08/25/17 02:10 Dose: 166.667 mls/hr Morphine Sulfate (Morphine) 2 mg IV Q4H PRN PRN Reason: Pain, Moderate (4-6) Last Admin: 08/22/17 11:17 Dose: 2 mg Ondansetron HCl (Zofran) 4 mg IV Q8H PRN PRN Reason: Nausea And Vomiting Oxycodone/Acetaminophen (Percocet 5/325) 1 tab PO Q4H PRN PRN Reason: Pain, Moderate (4-6) Last Admin: 08/25/17 06:11 Dose: 1 tab Sodium Chloride (Sodium Chloride Flush Syringe 10 Ml) 10 ml IV BID KELLY Last Admin: 08/24/17 22:59 Dose: 10 ml Sodium Chloride (Sodium Chloride Flush Syringe 10 Ml) 10 ml IV PRN PRN PRN Reason: LINE FLUSH Last Admin: 08/22/17 04:34 Dose: 10 ml Vancomycin HCl (Vancomycin Pharmacy To Dose) 1 each IV PKCONSULT KELLY; Protocol Review of Systems All systems: negative (as per HPI rest of 10 point review of systems negative) Physical Examination - Physical Exam Narrative exam: General appearance: Alert in NAD, conversant Eyes: anicteric sclerae, moist conjunctivae; no lid-lag; PERRLA HENT: Atraumatic; oropharynx clear with moist mucous membranes and no mucosal ulcerations/no oral thrush; normal hard and soft palate. Normal external ears. Neck: Trachea midline; supple, no thyromegaly or lymphadenopathy Lungs: CTA, with normal respiratory effort and no intercostal retractions CV: RRR, no murmurs Abdomen: Soft, non-tender; no masses or hepatosplenomegaly Extremities: before surgery wound care eval - WOUND MEASURES [id number] WITH LARGE AMOUNTS OF NECROTIC TENDON AND MUSCLE Skin: Normal temperature, turgor and texture; no rash, ulcers or subcutaneous nodules Psych: Appropriate affect, alert and oriented to person, place and time. Neuro: alert and oriented x 3. Moving all extermities Lines: No CVL / PICC - Constitutional Vitals: Vital Signs Temp Pulse Resp BP Pulse Ox 98.3 F 74 20 115/64 95 08/25/17 07:20 08/25/17 07:20 08/25/17 07:20 08/25/17 07:20 08/25/17 07:20 Temperature -Last 24 Hours Temperature 98.3 F Temperature 98.9 F Temperature 98.6 F Temperature 98.8 F Results - Labs CBC & Chem 7: 08/25/17 05:37 08/25/17 05:37 Labs: Abnormal lab results 08/25/17 08/25/17 Range/Units 05:37 05:37 RBC 2.95 L (3.65-5.03) M/mm3 Hgb 9.0 L (11.8-15.2) gm/dl Hct 26.2 L (35.5-45.6) % RDW 16.7 H (13.2-15.2) % Sodium 135 L (137-145) mmol/L Chloride 97.9 L (98-107) mmol/L Creatinine 0.7 L (0.8-1.5) mg/dL Glucose 105 H (75-100) mg/dL Assessment and Plan Assessment: 1) Extensive left leg postsurgical wound infected: polymicrobial -Left leg CTA show occlusion of left femoral artery including grafts. Tissue changes with ulcers in the lateral anterior aspect of the left tibia. -S/P operating room on 08/24/2017 underwent sharp debridement of the surgical wound. -Wound cultures on admission 08/18 grew Klebsiella, Escherichia coli, MSSA and E faecalis. 2) History of left leg compartment syndrome s/p left leg fasciotomy on 05/25/17 3) History of PVD and left popliteal artery aneurysm status previous left femoropopliteal bypass that thrombosed and a redo left femoral to tibial bypass that has required multiple procedures to revascularize. 4) Tobacco abuse Plan: -C-reactive protein (CRP) -Stop vancomycin and zosyn -start unasyn IV -in view of extensive wound will consider IV unasyn for 2-3 weeks - will d/w vascular Thank you for your consultation, will follow up with you. Blanka Pierre MD Infectious Diseases Specialist [facility] ([facility] M [phone] O [phone]
--- NOTE | 2017-08-25 16:58 | Progress Note ---
Assessment and Plan 52 year old male status post complicated revascularization of occluded left fem- pop bypass. Foot is warm and well perfused. Strongly dopplerable left PT. Healthy bleeding at debrided areas. Foot drop noted. Cannot wear foot drop splint due to wounds at calf. Hopefully can obtain some PT as outpatient due to uninsured status. Recommend coordination with case management. Tried to contact CM but they were gone for the day. Wound care noted appreciated. Hopefully there will be a wound care center that might be able to provide care for the patient. Recommend coordination with case management. Tried to contact CM but they were gone for the day. Once arrangements optimized, then can be discharged from vascular perspective. Subjective Date of service: 08/25/17 Principal diagnosis: left LE occluded fem distal bypass Interval history: Pain in left leg. Leg foot warm. Strongly dopplerable left PT, weakly dopplerable left DP. Good bleeding noted along derbided area on wound care pictures. Objective - Constitutional Vitals: Vital Signs - 12hr 08/25/17 08/25/17 05:10 07:20 Temperature 98.9 F 98.3 F Pulse Rate 84 74 Respiratory 18 20 Rate Blood Pressure 121/64 115/64 [Left] O2 Sat by Pulse 99 95 Oximetry General appearance: Present: no acute distress - EENT Eyes: EOM intact ENT: hearing intact - Respiratory Respiratory effort: normal Extremities: abnormal (left foot warm and well perfused, left PT strongly dopplerable, left DP weakly dopplerable) - Gastrointestinal General gastrointestinal: Present: soft - Psychiatric Psychiatric: appropriate mood/affect, cooperative - Labs CBC & Chem 7: 08/25/17 05:37 08/25/17 05:37 Labs: Abnormal lab results 08/25/17 08/25/17 Range/Units 05:37 05:37 RBC 2.95 L (3.65-5.03) M/mm3 Hgb 9.0 L (11.8-15.2) gm/dl Hct 26.2 L (35.5-45.6) % RDW 16.7 H (13.2-15.2) % Sodium 135 L (137-145) mmol/L Chloride 97.9 L (98-107) mmol/L Creatinine 0.7 L (0.8-1.5) mg/dL Glucose 105 H (75-100) mg/dL
--- NOTE | 2017-08-25 18:29 | Progress Note ---
Assessment and Plan Patient came from surgery. Debridiment of left leg wound.No complaint of chest pain or shortness of breath.resting on room air. O2 saturation 98%.Patient has history of smoking. Counselled to stop smoking. - Patient Problems (1) Compartment syndrome of left lower extremity Current Visit: No Status: Acute Plan to address problem: Debrident of left lower leg wound.Just back from surgery. Patient is on Unasyn. And vancomycin. (2) Tobacco use disorder, continuous Current Visit: No Status: Acute Plan to address problem: Counselled to stop smoking. PFTs as out patient. (3) AV graft thrombosis Current Visit: Yes Status: Acute Plan to address problem: Patient is on Apixaban and Plavix. Subjective Date of service: 08/25/17 Principal diagnosis: left LE occluded fem distal bypass Interval history: Patient came from surgery. Debridiment of left leg wound.No complaint of chest pain or shortness of breath.resting on room air. O2 saturation 98%.Patient has history of smoking. Counselled to stop smoking. Objective Vital Signs - 12hr 08/25/17 08/25/17 08/25/17 07:20 07:30 15:39 Temperature 98.3 F 99.0 F Pulse Rate 74 77 Respiratory 20 18 Rate Blood Pressure 113/58 Blood Pressure 115/64 [Left] O2 Sat by Pulse 95 98 Oximetry Constitutional: no acute distress, alert Eyes: non-icteric ENT: oropharynx moist Neck: supple Effort: normal Ascultation: Bilateral: diminished breath sounds (Slightly prolonged expiratory phase.) Cardiovascular: regular rate and rhythm Gastrointestinal: normoactive bowel sounds Integumentary: normal, rash Extremities: other (Compartmental syndrome left lower leg.) Neurologic: normal mental status, non-focal exam, pupils equal and round, CN II- XII normal Psychiatric: mood appropriate CBC and BMP: 08/25/17 05:37 08/25/17 05:37 ABG, PT/INR, D-dimer: PT/INR, D-dimer PT 14.9 Sec. (12.2-14.9) 08/21/17 17:05 INR 1.11 (0.87-1.13) 08/21/17 17:05 Abnormal lab findings: Abnormal Labs 08/17/17 08/17/17 08/18/17 20:59 20:59 01:41 WBC RBC Hgb 10.7 L Hct 33.4 L RDW 16.9 H Lymph % (Auto) [place] % (Auto) 9.2 H [place] # 0.9 H Seg Neutrophils % Seg Neutrophils # PT 15.2 H INR 1.14 H APTT 39.3 H Fibrinogen Heparin Anti-Xa Level Sodium 136 L Potassium Chloride 95.7 L Carbon Dioxide Creatinine Glucose 102 H Lactic Acid Albumin 3.3 L 08/19/17 08/19/17 08/19/17 05:43 05:43 09:57 WBC RBC 3.38 L Hgb 10.1 L Hct 30.0 L RDW 16.6 H Lymph % (Auto) [place] % (Auto) 13.8 H [place] # Seg Neutrophils % Seg Neutrophils # PT INR APTT Fibrinogen Heparin Anti-Xa Level 0.14 L Sodium 134 L Potassium Chloride Carbon Dioxide Creatinine Glucose 117 H Lactic Acid Albumin 08/20/17 08/20/17 08/20/17 08:34 16:15 23:17 WBC RBC Hgb Hct RDW Lymph % (Auto) [place] % (Auto) [place] # Seg Neutrophils % Seg Neutrophils # PT INR APTT Fibrinogen Heparin Anti-Xa Level 0.16 L < 0.10 L 0.27 L Sodium Potassium Chloride Carbon Dioxide Creatinine Glucose Lactic Acid Albumin 08/21/17 08/21/17 08/21/17 17:05 17:05 17:05 WBC RBC Hgb 11.4 L Hct 34.5 L RDW 16.8 H Lymph % (Auto) [place] % (Auto) 7.8 H [place] # Seg Neutrophils % 70.2 H Seg Neutrophils # PT INR APTT 48.1 H Fibrinogen 994 H Heparin Anti-Xa Level Sodium 134 L Potassium Chloride 97.2 L Carbon Dioxide 20 L Creatinine 0.7 L Glucose Lactic Acid Albumin 08/21/17 08/22/17 08/22/17 21:40 04:19 04:19 WBC RBC Hgb 11.2 L 11.2 L Hct 33.4 L 33.3 L RDW 17.3 H 17.0 H Lymph % (Auto) [place] % (Auto) 8.2 H 8.3 H [place] # 0.9 H 0.9 H Seg Neutrophils % 75.7 H 75.6 H Seg Neutrophils # 8.1 H 8.1 H PT INR APTT Fibrinogen 923 H Heparin Anti-Xa Level 0.10 L Sodium Potassium Chloride Carbon Dioxide Creatinine Glucose Lactic Acid Albumin 08/22/17 08/22/17 08/22/17 04:19 10:08 10:08 WBC 11.2 H RBC Hgb 11.1 L Hct 34.7 L RDW 16.6 H Lymph % (Auto) 11.4 L [place] % (Auto) [place] # Seg Neutrophils % 80.6 H Seg Neutrophils # 9.1 H PT INR APTT Fibrinogen 798 H Heparin Anti-Xa Level 0.10 L Sodium 136 L Potassium 5.5 H D Chloride 96.9 L Carbon Dioxide Creatinine Glucose Lactic Acid Albumin 08/22/17 08/23/17 08/23/17 22:22 02:35 02:35 WBC 12.5 H RBC 3.40 L Hgb 10.1 L Hct 29.8 L RDW 16.8 H Lymph % (Auto) [place] % (Auto) [place] # Seg Neutrophils % Seg Neutrophils # PT INR APTT Fibrinogen Heparin Anti-Xa Level Sodium 131 L Potassium Chloride 93.9 L Carbon Dioxide Creatinine 0.7 L Glucose 115 H Lactic Acid 2.20 H* Albumin 3.1 L 08/24/17 08/25/17 08/25/17 04:56 05:37 05:37 WBC RBC 2.95 L Hgb 9.0 L Hct 26.2 L RDW 16.7 H Lymph % (Auto) [place] % (Auto) [place] # Seg Neutrophils % Seg Neutrophils # PT INR APTT Fibrinogen Heparin Anti-Xa Level Sodium 136 L 135 L Potassium Chloride 96.8 L 97.9 L Carbon Dioxide Creatinine 0.7 L 0.7 L Glucose 103 H 105 H Lactic Acid Albumin Chest x-ray: report reviewed (No acute disease.), image reviewed
[2017-08-25] MEDS: UNASYN/NS 3 GM/100 ML 3 GM/100 ML BAG IV SCH (20:46)
--- NOTE | 2017-08-25 22:45 | Progress Note ---
Assessment and Plan Assessment and plan: 52 year-old man presented to ED with L ankle swelling for 4 days prior to admission along with wound drainage from L leg. 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 Patient verbalized understanding of risk of continued tobacco use and non complaince to medical treatment to include but not limited to amputation. Cellulitis of the left lower extremity S/P necrotizing fascitomy ID consult started on unaysn S/P infectious fasciatomy Doubt spesis. Monitor WBC Continue abx, wound care consulted, follow wound cultures wound culture showing multiple organism. ?contaminate continue abx for now. Hyperlipidemia Continue gemfibrozil and statin therapy Mild malnutrition Nutrition consult Tobacco/Nicotin dependance Counselling greater than 15 mins on need and benefits of cessation and risk associated with continuation; Patient verbalized understanding. DVT prophylaxis Discussed with patient and family. Anticipate discharge in am History Interval history: Patient seen and exam, no new complaints.s.p debridement. Hospitalist Physical - Physical exam Narrative exam: General appearance: Present: no acute distress, well-nourished - EENT Eyes: Present: PERRL, EOM intact ENT: hearing intact, clear oral mucosa - Neck Neck: Present: supple, normal ROM - Respiratory Respiratory effort: normal Respiratory: bilateral: CTA - Cardiovascular Rhythm: regular Heart Sounds: Present: S1 & S2 - Extremities Extremities:No edema, normal temperature, normal color Extremity abnormal: other necrotizing lesion noted (LLE bandaged). noted pulses - Abdominal General gastrointestinal: soft, non-tender, non-distended - Integumentary Integumentary: Present: clear, warm, dry - Psychiatric Psychiatric: appropriate mood/affect, intact judgment & insight, cooperative - Neurologic Neurologic: CNII-XII intact, moves all extremities - Constitutional Vitals: Temp Pulse Resp BP Pulse Ox 98.7 F 84 20 120/68 97 08/25/17 20:36 08/25/17 20:36 08/25/17 20:36 08/25/17 20:36 08/25/17 20:36 General appearance: Present: no acute distress Results - Labs CBC & Chem 7: 08/25/17 05:37 08/25/17 05:37 Labs: Laboratory Last Values WBC 9.6 K/mm3 (4.5-11.0) 08/25/17 05:37 RBC 2.95 M/mm3 (3.65-5.03) L 08/25/17 05:37 Hgb 9.0 gm/dl (11.8-15.2) L 08/25/17 05:37 Hct 26.2 % (35.5-45.6) L 08/25/17 05:37 MCV 89 fl (84-94) 08/25/17 05:37 MCH 31 pg (28-32) 08/25/17 05:37 MCHC 34 % (32-34) 08/25/17 05:37 RDW 16.7 % (13.2-15.2) H 08/25/17 05:37 Plt Count 306 K/mm3 (140-440) 08/25/17 05:37 Lymph % (Auto) 11.4 % (13.4-35.0) L 08/22/17 10:08 [place] % (Auto) 6.9 % (0.0-7.3) 08/22/17 10:08 Eos % (Auto) 0.4 % (0.0-4.3) 08/22/17 10:08 Baso % (Auto) 0.7 % (0.0-1.8) 08/22/17 10:08 Lymph # 1.3 K/mm3 (1.2-5.4) 08/22/17 10:08 [place] # 0.8 K/mm3 (0.0-0.8) 08/22/17 10:08 Eos # 0.0 K/mm3 (0.0-0.4) 08/22/17 10:08 Baso # 0.1 K/mm3 (0.0-0.1) 08/22/17 10:08 Seg Neutrophils % 80.6 % (40.0-70.0) H 08/22/17 10:08 Seg Neutrophils # 9.1 K/mm3 (1.8-7.7) H 08/22/17 10:08 PT 14.9 Sec. (12.2-14.9) 08/21/17 17:05 INR 1.11 (0.87-1.13) 08/21/17 17:05 APTT 48.1 Sec. (24.2-36.6) H 08/21/17 17:05 Fibrinogen 798 mg/dl (211-480) H 08/22/17 10:08 Heparin Anti-Xa Level 0.10 U.I./ml (0.3-0.7) L 08/22/17 10:08 Sodium 135 mmol/L (137-145) L 08/25/17 05:37 Potassium 5.0 mmol/L (3.6-5.0) 08/25/17 05:37 Chloride 97.9 mmol/L (98-107) L 08/25/17 05:37 Carbon Dioxide 26 mmol/L (22-30) 08/25/17 05:37 Anion Gap 16 mmol/L 08/25/17 05:37 BUN 9 mg/dL (9-20) 08/25/17 05:37 Creatinine 0.7 mg/dL (0.8-1.5) L 08/25/17 05:37 Estimated GFR > 60 ml/min 08/25/17 05:37 BUN/Creatinine Ratio 13 % 08/25/17 05:37 Glucose 105 mg/dL (75-100) H 08/25/17 05:37 Lactic Acid 1.20 mmol/L (0.7-2.0) 08/23/17 02:35 Calcium 9.0 mg/dL (8.4-10.2) 08/25/17 05:37 Total Bilirubin 0.30 mg/dL (0.1-1.2) 08/23/17 02:35 AST 15 units/L (5-40) 08/23/17 02:35 ALT 22 units/L (7-56) 08/23/17 02:35 Alkaline Phosphatase 71 units/L (35-129) 08/23/17 02:35 C-Reactive Protein 7.50 mg/dL (0.00-1.30) H 08/25/17 19:12 Total Protein 7.4 g/dL (6.3-8.2) 08/23/17 02:35 Albumin 3.1 g/dL (3.9-5) L 08/23/17 02:35 Albumin/Globulin Ratio 0.7 % 08/23/17 02:35
[2017-08-26] MEDS: UNASYN/NS 3 GM/100 ML 3 GM/100 ML BAG IV SCH ×5 (01:03→21:01)
[2017-08-26] MEDS: PERCOCET 5/325 PO PRN ×3 (02:00→18:39)
[2017-08-26] MEDS: DILAUDID IV PRN ×3 (07:13→22:08)
--- NOTE | 2017-08-26 09:43 | Progress Note ---
Assessment and Plan 52 year-old man presented to ED with L ankle swelling for 4 days prior to admission along with wound drainage from L leg. Superficial femoral artery occlusion/compartment syndrome Occlusion of the grafts in his left leg s/p : PVD with Ulceration And Occlusion of Left Femoral to Tibial Artery Bypass Graft s/p Thrombolysis Cellulitis of the left lower extremity Hyperlipidemia Tobacco abuse disorder with nicotine dependence -Continue therapy per vascular service -Continue to monitor leg pulses -Analgesia -Antibiotics, plan to de-escalate soon -Smoking cessation counselling done at the bedside. He states that this time he will quit. Offered quit aids to him - Stable for transfer out of the ICU. Subjective Date of service: 08/26/17 Principal diagnosis: left LE occluded fem distal bypass Interval history: Seen and examined. He denies any chest pain, no shortness of breath, no fevers or chills. On going pain in the left lower extremity but improving. Vitals, labs, medications, chart and imaging reviewed. Objective Vital Signs - 12hr 08/26/17 08/26/17 08/26/17 00:16 05:07 07:44 Temperature 97.9 F Pulse Rate 81 80 74 Respiratory 20 20 18 Rate Blood Pressure 110/71 110/65 119/64 O2 Sat by Pulse 97 97 97 Oximetry Constitutional: no acute distress, alert Eyes: non-icteric ENT: oropharynx moist Neck: supple Effort: normal Ascultation: Bilateral: diminished breath sounds (Slightly prolonged expiratory phase.) Cardiovascular: regular rate and rhythm Gastrointestinal: normoactive bowel sounds Integumentary: normal, rash Extremities: other (Compartmental syndrome left lower leg.) Neurologic: normal mental status, non-focal exam, pupils equal and round, CN II- XII normal Psychiatric: mood appropriate CBC and BMP: 08/25/17 05:37 08/25/17 05:37 ABG, PT/INR, D-dimer: PT/INR, D-dimer PT 14.9 Sec. (12.2-14.9) 08/21/17 17:05 INR 1.11 (0.87-1.13) 08/21/17 17:05 Abnormal lab findings: Abnormal Labs 08/17/17 08/17/17 08/18/17 20:59 20:59 01:41 WBC RBC Hgb 10.7 L Hct 33.4 L RDW 16.9 H Lymph % (Auto) [place] % (Auto) 9.2 H [place] # 0.9 H Seg Neutrophils % Seg Neutrophils # PT 15.2 H INR 1.14 H APTT 39.3 H Fibrinogen Heparin Anti-Xa Level Sodium 136 L Potassium Chloride 95.7 L Carbon Dioxide Creatinine Glucose 102 H Lactic Acid C-Reactive Protein Albumin 3.3 L 08/19/17 08/19/17 08/19/17 05:43 05:43 09:57 WBC RBC 3.38 L Hgb 10.1 L Hct 30.0 L RDW 16.6 H Lymph % (Auto) [place] % (Auto) 13.8 H [place] # Seg Neutrophils % Seg Neutrophils # PT INR APTT Fibrinogen Heparin Anti-Xa Level 0.14 L Sodium 134 L Potassium Chloride Carbon Dioxide Creatinine Glucose 117 H Lactic Acid C-Reactive Protein Albumin 08/20/17 08/20/17 08/20/17 08:34 16:15 23:17 WBC RBC Hgb Hct RDW Lymph % (Auto) [place] % (Auto) [place] # Seg Neutrophils % Seg Neutrophils # PT INR APTT Fibrinogen Heparin Anti-Xa Level 0.16 L < 0.10 L 0.27 L Sodium Potassium Chloride Carbon Dioxide Creatinine Glucose Lactic Acid C-Reactive Protein Albumin 08/21/17 08/21/17 08/21/17 17:05 17:05 17:05 WBC RBC Hgb 11.4 L Hct 34.5 L RDW 16.8 H Lymph % (Auto) [place] % (Auto) 7.8 H [place] # Seg Neutrophils % 70.2 H Seg Neutrophils # PT INR APTT 48.1 H Fibrinogen 994 H Heparin Anti-Xa Level Sodium 134 L Potassium Chloride 97.2 L Carbon Dioxide 20 L Creatinine 0.7 L Glucose Lactic Acid C-Reactive Protein Albumin 08/21/17 08/22/17 08/22/17 21:40 04:19 04:19 WBC RBC Hgb 11.2 L 11.2 L Hct 33.4 L 33.3 L RDW 17.3 H 17.0 H Lymph % (Auto) [place] % (Auto) 8.2 H 8.3 H [place] # 0.9 H 0.9 H Seg Neutrophils % 75.7 H 75.6 H Seg Neutrophils # 8.1 H 8.1 H PT INR APTT Fibrinogen 923 H Heparin Anti-Xa Level 0.10 L Sodium Potassium Chloride Carbon Dioxide Creatinine Glucose Lactic Acid C-Reactive Protein Albumin 08/22/17 08/22/17 08/22/17 04:19 10:08 10:08 WBC 11.2 H RBC Hgb 11.1 L Hct 34.7 L RDW 16.6 H Lymph % (Auto) 11.4 L [place] % (Auto) [place] # Seg Neutrophils % 80.6 H Seg Neutrophils # 9.1 H PT INR APTT Fibrinogen 798 H Heparin Anti-Xa Level 0.10 L Sodium 136 L Potassium 5.5 H D Chloride 96.9 L Carbon Dioxide Creatinine Glucose Lactic Acid C-Reactive Protein Albumin 08/22/17 08/23/17 08/23/17 22:22 02:35 02:35 WBC 12.5 H RBC 3.40 L Hgb 10.1 L Hct 29.8 L RDW 16.8 H Lymph % (Auto) [place] % (Auto) [place] # Seg Neutrophils % Seg Neutrophils # PT INR APTT Fibrinogen Heparin Anti-Xa Level Sodium 131 L Potassium Chloride 93.9 L Carbon Dioxide Creatinine 0.7 L Glucose 115 H Lactic Acid 2.20 H* C-Reactive Protein Albumin 3.1 L 08/24/17 08/25/17 08/25/17 04:56 05:37 05:37 WBC RBC 2.95 L Hgb 9.0 L Hct 26.2 L RDW 16.7 H Lymph % (Auto) [place] % (Auto) [place] # Seg Neutrophils % Seg Neutrophils # PT INR APTT Fibrinogen Heparin Anti-Xa Level Sodium 136 L 135 L Potassium Chloride 96.8 L 97.9 L Carbon Dioxide Creatinine 0.7 L 0.7 L Glucose 103 H 105 H Lactic Acid C-Reactive Protein Albumin 08/25/17 19:12 WBC RBC Hgb Hct RDW Lymph % (Auto) [place] % (Auto) [place] # Seg Neutrophils % Seg Neutrophils # PT INR APTT Fibrinogen Heparin Anti-Xa Level Sodium Potassium Chloride Carbon Dioxide Creatinine Glucose Lactic Acid C-Reactive Protein 7.50 H Albumin
[2017-08-26] MEDS: PLAVIX PO SCH (09:47)
[2017-08-26] MEDS: PEPCID PO SCH (09:47)
[2017-08-26] MEDS: ELIQUIS PO SCH ×2 (09:47→21:05)
[2017-08-26] MEDS: LOPID PO SCH ×2 (09:47→21:05)
[2017-08-26] MEDS: SODIUM CHLORIDE FLUSH SYRINGE 10 ML IV SCH ×2 (09:48→22:09)
--- NOTE | 2017-08-26 12:21 | Progress Note ---
Assessment and Plan Total Time Spent with Patient (Minutes): 22 - Patient Problems (1) Callous ulcer with necrosis of muscle Current Visit: Yes Status: Acute Plan to address problem: Necrotic ulcer status post sharp debridement area looks clean swelling is decreased erythema resolved. ID consult recommended Unasyn for 2-3 weeks. We' ll set up home IV antibiotics on Monday. Patient informed of plan and discharge planning issues. (2) Cellulitis Current Visit: Yes Status: Acute Plan to address problem: Saline this resolved I do not see any evidence of sepsis patient is afebrile normal white count erythema has resolved swelling has significantly improved. Unasyn is secondary to the extent of the wound and risk for reinfection. (3) Compartment syndrome of left lower extremity Current Visit: No Status: Acute Plan to address problem: Status post necrotizing fasciotomy (4) Tobacco use disorder, continuous Current Visit: No Status: Acute Plan to address problem: 15 minutes of counseling on smoking cessation and compliance with medical management. told him that it was (5) Vascular insufficiency of limb Current Visit: No Status: Acute History Interval history: No new events overnight patient's pain fairly well controlled. All questions and concerns answered. Hospitalist Physical - Constitutional Vitals: Temp Pulse Resp BP Pulse Ox 97.9 F 74 18 119/64 97 08/26/17 07:44 08/26/17 07:44 08/26/17 07:44 08/26/17 07:44 08/26/17 07:44 General appearance: Present: no acute distress - EENT Eyes: Present: PERRL, EOM intact ENT: hearing intact, clear oral mucosa, dentition normal - Neck Neck: Present: supple, normal ROM - Respiratory Respiratory: bilateral: CTA - Cardiovascular Rhythm: regular - Extremities Extremities: No edema Extremity abnormal: other (this swelling has improved and left leg. Erythema resolved.) Peripheral Pulses: within normal limits - Abdominal General gastrointestinal: soft, non-tender, non-distended - Integumentary Integumentary: Present: clear, warm, dry - Psychiatric Psychiatric: appropriate mood/affect, intact judgment & insight - Neurologic Neurologic: CNII-XII intact Results - Labs CBC & Chem 7: 08/25/17 05:37 08/25/17 05:37 Labs: Laboratory Last Values WBC 9.6 K/mm3 (4.5-11.0) 08/25/17 05:37 RBC 2.95 M/mm3 (3.65-5.03) L 08/25/17 05:37 Hgb 9.0 gm/dl (11.8-15.2) L 08/25/17 05:37 Hct 26.2 % (35.5-45.6) L 08/25/17 05:37 MCV 89 fl (84-94) 08/25/17 05:37 MCH 31 pg (28-32) 08/25/17 05:37 MCHC 34 % (32-34) 08/25/17 05:37 RDW 16.7 % (13.2-15.2) H 08/25/17 05:37 Plt Count 306 K/mm3 (140-440) 08/25/17 05:37 Lymph % (Auto) 11.4 % (13.4-35.0) L 08/22/17 10:08 [place] % (Auto) 6.9 % (0.0-7.3) 08/22/17 10:08 Eos % (Auto) 0.4 % (0.0-4.3) 08/22/17 10:08 Baso % (Auto) 0.7 % (0.0-1.8) 08/22/17 10:08 Lymph # 1.3 K/mm3 (1.2-5.4) 08/22/17 10:08 [place] # 0.8 K/mm3 (0.0-0.8) 08/22/17 10:08 Eos # 0.0 K/mm3 (0.0-0.4) 08/22/17 10:08 Baso # 0.1 K/mm3 (0.0-0.1) 08/22/17 10:08 Seg Neutrophils % 80.6 % (40.0-70.0) H 08/22/17 10:08 Seg Neutrophils # 9.1 K/mm3 (1.8-7.7) H 08/22/17 10:08 PT 14.9 Sec. (12.2-14.9) 08/21/17 17:05 INR 1.11 (0.87-1.13) 08/21/17 17:05 APTT 48.1 Sec. (24.2-36.6) H 08/21/17 17:05 Fibrinogen 798 mg/dl (211-480) H 08/22/17 10:08 Heparin Anti-Xa Level 0.10 U.I./ml (0.3-0.7) L 08/22/17 10:08 Sodium 135 mmol/L (137-145) L 08/25/17 05:37 Potassium 5.0 mmol/L (3.6-5.0) 08/25/17 05:37 Chloride 97.9 mmol/L (98-107) L 08/25/17 05:37 Carbon Dioxide 26 mmol/L (22-30) 08/25/17 05:37 Anion Gap 16 mmol/L 08/25/17 05:37 BUN 9 mg/dL (9-20) 08/25/17 05:37 Creatinine 0.7 mg/dL (0.8-1.5) L 08/25/17 05:37 Estimated GFR > 60 ml/min 08/25/17 05:37 BUN/Creatinine Ratio 13 % 08/25/17 05:37 Glucose 105 mg/dL (75-100) H 08/25/17 05:37 Lactic Acid 1.20 mmol/L (0.7-2.0) 08/23/17 02:35 Calcium 9.0 mg/dL (8.4-10.2) 08/25/17 05:37 Total Bilirubin 0.30 mg/dL (0.1-1.2) 08/23/17 02:35 AST 15 units/L (5-40) 08/23/17 02:35 ALT 22 units/L (7-56) 08/23/17 02:35 Alkaline Phosphatase 71 units/L (35-129) 08/23/17 02:35 C-Reactive Protein 7.50 mg/dL (0.00-1.30) H 08/25/17 19:12 Total Protein 7.4 g/dL (6.3-8.2) 08/23/17 02:35 Albumin 3.1 g/dL (3.9-5) L 08/23/17 02:35 Albumin/Globulin Ratio 0.7 % 08/23/17 02:35 - Imaging and Cardiology Chest x-ray: image reviewed Venous US: report reviewed (CTA left leg), image reviewed
[2017-08-27] MEDS: PERCOCET 5/325 PO PRN ×3 (03:04→19:57)
[2017-08-27] MEDS: UNASYN/NS 3 GM/100 ML 3 GM/100 ML BAG IV SCH ×4 (03:04→21:25)
[2017-08-27] MEDS: DILAUDID IV PRN ×2 (06:51→15:46)
--- NOTE | 2017-08-27 07:54 | Progress Note ---
Assessment and Plan 52 year-old man presented to ED with L ankle swelling for 4 days prior to admission along with wound drainage from L leg. Superficial femoral artery occlusion/compartment syndrome Occlusion of the grafts in his left leg s/p : PVD with Ulceration And Occlusion of Left Femoral to Tibial Artery Bypass Graft s/p Thrombolysis Cellulitis of the left lower extremity Hyperlipidemia Tobacco abuse disorder with nicotine dependence -Continue therapy per vascular service -Continue to monitor leg pulses -Analgesia -Antibiotics, plan to de-escalate soon -Smoking cessation counselling done at the bedside. He states that this time he will quit. Offered quit aids to him - Stable for transfer out of the ICU. Subjective Date of service: 08/27/17 Principal diagnosis: left LE occluded fem distal bypass Interval history: Seen and examined. He denies any chest pain, no shortness of breath, no fevers or chills. On going pain in the left lower extremity but improving. Vitals, labs, medications, chart and imaging reviewed. Plan for discharge planning tomorrow with home IV antibiotics, Unasyn for 2-3 weeks Objective - Exam Narrative Exam: General appearance: Present: no acute distress, well-nourished - EENT Eyes: Present: PERRL, EOM intact ENT: hearing intact, clear oral mucosa - Neck Neck: Present: supple, normal ROM - Respiratory Respiratory effort: normal Respiratory: bilateral: CTA - Cardiovascular Rhythm: regular Heart Sounds: Present: S1 & S2 - Extremities Extremities:No edema, normal temperature, normal color Extremity abnormal: other necrotizing lesion noted (LLE bandaged). noted pulses - Abdominal General gastrointestinal: soft, non-tender, non-distended - Integumentary Integumentary: Present: clear, warm, dry - Psychiatric Psychiatric: appropriate mood/affect, intact judgment & insight, cooperative - Neurologic Neurologic: CNII-XII intact, moves all extremities Vital Signs - 12hr 08/26/17 08/27/17 08/27/17 20:28 00:12 04:51 Temperature 99.1 F 98.9 F 98.7 F Pulse Rate 72 71 64 Respiratory 20 20 20 Rate Blood Pressure 121/63 120/56 112/61 O2 Sat by Pulse 97 96 96 Oximetry Constitutional: no acute distress, alert Eyes: non-icteric ENT: oropharynx moist Neck: supple Effort: normal Ascultation: Bilateral: diminished breath sounds (Slightly prolonged expiratory phase.) Cardiovascular: regular rate and rhythm Gastrointestinal: normoactive bowel sounds Integumentary: normal, rash Extremities: other (Compartmental syndrome left lower leg.) Neurologic: normal mental status, non-focal exam, pupils equal and round, CN II- XII normal Psychiatric: mood appropriate CBC and BMP: 08/25/17 05:37 08/25/17 05:37 ABG, PT/INR, D-dimer: PT/INR, D-dimer PT 14.9 Sec. (12.2-14.9) 08/21/17 17:05 INR 1.11 (0.87-1.13) 08/21/17 17:05 Abnormal lab findings: Abnormal Labs 08/17/17 08/17/17 08/18/17 20:59 20:59 01:41 WBC RBC Hgb 10.7 L Hct 33.4 L RDW 16.9 H Lymph % (Auto) [place] % (Auto) 9.2 H [place] # 0.9 H Seg Neutrophils % Seg Neutrophils # PT 15.2 H INR 1.14 H APTT 39.3 H Fibrinogen Heparin Anti-Xa Level Sodium 136 L Potassium Chloride 95.7 L Carbon Dioxide Creatinine Glucose 102 H Lactic Acid C-Reactive Protein Albumin 3.3 L 08/19/17 08/19/17 08/19/17 05:43 05:43 09:57 WBC RBC 3.38 L Hgb 10.1 L Hct 30.0 L RDW 16.6 H Lymph % (Auto) [place] % (Auto) 13.8 H [place] # Seg Neutrophils % Seg Neutrophils # PT INR APTT Fibrinogen Heparin Anti-Xa Level 0.14 L Sodium 134 L Potassium Chloride Carbon Dioxide Creatinine Glucose 117 H Lactic Acid C-Reactive Protein Albumin 08/20/17 08/20/17 08/20/17 08:34 16:15 23:17 WBC RBC Hgb Hct RDW Lymph % (Auto) [place] % (Auto) [place] # Seg Neutrophils % Seg Neutrophils # PT INR APTT Fibrinogen Heparin Anti-Xa Level 0.16 L < 0.10 L 0.27 L Sodium Potassium Chloride Carbon Dioxide Creatinine Glucose Lactic Acid C-Reactive Protein Albumin 08/21/17 08/21/17 08/21/17 17:05 17:05 17:05 WBC RBC Hgb 11.4 L Hct 34.5 L RDW 16.8 H Lymph % (Auto) [place] % (Auto) 7.8 H [place] # Seg Neutrophils % 70.2 H Seg Neutrophils # PT INR APTT 48.1 H Fibrinogen 994 H Heparin Anti-Xa Level Sodium 134 L Potassium Chloride 97.2 L Carbon Dioxide 20 L Creatinine 0.7 L Glucose Lactic Acid C-Reactive Protein Albumin 08/21/17 08/22/17 08/22/17 21:40 04:19 04:19 WBC RBC Hgb 11.2 L 11.2 L Hct 33.4 L 33.3 L RDW 17.3 H 17.0 H Lymph % (Auto) [place] % (Auto) 8.2 H 8.3 H [place] # 0.9 H 0.9 H Seg Neutrophils % 75.7 H 75.6 H Seg Neutrophils # 8.1 H 8.1 H PT INR APTT Fibrinogen 923 H Heparin Anti-Xa Level 0.10 L Sodium Potassium Chloride Carbon Dioxide Creatinine Glucose Lactic Acid C-Reactive Protein Albumin 08/22/17 08/22/17 08/22/17 04:19 10:08 10:08 WBC 11.2 H RBC Hgb 11.1 L Hct 34.7 L RDW 16.6 H Lymph % (Auto) 11.4 L [place] % (Auto) [place] # Seg Neutrophils % 80.6 H Seg Neutrophils # 9.1 H PT INR APTT Fibrinogen 798 H Heparin Anti-Xa Level 0.10 L Sodium 136 L Potassium 5.5 H D Chloride 96.9 L Carbon Dioxide Creatinine Glucose Lactic Acid C-Reactive Protein Albumin 08/22/17 08/23/17 08/23/17 22:22 02:35 02:35 WBC 12.5 H RBC 3.40 L Hgb 10.1 L Hct 29.8 L RDW 16.8 H Lymph % (Auto) [place] % (Auto) [place] # Seg Neutrophils % Seg Neutrophils # PT INR APTT Fibrinogen Heparin Anti-Xa Level Sodium 131 L Potassium Chloride 93.9 L Carbon Dioxide Creatinine 0.7 L Glucose 115 H Lactic Acid 2.20 H* C-Reactive Protein Albumin 3.1 L 08/24/17 08/25/17 08/25/17 04:56 05:37 05:37 WBC RBC 2.95 L Hgb 9.0 L Hct 26.2 L RDW 16.7 H Lymph % (Auto) [place] % (Auto) [place] # Seg Neutrophils % Seg Neutrophils # PT INR APTT Fibrinogen Heparin Anti-Xa Level Sodium 136 L 135 L Potassium Chloride 96.8 L 97.9 L Carbon Dioxide Creatinine 0.7 L 0.7 L Glucose 103 H 105 H Lactic Acid C-Reactive Protein Albumin 08/25/17 19:12 WBC RBC Hgb Hct RDW Lymph % (Auto) [place] % (Auto) [place] # Seg Neutrophils % Seg Neutrophils # PT INR APTT Fibrinogen Heparin Anti-Xa Level Sodium Potassium Chloride Carbon Dioxide Creatinine Glucose Lactic Acid C-Reactive Protein 7.50 H Albumin
[2017-08-27] MEDS: PLAVIX PO SCH (11:11)
[2017-08-27] MEDS: PEPCID PO SCH (11:12)
[2017-08-27] MEDS: ELIQUIS PO SCH (11:12)
[2017-08-27] MEDS: LOPID PO SCH (11:12)
[2017-08-27] MEDS: SODIUM CHLORIDE FLUSH SYRINGE 10 ML IV SCH ×2 (11:14→23:20)
--- NOTE | 2017-08-27 14:55 | Progress Note ---
Assessment and Plan - Patient Problems (1) Callous ulcer with necrosis of muscle Current Visit: Yes Status: Acute Plan to address problem: Necrotic ulcer status post sharp debridement area looks clean swelling is decreased erythema resolved. ID consult recommended Unasyn for 2-3 weeks. We' ll set up home IV antibiotics on Monday. Patient informed of plan and discharge planning issues. (2) Cellulitis Current Visit: Yes Status: Acute Plan to address problem: Saline this resolved I do not see any evidence of sepsis patient is afebrile normal white count erythema has resolved swelling has significantly improved. Unasyn is secondary to the extent of the wound and risk for reinfection. (3) Compartment syndrome of left lower extremity Current Visit: No Status: Acute Plan to address problem: Status post necrotizing fasciotomy (4) Tobacco use disorder, continuous Current Visit: No Status: Acute Plan to address problem: 15 minutes of counseling on smoking cessation and compliance with medical management. told him that it was (5) Vascular insufficiency of limb Current Visit: No Status: Acute History Interval history: No new changes over p.m. hospital course unremarkable. Lymph node looks much better pain much better plan for home antibiotics set up in the a.m. Hospitalist Physical - Constitutional Vitals: Temp Pulse Resp BP Pulse Ox 98.8 F 45 L 18 118/58 100 08/27/17 07:31 08/27/17 07:34 08/27/17 07:31 08/27/17 07:31 08/27/17 07:34 General appearance: Present: no acute distress - EENT Eyes: Present: PERRL, EOM intact ENT: hearing intact, clear oral mucosa, dentition normal, no oropharyngeal erythema, no poor dentition, no thrush - Neck Neck: Absent: rigidity, enlarged thyroid, masses or JVD - Respiratory Respiratory: bilateral: CTA - Cardiovascular Rhythm: regular - Extremities Extremities: No edema Extremity abnormal: pulses diminished, tenderness, other (minimal erythema) - Abdominal General gastrointestinal: soft, non-tender, non-distended, normal bowel sounds - Psychiatric Psychiatric: appropriate mood/affect, intact judgment & insight - Neurologic Neurologic: CNII-XII intact Results - Labs CBC & Chem 7: 08/25/17 05:37 08/25/17 05:37 Labs: Laboratory Last Values WBC 9.6 K/mm3 (4.5-11.0) 08/25/17 05:37 RBC 2.95 M/mm3 (3.65-5.03) L 08/25/17 05:37 Hgb 9.0 gm/dl (11.8-15.2) L 08/25/17 05:37 Hct 26.2 % (35.5-45.6) L 08/25/17 05:37 MCV 89 fl (84-94) 08/25/17 05:37 MCH 31 pg (28-32) 08/25/17 05:37 MCHC 34 % (32-34) 08/25/17 05:37 RDW 16.7 % (13.2-15.2) H 08/25/17 05:37 Plt Count 306 K/mm3 (140-440) 08/25/17 05:37 Lymph % (Auto) 11.4 % (13.4-35.0) L 08/22/17 10:08 [place] % (Auto) 6.9 % (0.0-7.3) 08/22/17 10:08 Eos % (Auto) 0.4 % (0.0-4.3) 08/22/17 10:08 Baso % (Auto) 0.7 % (0.0-1.8) 08/22/17 10:08 Lymph # 1.3 K/mm3 (1.2-5.4) 08/22/17 10:08 [place] # 0.8 K/mm3 (0.0-0.8) 08/22/17 10:08 Eos # 0.0 K/mm3 (0.0-0.4) 08/22/17 10:08 Baso # 0.1 K/mm3 (0.0-0.1) 08/22/17 10:08 Seg Neutrophils % 80.6 % (40.0-70.0) H 08/22/17 10:08 Seg Neutrophils # 9.1 K/mm3 (1.8-7.7) H 08/22/17 10:08 PT 14.9 Sec. (12.2-14.9) 08/21/17 17:05 INR 1.11 (0.87-1.13) 08/21/17 17:05 APTT 48.1 Sec. (24.2-36.6) H 08/21/17 17:05 Fibrinogen 798 mg/dl (211-480) H 08/22/17 10:08 Heparin Anti-Xa Level 0.10 U.I./ml (0.3-0.7) L 08/22/17 10:08 Sodium 135 mmol/L (137-145) L 08/25/17 05:37 Potassium 5.0 mmol/L (3.6-5.0) 08/25/17 05:37 Chloride 97.9 mmol/L (98-107) L 08/25/17 05:37 Carbon Dioxide 26 mmol/L (22-30) 08/25/17 05:37 Anion Gap 16 mmol/L 08/25/17 05:37 BUN 9 mg/dL (9-20) 08/25/17 05:37 Creatinine 0.7 mg/dL (0.8-1.5) L 08/25/17 05:37 Estimated GFR > 60 ml/min 08/25/17 05:37 BUN/Creatinine Ratio 13 % 08/25/17 05:37 Glucose 105 mg/dL (75-100) H 08/25/17 05:37 Lactic Acid 1.20 mmol/L (0.7-2.0) 08/23/17 02:35 Calcium 9.0 mg/dL (8.4-10.2) 08/25/17 05:37 Total Bilirubin 0.30 mg/dL (0.1-1.2) 08/23/17 02:35 AST 15 units/L (5-40) 08/23/17 02:35 ALT 22 units/L (7-56) 08/23/17 02:35 Alkaline Phosphatase 71 units/L (35-129) 08/23/17 02:35 C-Reactive Protein 7.50 mg/dL (0.00-1.30) H 08/25/17 19:12 Total Protein 7.4 g/dL (6.3-8.2) 08/23/17 02:35 Albumin 3.1 g/dL (3.9-5) L 08/23/17 02:35 Albumin/Globulin Ratio 0.7 % 08/23/17 02:35
--- NOTE | 2017-08-27 15:18 | Progress Note ---
Assessment and Plan Assessment: 1) Extensive left leg postsurgical wound infected: polymicrobial -Left leg CTA show occlusion of left femoral artery including grafts. Tissue changes with ulcers in the lateral anterior aspect of the left tibia. -S/P operating room on 08/24/2017 underwent sharp debridement of the surgical wound. -Wound cultures on admission 08/18 grew Klebsiella, Escherichia coli, MSSA and E faecalis. -CRP=7.5 2) History of left leg compartment syndrome s/p left leg fasciotomy on 05/25/17 3) History of PVD and left popliteal artery aneurysm status previous left femoropopliteal bypass that thrombosed and a redo left femoral to tibial bypass that has required multiple procedures to revascularize. 4) Tobacco abuse 5) Unfunded status Plan: -continue unasyn IV -upon discharge will do levaquin 750 mg po QDAY and amoxicillin 500 mg PO TID total 14 days until 09/08/17 -wound care -ID clinic f/u on 5/3 AM Thank you for your consultation, will follow up with you. Blanka Pierre MD Infectious Diseases Specialist [facility] ([facility]) M [phone] O [phone] Subjective Date of service: 08/27/17 Principal diagnosis: left LE occluded fem distal bypass Interval history: Feels better, no compliants no fever. Microbiology: Blood cultures: 08/18 neg Wound cultures: 08/18 grew Klebsiella, Escherichia coli, MSSA and E faecalis. Current Antimicrobials: Unasyn 08/25 Previous Antimicrobials: Zosyn Vancomycin Objective - Exam Narrative Exam: General appearance: Alert in NAD, conversant Eyes: anicteric sclerae, moist conjunctivae; no lid-lag; PERRLA HENT: Atraumatic; oropharynx clear with moist mucous membranes and no mucosal ulcerations/no oral thrush; normal hard and soft palate. Normal external ears. Neck: Trachea midline; supple, no thyromegaly or lymphadenopathy Lungs: CTA, with normal respiratory effort and no intercostal retractions CV: RRR, no murmurs Abdomen: Soft, non-tender; no masses or hepatosplenomegaly Extremities: before surgery wound care eval - WOUND MEASURES 22X9.5X1 WITH LARGE AMOUNTS OF NECROTIC TENDON AND MUSCLE Skin: Normal temperature, turgor and texture; no rash, ulcers or subcutaneous nodules Psych: Appropriate affect, alert and oriented to person, place and time. Neuro: alert and oriented x 3. Moving all extermities Lines: No CVL / PICC - Constitutional Vitals: Vital Signs Temp Pulse Resp BP Pulse Ox 98.8 F 45 L 18 118/58 100 08/27/17 07:31 08/27/17 07:34 08/27/17 07:31 08/27/17 07:31 08/27/17 07:34 Temperature -Last 24 Hours Temperature 98.8 F Temperature 98.7 F Temperature 98.9 F Temperature 99.1 F Temperature 99.2 F - Labs CBC & Chem 7: 08/25/17 05:37 08/25/17 05:37
[2017-08-28] MEDS: DILAUDID IV PRN ×2 (02:23→09:21)
[2017-08-28] MEDS: ELIQUIS PO SCH ×2 (02:25→09:21)
[2017-08-28] MEDS: PERCOCET 5/325 PO PRN ×2 (02:51→13:24)
[2017-08-28] MEDS: LOPID PO SCH ×2 (02:54→09:21)
[2017-08-28] MEDS: UNASYN/NS 3 GM/100 ML 3 GM/100 ML BAG IV SCH ×2 (03:15→09:30)
[2017-08-28] MEDS: NACL 0.9% 1000 ML 1,000 ML IV SCH (07:30)
[2017-08-28 08:29] VITALS: BP 103/61
[2017-08-28] MEDS: PLAVIX PO SCH (09:21)
[2017-08-28] MEDS: PEPCID PO SCH (09:21)
[2017-08-28] MEDS: SODIUM CHLORIDE FLUSH SYRINGE 10 ML IV SCH (09:31)
--- NOTE | 2017-08-28 10:06 | Discharge Summary ---
Providers - Providers Date of Admission: 08/18/17 02:18 Attending physician: RAMIRO EDMONDS MD 08/18/17 01:49 Consult to Physician [CONS] Stat Comment: Dr. Carrillo ( dr) spoke to Dr. Nicole Consulting Provider: SEB NICOLE Physician Instructions: Reason For Exam: thrombus 08/18/17 11:15 Consult to Wound/ET Nurse [CONS] Routine Reason For Exam: wound eval 08/21/17 19:30 Consult to Physician [CONS] Urgent Comment: Call surgeon for all abnormal labs and surgical co Consulting Provider: ALEJO BLAKE Physician Instructions: Call surgeon sugical concerns and abn. lab values Reason For Exam: Design Drafter Chief pt. postop in CCU 08/23/17 14:37 Physical Therapy Evaluation and Treat [CONS] Routine Comment: Reason For Exam: left foot drop 08/24/17 13:29 Consult to Wound/ET Nurse [CONS] Routine Reason For Exam: wound re-eval 08/24/17 19:19 Consult to Physician [CONS] Routine Comment: Consulting Provider: RALEIGH HAYS Physician Instructions: Reason For Exam: NECROTIZINE FACITIS Primary care physician: ASPEN PRADO Hospitalization Reason for admission: lower extremity severe peripheral arterial disease Condition: Stable Hospital course: 52-year-old man with a history of extensive vascular disease of left leg, popliteal artery aneurysm, femoropopliteal artery thrombosis, tobacco abuser comes emergency room because his left ankle with swelling 4 days. He has a left leg wound since May, he is also status post fasciotomy of the left leg on the last admission, he stated that he noticed a milky brown discharge from the wound and the edges of the wound is red. Unfortunately the patient continues to smoke. He was seen by vascular surgery and underwent a triple lysis. He was placed in the ICU for a day on the [facility] treatment. He did improve with good flow obtained to the lower extremity. His wound was noted to be necrotizing for which he underwent a necrotizing fasciotomy. Infectious diseases was consulted and considering culture growing polymicrobial organisms including Klebsiella Escherichia coli MSSA and E faecalis oral antibiotics following IV antibiotics as recommended on discharge and to follow up with infectious disease, wound care, and musculoskeletal surgery in the office. Patient understands that this is the last option for him and if he continues to have clinical problems to his lower extremity amputation may be the only other solution. He did have extensive counseling about tobacco cessation of 15 minutes. Patient was also placed on Eliquis for anticoagulation. Side effect was discussed in detail with the patient. 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 Cellulitis of the left lower extremity Hyperlipidemia Mild protein calorie malnutrition Tobacco/Nicotin dependance Callous ulcer with necrosis of muscle History of Left leg compartment syndrome status post left leg fasciotomy 2017 Disposition: [id number] TO HOME OR SELFCARE Time spent for discharge: 35 mins Core Measure Documentation - Palliative Care Palliative Care/ Comfort Measures: Not Applicable - Core Measures Any of the following diagnoses?: none - VTE Discharge Requirements Deep Vein Thrombosis/Pulmonary Embolism Present on Admission: No Exam - Physical Exam Narrative exam: General appearance: Present: no acute distress, well-nourished - EENT Eyes: Present: PERRL, EOM intact ENT: hearing intact, clear oral mucosa - Neck Neck: Present: supple, normal ROM - Respiratory Respiratory effort: normal Respiratory: bilateral: CTA - Cardiovascular Rhythm: regular Heart Sounds: Present: S1 & S2 - Extremities Extremities:No edema, normal temperature, normal color Extremity abnormal: (LLE bandaged). noted pulses - Abdominal General gastrointestinal: soft, non-tender, non-distended - Integumentary Integumentary: Present: clear, warm, dry - Psychiatric Psychiatric: appropriate mood/affect, intact judgment & insight, cooperative - Neurologic Neurologic: CNII-XII intact, moves all extremities - Constitutional Vitals: Temp Pulse Resp BP Pulse Ox 98.5 F 78 20 103/61 96 08/28/17 07:28 08/28/17 07:28 08/28/17 09:21 08/28/17 07:28 08/28/17 07:28 Plan Activity: advance as tolerated, fall precautions Diet: low cholesterol Wound: change dressing, per wound nurse instructions Special Instructions: record daily weights, record daily BP diary Durable Medical Equipment Needed Upon Discharge: other (follow at the wound care clinic) Follow up with: ASPEN PRADO MD [Primary Care Provider] - 3-5 Days BRITTNEY PETERSEN MD [Staff Physician] - 7 Days RALEIGH HAYS MD [Staff Physician] - 09/07/17 Prescriptions: AtorvaSTATin [Lipitor] 20 mg PO QHS #30 tablet Amoxicillin 500 mg PO TID #42 capsule Apixaban [Eliquis] 5 mg PO Q12HR #60 tablet Clopidogrel [Plavix] 75 mg PO QDAY #30 tablet Famotidine [Pepcid] 20 mg PO QDAY #30 tablet Gemfibrozil [Lopid] 600 mg PO BID #60 tablet HYDROcodone/APAP 5-325 [[place]hton 5-325 mg TAB] 1 each PO Q6HR PRN #14 tablet PRN Reason: Pain Levofloxacin [Levaquin] 750 mg PO QDAY #14 tablet
--- NOTE | 2017-08-28 12:37 | Progress Note ---
Assessment and Plan Assessment: 1) Extensive left leg postsurgical wound infected: polymicrobial - better -Left leg CTA show occlusion of left femoral artery including grafts. Tissue changes with ulcers in the lateral anterior aspect of the left tibia. -S/P operating room on 08/24/2017 underwent sharp debridement of the surgical wound. -Wound cultures on admission 08/18 grew Klebsiella, Escherichia coli, MSSA and E faecalis. -CRP=7.5 2) History of left leg compartment syndrome s/p left leg fasciotomy on 05/25/17 3) History of PVD and left popliteal artery aneurysm status previous left femoropopliteal bypass that thrombosed and a redo left femoral to tibial bypass that has required multiple procedures to revascularize. 4) Tobacco abuse 5) Unfunded status Plan: -continue unasyn IV -upon discharge will do levaquin 750 mg po QDAY and amoxicillin 500 mg PO TID total 14 days until 09/08/17 -wound care -ID clinic f/u on 53 AM I am signing off Thank you for your consultation, will follow up with you. Blanka Pierre MD Infectious Diseases Specialist [facility] ([facility]) M [phone] O [phone] Subjective Date of service: 08/28/17 Principal diagnosis: left LE occluded fem distal bypass Interval history: Feels better, no complaints no fever. Microbiology: Blood cultures: 08/18 neg Wound cultures: 08/18 grew Klebsiella, Escherichia coli, MSSA and E faecalis. Current Antimicrobials: Unasyn 08/25 Previous Antimicrobials: Zosyn Vancomycin Objective - Exam Narrative Exam: General appearance: Alert in NAD, conversant Eyes: anicteric sclerae, moist conjunctivae; no lid-lag; PERRLA HENT: Atraumatic; oropharynx clear with moist mucous membranes and no mucosal ulcerations/no oral thrush; normal hard and soft palate. Normal external ears. Neck: Trachea midline; supple, no thyromegaly or lymphadenopathy Lungs: CTA, with normal respiratory effort and no intercostal retractions CV: RRR, no murmurs Abdomen: Soft, non-tender; no masses or hepatosplenomegaly Extremities: before surgery wound care eval - WOUND MEASURES 22X9.5X1 WITH LARGE AMOUNTS OF NECROTIC TENDON AND MUSCLE Skin: Normal temperature, turgor and texture; no rash, ulcers or subcutaneous nodules Psych: Appropriate affect, alert and oriented to person, place and time. Neuro: alert and oriented x 3. Moving all extermities Lines: No CVL / PICC - Constitutional Vitals: Vital Signs Temp Pulse Resp BP Pulse Ox 98.5 F 78 20 103/61 96 08/28/17 07:28 08/28/17 07:28 08/28/17 09:21 08/28/17 07:28 08/28/17 07:28 Temperature -Last 24 Hours Temperature 98.5 F Temperature 98.4 F Temperature 98.8 F Temperature 98.9 F - Labs CBC & Chem 7: 08/25/17 05:37 08/25/17 05:37
--- NOTE | 2017-08-28 15:20 | Progress Note ---
Assessment and Plan 1. Acute limb ischemia secondary to occluded prior bypass graft. 2. Infected left lower extremity old surgical incision site. 3. History of high blood pressure. 4. Tobacco use disorder. 5. Anemia that is normocytic. 6. Peripheral vascular disease. 7. Hyperlipidemia. 8. Hyperkalemia. Subjective Date of service: 08/28/17 Principal diagnosis: left LE occluded fem distal bypass Interval history: Patient is seen today for: Seen and examined at bedside; 24-hour events reviewed; nursing and respiratory care staff consulted; Objective Vital Signs - 12hr 08/28/17 08/28/17 08/28/17 03:51 04:20 04:29 Temperature 98.4 F Pulse Rate 64 64 Respiratory 16 Rate Respiratory Rate [Left Lower Leg] Blood Pressure 115/58 O2 Sat by Pulse 97 Oximetry 08/28/17 08/28/17 08/28/17 07:28 09:21 09:51 Temperature 98.5 F Pulse Rate 78 Respiratory 15 20 18 Rate Respiratory Rate [Left Lower Leg] Blood Pressure 103/61 O2 Sat by Pulse 96 Oximetry 08/28/17 08/28/17 10:00 13:24 Temperature Pulse Rate Respiratory 18 Rate Respiratory 18 Rate [Left Lower Leg] Blood Pressure O2 Sat by Pulse Oximetry Constitutional: no acute distress, alert Eyes: non-icteric ENT: oropharynx moist Neck: supple Effort: normal Ascultation: Bilateral: diminished breath sounds (Slightly prolonged expiratory phase.) Cardiovascular: regular rate and rhythm Gastrointestinal: normoactive bowel sounds Integumentary: normal, rash Extremities: other (Compartmental syndrome left lower leg.) Neurologic: normal mental status, non-focal exam, pupils equal and round, CN II- XII normal Psychiatric: mood appropriate CBC and BMP: 08/25/17 05:37 08/25/17 05:37 ABG, PT/INR, D-dimer: PT/INR, D-dimer PT 14.9 Sec. (12.2-14.9) 08/21/17 17:05 INR 1.11 (0.87-1.13) 08/21/17 17:05 Abnormal lab findings: Abnormal Labs 08/17/17 08/17/17 08/18/17 20:59 20:59 01:41 WBC RBC Hgb 10.7 L Hct 33.4 L RDW 16.9 H Lymph % (Auto) Owen % (Auto) 9.2 H Owen # 0.9 H Seg Neutrophils % Seg Neutrophils # PT 15.2 H INR 1.14 H APTT 39.3 H Fibrinogen Heparin Anti-Xa Level Sodium 136 L Potassium Chloride 95.7 L Carbon Dioxide Creatinine Glucose 102 H Lactic Acid C-Reactive Protein Albumin 3.3 L 08/19/17 08/19/17 08/19/17 05:43 05:43 09:57 WBC RBC 3.38 L Hgb 10.1 L Hct 30.0 L RDW 16.6 H Lymph % (Auto) Owen % (Auto) 13.8 H Owen # Seg Neutrophils % Seg Neutrophils # PT INR APTT Fibrinogen Heparin Anti-Xa Level 0.14 L Sodium 134 L Potassium Chloride Carbon Dioxide Creatinine Glucose 117 H Lactic Acid C-Reactive Protein Albumin 08/20/17 08/20/17 08/20/17 08:34 16:15 23:17 WBC RBC Hgb Hct RDW Lymph % (Auto) Owen % (Auto) Owen # Seg Neutrophils % Seg Neutrophils # PT INR APTT Fibrinogen Heparin Anti-Xa Level 0.16 L < 0.10 L 0.27 L Sodium Potassium Chloride Carbon Dioxide Creatinine Glucose Lactic Acid C-Reactive Protein Albumin 08/21/17 08/21/17 08/21/17 17:05 17:05 17:05 WBC RBC Hgb 11.4 L Hct 34.5 L RDW 16.8 H Lymph % (Auto) Owen % (Auto) 7.8 H Owen # Seg Neutrophils % 70.2 H Seg Neutrophils # PT INR APTT 48.1 H Fibrinogen 994 H Heparin Anti-Xa Level Sodium 134 L Potassium Chloride 97.2 L Carbon Dioxide 20 L Creatinine 0.7 L Glucose Lactic Acid C-Reactive Protein Albumin 08/21/17 08/22/17 08/22/17 21:40 04:19 04:19 WBC RBC Hgb 11.2 L 11.2 L Hct 33.4 L 33.3 L RDW 17.3 H 17.0 H Lymph % (Auto) Owen % (Auto) 8.2 H 8.3 H Owen # 0.9 H 0.9 H Seg Neutrophils % 75.7 H 75.6 H Seg Neutrophils # 8.1 H 8.1 H PT INR APTT Fibrinogen 923 H Heparin Anti-Xa Level 0.10 L Sodium Potassium Chloride Carbon Dioxide Creatinine Glucose Lactic Acid C-Reactive Protein Albumin 08/22/17 08/22/17 08/22/17 04:19 10:08 10:08 WBC 11.2 H RBC Hgb 11.1 L Hct 34.7 L RDW 16.6 H Lymph % (Auto) 11.4 L Owen % (Auto) Owen # Seg Neutrophils % 80.6 H Seg Neutrophils # 9.1 H PT INR APTT Fibrinogen 798 H Heparin Anti-Xa Level 0.10 L Sodium 136 L Potassium 5.5 H D Chloride 96.9 L Carbon Dioxide Creatinine Glucose Lactic Acid C-Reactive Protein Albumin 08/22/17 08/23/17 08/23/17 22:22 02:35 02:35 WBC 12.5 H RBC 3.40 L Hgb 10.1 L Hct 29.8 L RDW 16.8 H Lymph % (Auto) Owen % (Auto) Owen # Seg Neutrophils % Seg Neutrophils # PT INR APTT Fibrinogen Heparin Anti-Xa Level Sodium 131 L Potassium Chloride 93.9 L Carbon Dioxide Creatinine 0.7 L Glucose 115 H Lactic Acid 2.20 H* C-Reactive Protein Albumin 3.1 L 08/24/17 08/25/17 08/25/17 04:56 05:37 05:37 WBC RBC 2.95 L Hgb 9.0 L Hct 26.2 L RDW 16.7 H Lymph % (Auto) Owen % (Auto) Owen # Seg Neutrophils % Seg Neutrophils # PT INR APTT Fibrinogen Heparin Anti-Xa Level Sodium 136 L 135 L Potassium Chloride 96.8 L 97.9 L Carbon Dioxide Creatinine 0.7 L 0.7 L Glucose 103 H 105 H Lactic Acid C-Reactive Protein Albumin 08/25/17 19:12 WBC RBC Hgb Hct RDW Lymph % (Auto) Owen % (Auto) Owen # Seg Neutrophils % Seg Neutrophils # PT INR APTT Fibrinogen Heparin Anti-Xa Level Sodium Potassium Chloride Carbon Dioxide Creatinine Glucose Lactic Acid C-Reactive Protein 7.50 H Albumin
== END 2017-08-28 15:48 | disposition home or self-care (01) | DRG 271 ==
LOC: ED 12:09 → 4A 08-18 02:18 → CC1 08-21 17:13 → 4A 08-22 23:10
PROVIDERS: ADMIT Internal Medicine; ATTEND Internal Medicine
PROC: 047L34Z Dilation of Left Femoral Artery with Drug-eluting Intraluminal Device, Percutaneous Approach (ICD-10-PCS; 2017-08-21)
PROC: 047Q34Z Dilation of Left Anterior Tibial Artery with Drug-eluting Intraluminal Device, Percutaneous Approach (ICD-10-PCS; 2017-08-21)
PROC: 047L3DZ Dilation of Left Femoral Artery with Intraluminal Device, Percutaneous Approach (ICD-10-PCS; 2017-08-21)
PROC: 047 Lower Arteries, Dilation (ICD-10-PCS; 2017-08-21)
PROC: 04VL3DZ Restriction of Left Femoral Artery with Intraluminal Device, Percutaneous Approach (ICD-10-PCS; 2017-08-21)
PROC: B41G1ZZ Fluoroscopy of Left Lower Extremity Arteries using Low Osmolar Contrast (ICD-10-PCS; 2017-08-21)
PROC: 3E05317 Introduction of Other Thrombolytic into Peripheral Artery, Percutaneous Approach (ICD-10-PCS; 2017-08-21)
PROC: 04HQ33Z Insertion of Infusion Device into Left Anterior Tibial Artery, Percutaneous Approach (ICD-10-PCS; 2017-08-21)
PROC: 04VL3DZ Restriction of Left Femoral Artery with Intraluminal Device, Percutaneous Approach (ICD-10-PCS; 2017-08-22)
PROC: 047Q3ZZ Dilation of Left Anterior Tibial Artery, Percutaneous Approach (ICD-10-PCS; 2017-08-22)
PROC: 047S3ZZ Dilation of Left Posterior Tibial Artery, Percutaneous Approach (ICD-10-PCS; 2017-08-22)
PROC: 04PY33Z Removal of Infusion Device from Lower Artery, Percutaneous Approach (ICD-10-PCS; 2017-08-22)
PROC: 3E05317 Introduction of Other Thrombolytic into Peripheral Artery, Percutaneous Approach (ICD-10-PCS; 2017-08-22)
PROC: B41G1ZZ Fluoroscopy of Left Lower Extremity Arteries using Low Osmolar Contrast (ICD-10-PCS; 2017-08-22)
PROC: 0LBP0ZZ Excision of Left Lower Leg Tendon, Open Approach (ICD-10-PCS; principal; 2017-08-24)
DX: T82.868A Thrombosis due to vascular prosthetic devices, implants and grafts, initial encounter (principal); T81.4XXA Infection following a procedure, initial encounter; L03.116 Cellulitis of left lower limb; E44.1 Mild protein-calorie malnutrition; L97.823 Non-pressure chronic ulcer of other part of left lower leg with necrosis of muscle; N02.8 Recurrent and persistent hematuria with other morphologic changes; F17.200 Nicotine dependence, unspecified, uncomplicated; I70.292 Other atherosclerosis of native arteries of extremities, left leg; Y83.2 Surgical operation with anastomosis, bypass or graft as the cause of abnormal reaction of the patient, or of later complication, without mention of misadventure at the time of the procedure; D64.9 Anemia, unspecified; E78.5 Hyperlipidemia, unspecified; E87.5 Hyperkalemia; B96.1 Klebsiella pneumoniae [K. pneumoniae] as the cause of diseases classified elsewhere; B96.20 Unspecified Escherichia coli [E. coli] as the cause of diseases classified elsewhere; B95.61 Methicillin susceptible Staphylococcus aureus infection as the cause of diseases classified elsewhere; I70.248 Atherosclerosis of native arteries of left leg with ulceration of other part of lower leg; F12.90 Cannabis use, unspecified, uncomplicated; Y92.89 Other specified places as the place of occurrence of the external cause; Z79.899 Other long term (current) drug therapy; Z82.49 Family history of ischemic heart disease and other diseases of the circulatory system; Z79.01 Long term (current) use of anticoagulants; Z68.24 Body mass index [BMI] 24.0-24.9, adult; Z71.89 Other specified counseling; Z71.6 Tobacco abuse counseling
CPT/HCPCS: 36415; 37184; 37185; 37211; 37214; 37226; 37228; 37232; 71046; 75710; 80048; 80053; 82140; 85025; 85027; 85384; 85520; 85610; 85730; 86140; 87040; 87076; 87116; 87186; 96365; 96366; 96368; 96375; 99291; 99406; A9270-GY; C1725; C1757; C1760; C1769; C1773; C1874; C1887; J0295; J0690; J1170; J1200; J1644; J1650; J2250; J2270; J2405; J2543; J2704; J2997; J3010; J3370; J7030; J7040; J7060; Q9967